=== PATIENT | female | born 1950 | race Caucasian/White ===

== ENCOUNTER 2017-01-17 16:39 | Inpatient (IN) | payer MEDICARE ==
[2017-01-17] VITALS (13 sets, daily range): BP systolic 94–194; BP diastolic 48–102; PULSE 68–81; RESP 16–20; TEMP 97.5–98; O2SAT 95–97
[~2017-01-17] VITALS: Ht 157.5 cm; Wt 93.1 kg
[~2017-01-17 16:39] MED LIST: ADVAI250I PO; ASPI81CH3 PO; GABA100C4 PO; GLUC10TA3 PO; LOSA100T3 PO; METF500 PO; METO25TA6 PO; PREG100 PO; TIOT18I INH; VENTAER INH; WELLTAB39 PO
--- NOTE | 2017-01-17 16:51 | PD ---
HPI Chief Complaint: Chest Pain Time Seen by Provider: 16:48 Travel History International Travel<30 days: No Contact w/Intl Traveler<30days: No Traveled to known affect area: No History of Present Illness HPI This 66-year-old female is complaining of chest pain. She says that last night she started having some pain in the left posterior shoulder blade. The pain is been fairly persistent and today it has moved to the front. There is no history of injury. She does have a history of angina. She had a myocardial infarction about 10 years ago and has 2 stents in her heart. She also has COPD. She does take aspirin every day and has taken her aspirin. She took some nitroglycerin spray which provided some relief and she has been using her oxygen which she generally uses on an as-needed basis fairly persistent PFSH Past Medical History Anxiety: Yes Cardiac Catheterization: Yes COPD: Yes Diabetes: Yes Diminished Hearing: No Kidney Stones: Yes Neurologic: Yes (NEUROPATHY) Immunizations Current: Yes : 4 Para: 3 Miscarriage: 1 Tubal Ligation: Yes Past Surgical History Cholecystectomy: Yes Coronary Stent: Yes (X2) Hysterectomy: Yes Social History Alcohol Use: Yes (OCC) Tobacco Use: No Allergies-Medications (Allergen,Severity, Reaction): Coded Allergies: Iodine (Unverified Allergy, Severe, Anaphylaxis, 01/17/17) Lisinopril (Unverified Allergy, Severe, Cough, 01/17/17) Reported Meds & Prescriptions Reported Meds & Active Scripts Active Reported Nitroglycerin Lingual [place] (Nitroglycerin) 400 Mcg/Act [place] 1 [place] SL DIRECTED PRN ONE SPRAY NEEDED FOR CHEST PAIN, MAY REPEAT EVERY FIVE MINUTES FOR A TOTAL OF 3 DOSES OR CALL 911 IF NO RELIEF Ventolin Hfa 18 GM Inh (Albuterol Sulfate) 90 Mcg/Act Aer 1 Puff INH Q4H PRN Breo Ellipta Inh (Fluticasone/Vilanterol) 100-25 Mcg/Act Inh 1 Puff INH DAILY Use daily at the same time. Spiriva Handihaler (Tiotropium Inh) 18 Mcg Cap 18 Mcg INH DAILY 1 capsule = 18 mcg Melatonin 10 Mg Tab 10 Mg PO HS PRN Gabapentin 100 Mg Cap 100 Mg PO BID Bupropion HCl ER 24 HR (Bupropion HCl) 300 Mg Tab 300 Mg PO DAILY Atorvastatin (Atorvastatin Calcium) 40 Mg Tab 40 Mg PO HS Losartan-Hydrochlorothiazide 50-12.5 Mg Tab 1 Tab PO DAILY Metoprolol Succinate ER 24 HR (Metoprolol Succinate) 25 Mg Tab 25 Mg PO DAILY Review of Systems General / Constitutional: No: Fever, Chills Eyes: No: Diploplia, Blurred Vision HENT: No: Headaches, Vertigo Cardiovascular: Positive: Chest Pain or Discomfort, No: Palpitations Respiratory: Positive: Shortness of Breath (chronic) Gastrointestinal: No: Nausea, Vomiting Genitourinary: No: Frequency, Dysuria Musculoskeletal: No: Myalgias Skin: No Rash, No Itching Psychiatric: No: Anxiety Hematologic/Lymphatic: No: Easy Bruising Physical Exam Narrative GENERAL: Well-developed female SKIN: Warm and dry. HEAD: Atraumatic. Normocephalic. EYES: Pupils equal and round. No scleral icterus. No injection or drainage. ENT: No nasal bleeding or discharge. Mucous membranes pink and moist. NECK: Trachea midline. No JVD. CARDIOVASCULAR: Regular rate and rhythm. No murmur appreciated. RESPIRATORY: No accessory muscle use. Breath sounds diminished bilaterally GASTROINTESTINAL: Abdomen soft, non-tender, nondistended. Hepatic and splenic margins not palpable. MUSCULOSKELETAL: No obvious deformities. No clubbing. No cyanosis. No edema. NEUROLOGICAL: Awake and alert. No obvious cranial nerve deficits. Motor grossly within normal limits. Normal speech. PSYCHIATRIC: Appropriate mood and affect; insight and judgment normal. Data Data Last Documented VS Vital Signs Date Time Temp Pulse Resp B/P Pulse Ox O2 Delivery O2 Flow Rate FiO2 01/17/17 18:11 72 18 138/75 96 Nasal Cannula 3 01/17/17 16:52 97.6 Orders Electrocardiogram (01/17/17 16:48) Basic Metabolic Panel (Bmp) (01/17/17 16:48) B-Type Natriuretic Peptide (01/17/17 16:48) Ckmb (Isoenzyme) Profile (01/17/17 16:48) Complete Blood Count With Diff (01/17/17 16:48) Magnesium (Mg) (01/17/17 16:48) Prothrombin Time / Inr (Pt) (01/17/17 16:48) Act Partial Throm Time (Ptt) (01/17/17 16:48) Troponin I (01/17/17 16:48) Chest, Single Ap (01/17/17 16:48) Ecg Monitoring (01/17/17 16:48) Iv Access Insert/Monitor (01/17/17 16:48) Oximetry (01/17/17 16:48) Oxygen Administration (01/17/17 16:48) Morphine Inj (Morphine Inj) (01/17/17 17:00) Nitroglycerin 2% Oint (Nitroglycerin 2% (01/17/17 17:00) Sodium Chloride 0.9% Flush (Ns Flush) (01/17/17 17:00) Ondansetron Inj (Zofran Inj) (01/17/17 17:00) Admit Order (Ed Use Only) (01/17/17 18:11) Labs Laboratory Tests Test 01/17/17 17:06 White Blood Count 9.6 TH/MM3 Red Blood Count 4.99 MIL/MM3 Hemoglobin 14.8 GM/DL Hematocrit 45.6 % Mean Corpuscular Volume 91.4 FL Mean Corpuscular Hemoglobin 29.6 PG Mean Corpuscular Hemoglobin 32.4 % Concent Red Cell Distribution Width 12.7 % Platelet Count 214 TH/MM3 Mean Platelet Volume 8.4 FL Neutrophils (%) (Auto) 68.8 % Lymphocytes (%) (Auto) 16.2 % Monocytes (%) (Auto) 9.1 % Eosinophils (%) (Auto) 2.4 % Basophils (%) (Auto) 3.5 % Neutrophils # (Auto) 6.6 TH/MM3 Lymphocytes # (Auto) 1.6 TH/MM3 Monocytes # (Auto) 0.9 TH/MM3 Eosinophils # (Auto) 0.2 TH/MM3 Basophils # (Auto) 0.3 TH/MM3 CBC Comment DIFF FINAL Differential Comment Prothrombin Time 10.7 SEC Prothromb Time International 1.0 RATIO Ratio Activated Partial 26.7 SEC Thromboplast Time Sodium Level 136 MEQ/L Potassium Level 4.0 MEQ/L Chloride Level 95 MEQ/L Carbon Dioxide Level 32.7 MEQ/L Anion Gap 8 MEQ/L Blood Urea Nitrogen 15 MG/DL Creatinine 0.91 MG/DL Estimat Glomerular Filtration 62 ML/MIN Rate Random Glucose 129 MG/DL Calcium Level 9.8 MG/DL Magnesium Level 2.2 MG/DL Total Creatine Kinase 80 U/L Troponin I LESS THAN 0.02 NG/ML B-Type Natriuretic Peptide 25 PG/ML MDM Medical Decision Making Medical Screen Exam Complete: Yes Emergency Medical Condition: Yes Medical Record Reviewed: Yes Differential Diagnosis Differential includes COPD, coronary artery disease, atypical chest pain Narrative Course EKG shows normal sinus rhythm. Troponin is normal. Patient has been given Nitropaste and morphine with resolution of her pain. She'll be admitted to the chest pain center Diagnosis Primary Impression: Chest pain Qualified Code: R07.9 - Chest pain, unspecified type Disposition: DISCHARGE HOME Condition: Stable Esa Bernardo MD Jan 17, 2017 16:51
[2017-01-17] MEDS ORDERED: MORPHINE SULFATE 4 MG/ML INJ IV PUSH ONE (17:00)
[2017-01-17] MEDS ORDERED: ONDANSETRON HCL 4 MG/2 ML VIAL IV PUSH ONE (17:00)
[2017-01-17] MEDS ORDERED: NITROGLYCERIN 2% OINT 1 GM PACKET TOP ONE (17:00)
[2017-01-17] MEDS ORDERED: SODIUM CHLORIDE 0.9% FLUSH 5 ML FLUSH IVF PRN ×2 (17:00→18:15)
[2017-01-17] MEDS ORDERED: FLUT1INH INH (17:02)
[2017-01-17] MEDS ORDERED: NITR400A5 SL (17:02)
[2017-01-17] MEDS ORDERED: VENTAER INH (17:02)
[2017-01-17] MEDS ORDERED: GABA100C4 PO (17:02)
[2017-01-17] MEDS ORDERED: ATOR40TA16 PO (17:02)
[2017-01-17] MEDS ORDERED: BUPR300T PO (17:02)
[2017-01-17] MEDS ORDERED: MELA1TAB18 PO (17:02)
[2017-01-17] MEDS ORDERED: LOSA50TA2 PO (17:02)
[2017-01-17] MEDS ORDERED: SPIRCAP INH (17:02)
[2017-01-17] MEDS ORDERED: METO25TA6 PO (17:02)
[2017-01-17 17:10] LABS: AUTOMATED NEUTROPHIL # 6.6 TH/MM3 (1.8-7.7); BASOPHIL # 0.3 TH/MM3 (0-0.2); BASOPHIL % 3.5 % (0.0-2.0); EOSINOPHIL # 0.2 TH/MM3 (0-0.4); EOSINOPHIL % 2.4 % (0.0-4.0); HEMATOCRIT 45.6 % (35.0-46.0); HEMO FLAGS DIFF FINAL; LYMPH % 16.2 % (9.0-44.0); LYMPHOCYTE # 1.6 TH/MM3 (1.0-4.8); MEAN CELL VOLUME 91.4 FL (80.0-100.0); MEAN CORPUSCULAR HEMOGLOBIN 29.6 PG (27.0-34.0); MEAN CORPUSCULAR HGB CONC 32.4 % (32.0-36.0); MONO % 9.1 % (0.0-8.0); NEUT % 68.8 % (16.0-70.0); PLATELET COUNT 214 TH/MM3 (150-450); RED BLOOD COUNT 4.99 MIL/MM3 (4.00-5.30); RED CELL DISTRIBUTION WIDTH 12.7 % (11.6-17.2); WHITE BLOOD COUNT 9.6 TH/MM3 (4.0-11.0)
[2017-01-17 17:19] LABS: CHLORIDE 95 MEQ/L (98-107); SODIUM (NA) 136 MEQ/L (136-145)
[2017-01-17 17:22] LABS: ANION GAP 8 MEQ/L (5-15); BICARBONATE 32.7 MEQ/L (21.0-32.0); BLOOD UREA NITROGEN 15 MG/DL (7-18); MAGNESIUM 2.2 MG/DL (1.5-2.5)
[2017-01-17 17:24] LABS: APTT (PATIENT) 26.7 SEC (24.3-30.1); PROTHROMBIN TIME - PATIENT 10.7 SEC (9.8-11.6)
[2017-01-17 17:25] LABS: GLOMERULAR FILTRATION RATE 62 ML/MIN (>89)
[2017-01-17 17:32] LABS: CREATINE KINASE 80 U/L (26-192)
[2017-01-17 20:44] LABS: CREATINE KINASE 58 U/L (26-192)
--- NOTE | 2017-01-17 21:28 | RADHPO ---
EXAM DATE/TIME: 01/17/2017 17:12 [facility] COMPARISON: No previous studies available for comparison. INDICATIONS : Chest pains for two days. MEDICAL HISTORY : Cardiovascular disease. SURGICAL HISTORY : Cardiac stents placed tens years ago. ENCOUNTER: Initial ACUITY: 2 days PAIN SCORE: 5/10 LOCATION: Left anterior side of chest that radiates down the arm and to her back. FINDINGS: There are minimal bibasilar parenchymal changes worse on the right than the left. The heart is minim ally enlarged. CONCLUSION: Mild increased density right base suggesting early airspace disease. Shon Knowles MD FACR on January 17, 2017 at 17:23 Board Certified Radiologist. This report was verified electronically.
[2017-01-17] MEDS ORDERED: MORPHINE SULFATE 4 MG/ML INJ IV PRN (21:30)
[2017-01-17] MEDS ORDERED: ACETAMINOPHEN 325 MG TAB PO PRN (21:30)
[2017-01-17] MEDS ORDERED: NALOXONE HCL 0.4 MG/ML AMP IV PRN (21:30)
[2017-01-17] MEDS: NITROGLYCERIN 0.4 MG SL 25 TABS/BTL SL PRN (21:34)
[2017-01-17] MEDS: SODIUM CHLORIDE 0.9% FLUSH 5 ML FLUSH IVF SCH (21:35)
[2017-01-17] MEDS: ONDANSETRON HCL 4 MG/2 ML VIAL IV PRN (21:44)
[2017-01-17] MEDS: ACETAMINOPHEN/HYDROcodone 325 MG/7.5 MG TAB PO PRN (21:58)
[2017-01-18] VITALS (15 sets, daily range): BP systolic 97–129; BP diastolic 60–83; PULSE 67–94; RESP 16–20; TEMP 88.6–98.5; O2SAT 91–96
[2017-01-18] MEDS: NITROGLYCERIN 2% OINT 1 GM PACKET TOP SCH ×3 (00:13→23:09)
[2017-01-18 01:33] LABS: CREATINE KINASE 58 U/L (26-192)
[2017-01-18] MEDS: NITROGLYCERIN 0.4 MG SL 25 TABS/BTL SL PRN ×2 (03:15→07:47)
[2017-01-18 09:00] LABS: CREATINE KINASE 52 U/L (26-192)
[2017-01-18] MEDS ORDERED: NON-FORMULARY DRUG (Losartan-Hydrochlorothiazide 1 TAB) PO SCH (09:00)
[2017-01-18] MEDS ORDERED: HYDROCHLOROTHIAZIDE 12.5 MG CAP PO SCH (09:00)
[2017-01-18] MEDS ORDERED: buPROPion HCL 150 MG EXTENDED RELEASE TAB PO SCH (09:00)
[2017-01-18] MEDS: FLUTICASONE 100 MCG/VILANTEROL 25 MCG INHALER INH SCH (10:00)
[2017-01-18] MEDS: LOSARTAN 50 MG TAB PO SCH (10:21)
[2017-01-18] MEDS: SODIUM CHLORIDE 0.9% FLUSH 5 ML FLUSH IVF SCH (10:21)
[2017-01-18] MEDS: GABAPENTIN 100 MG CAP PO SCH ×2 (10:21→21:36)
[2017-01-18] MEDS: METOPROLOL SUCCINATE 25 MG EXTENDED RELEASE TAB PO SCH (10:21)
[2017-01-18] MEDS: ASPIRIN EC 325 MG TABEC PO SCH (10:22)
[2017-01-18] MEDS ORDERED: HYDROCORTISONE SOD SUCCINATE 100 MG VIAL IV ONE (11:00)
--- NOTE | 2017-01-18 11:22 | HHI.HP ---
[facility] Service [facility] Primary Care Physician Gifty Marsh MD Admission Diagnosis CHEST PAIN Diagnoses: (1) Chest pain Diagnosis: Principal (2) Unstable angina Diagnosis: Principal (3) Coronary artery disease Diagnosis: Secondary (4) Hypertension Diagnosis: Secondary (5) Hyperlipidemia Diagnosis: Secondary (6) Diabetes Diagnosis: Secondary Chief Complaint: Chest pain Travel History International Travel<30 Days: No Contact w/Intl Traveler <30 Da: No Traveled to Known Affected Are: No History of Present Illness 66-year-old female with known history of hypertension, hyperlipidemia , coronary disease, cardiac stent placement, diabetes, chronic respiratory failure with oxygen dependency, chronic affective pulmonary disease, history of tobacco use who presented to hospital because 2 day history of chest pain. Patient states that she started developing pain 2 days ago which developed in her left scapular region and radiated into her left anterior chest initially, then started developing left anterior chest pain radiating into the left arm. She denied any nausea, vomiting with the chest discomfort. She did state that she had episodes of feeling hot flash. She did have shortness of breath and dyspnea. She states that the pain can happen at all times. Management happening at rest when she is sitting down relaxing. The pain lasts for approximately 5 minutes in a crescendo type pain with worsening pain 8/10 on a pain scale at its peak. She did not take any medication at home. She does have history coronary artery disease with 2 stent placement. She has not followed up with hand welt butter to undergo any follow-up stress testing or cardiac evaluations. She is not on any aspirin at this time she is on statin for hyperlipidemia. Patient states that the pain did not improve so she came to emergency department for evaluation patient was started on nitroglycerin with minimal relief. She does have nitro paste on at this time and still having active chest pain. Patient did have chest discomfort while evaluating her this morning. Patient did appear to be distressed with her chest discomfort. She was having shortness of breath and dyspnea. Patient was given sublingual with improvement of her chest discomfort. Review of Systems Constitutional: COMPLAINS OF: Diaphoretic episodes, DENIES: Fatigue, Fever, Weight gain, Weight loss, Chills, Dizziness, Change in appetite, Night Sweats Eyes: DENIES: Blurred vision, Diplopia, Eye inflammation, Eye pain, Vision loss , Double Vision Ears, nose, mouth, throat: DENIES: Vertigo, Nasal discharge, Throat pain, Ear Pain, Running Nose, Sinus Pain Respiratory: COMPLAINS OF: Shortness of breath, DENIES: Apneas, Cough, Snoring , Wheezing, Hemoptysis, Sputum production Cardiovascular: COMPLAINS OF: Chest pain, Dyspnea on Exertion, DENIES: Palpitations, Syncope, Lower Extremity Edema, Orthopnea Gastrointestinal: DENIES: Abdominal pain, Black stools, Bloody stools, Constipation, Diarrhea, Nausea, Vomiting, Difficulty Swallowing, Anorexia Neurologic: DENIES: Abnormal gait, Headache, Localized weakness, Paresthesias, Seizures, Speech Problems, Tremor, Poor Balance Psychiatric: DENIES: Anxiety, Confusion, Mood changes, Depression, Hallucinations, Agitation, Suicidal Ideation, Homicidal Ideation, Delusions Past Family Social History Past Medical History Hypertension Hyperlipidemia Diabetes History myocardial infarction Coronary artery disease Chronic obstructive pulmonary disease Chronic respiratory failure with oxygen dependency Anxiety Past Surgical History Cardiac catheterization with stenting Cholecystectomy Tubal ligation Hysterectomy Reported Medications Reported Meds & Active Scripts Active Reported Nitroglycerin Lingual [place] (Nitroglycerin) 400 Mcg/Act [place] 1 [place] SL DIRECTED PRN ONE SPRAY NEEDED FOR CHEST PAIN, MAY REPEAT EVERY FIVE MINUTES FOR A TOTAL OF 3 DOSES OR CALL 911 IF NO RELIEF Ventolin Hfa 18 GM Inh (Albuterol Sulfate) 90 Mcg/Act Aer 1 Puff INH Q4H PRN Breo Ellipta Inh (Fluticasone/Vilanterol) 100-25 Mcg/Act Inh 1 Puff INH DAILY Use daily at the same time. Spiriva Handihaler (Tiotropium Inh) 18 Mcg Cap 18 Mcg INH DAILY 1 capsule = 18 mcg Melatonin 10 Mg Tab 10 Mg PO HS PRN Gabapentin 100 Mg Cap 100 Mg PO BID Bupropion HCl ER 24 HR (Bupropion HCl) 300 Mg Tab 300 Mg PO DAILY Atorvastatin (Atorvastatin Calcium) 40 Mg Tab 40 Mg PO HS Losartan-Hydrochlorothiazide 50-12.5 Mg Tab 1 Tab PO DAILY Metoprolol Succinate ER 24 HR (Metoprolol Succinate) 25 Mg Tab 25 Mg PO DAILY Allergies: Coded Allergies: Iodine (Unverified Allergy, Severe, Anaphylaxis, 01/17/17) Lisinopril (Unverified Allergy, Severe, Cough, 01/17/17) Family History Reviewed and unremarkable Social History Patient quit smoking 5 years ago, prior to that she smoked up to 3 pack a cigarettes a day since she was 20 years old. Patient denies any alcohol or illicit drugs Physical Exam Vital Signs Vital Signs Date Time Temp Pulse Resp B/P Pulse Ox O2 Delivery O2 Flow Rate FiO2 01/18/17 08:24 97.5 71 18 112/83 91 01/18/17 08:06 20 01/18/17 04:00 96.5 67 16 97/60 96 01/18/17 00:00 96.9 67 20 118/73 91 01/17/17 22:57 97.5 71 20 107/73 95 01/17/17 22:30 68 01/17/17 22:15 98.0 71 18 106/70 95 3 01/17/17 21:54 75 16 96/48 97 Nasal Cannula 3 01/17/17 21:37 80 18 94/68 97 Nasal Cannula 3 01/17/17 21:36 79 18 115/67 97 Nasal Cannula 3 01/17/17 20:58 71 16 107/58 97 Nasal Cannula 3 01/17/17 19:41 70 18 108/49 97 Nasal Cannula 3 01/17/17 19:41 70 18 97 Nasal Cannula 3 01/17/17 19:38 96 Nasal Cannula 3.00 01/17/17 18:11 72 18 138/75 96 Nasal Cannula 3 01/17/17 17:32 73 18 163/84 96 Nasal Cannula 3 01/17/17 16:54 95 Nasal Cannula 3 01/17/17 16:54 95 Nasal Cannula 3 01/17/17 16:52 97.6 81 18 194/102 95 Physical Exam GENERAL: Well-developed, well-nourished, in no acute distress. alert and orientated HEENT: Head is normocephalic without any lesions or masses noted. Facial features are symmetric. Eyes: Pupils equal round reactive to light. Extraocular muscles are intact. Conjunctivae were clear. Oropharyngeal: Pharynx without any erythema edema. Tongue is midline without deviation. Buccal mucosa is moist without any masses or lesions NECK: Supple without any masses. Trachea midline no deviation. No JVD, no bruits are appreciated CARDIAC: Regular rhythm, regular rate. S1/S2 are heard. No murmurs gallops or rubs. LUNGS: Clear to auscultation bilaterally. No wheeze, rhonchi or rales. No use of accessory muscles on inspiration or expiration. ABDOMEN: Soft, nontender. Nondistended. Bowel sounds heard in all 4 quadrants. No organomegaly or masses. Negative rebound, negative guarding EXTREMITIES: No edema, pulses are equal bilaterally. No cyanosis or clubbing NEUROLOGY: Mood and affect appear appropriate. Cranial nerves II through XII grossly intact. Muscle strength 5/5 in upper and lower extremities bilaterally. Deep tendon reflexes are 2+ in upper and lower extremities bilaterally. Laboratory Laboratory Tests Test 01/17/17 01/17/17 01/18/17 01/18/17 17:06 20:06 00:05 08:30 White Blood Count 9.6 Red Blood Count 4.99 Hemoglobin 14.8 Hematocrit 45.6 Mean Corpuscular Volume 91.4 Mean Corpuscular Hemoglobin 29.6 Mean Corpuscular Hemoglobin 32.4 Concent Red Cell Distribution Width 12.7 Platelet Count 214 Mean Platelet Volume 8.4 Neutrophils (%) (Auto) 68.8 Lymphocytes (%) (Auto) 16.2 Monocytes (%) (Auto) 9.1 Eosinophils (%) (Auto) 2.4 Basophils (%) (Auto) 3.5 Neutrophils # (Auto) 6.6 Lymphocytes # (Auto) 1.6 Monocytes # (Auto) 0.9 Eosinophils # (Auto) 0.2 Basophils # (Auto) 0.3 CBC Comment DIFF FINAL Differential Comment Prothrombin Time 10.7 Prothromb Time International 1.0 Ratio Activated Partial 26.7 Thromboplast Time Sodium Level 136 Potassium Level 4.0 Chloride Level 95 Carbon Dioxide Level 32.7 Anion Gap 8 Blood Urea Nitrogen 15 Creatinine 0.91 Estimat Glomerular Filtration 62 Rate Random Glucose 129 Calcium Level 9.8 Magnesium Level 2.2 Total Creatine Kinase 80 58 58 52 Troponin I LESS THAN 0.02 LESS THAN 0.02 LESS THAN 0.02 LESS THAN 0.02 B-Type Natriuretic Peptide 25 Result Diagram: 01/17/17 1706 01/17/17 170 Imaging Last Impressions Chest X-Ray 01/17/17 1648 Signed Impressions: Service Date/Time: Tuesday, January 17, 2017 17:12 - CONCLUSION: Mild increased density right base suggesting early airspace disease. Shon Knowles MD FACR Assessment and Plan Assessment and Plan Unstable angina, presenting with typical chest pain. Patient with increased risk factors to include age, hypertension, hyperlipidemia, coronary artery disease, history of tobacco use Patient ruled out for any acute coronary event with serial cardiac enzymes is negative Serial EKGs were performed and reviewed by myself within a indicate any acute changes Patient highly concerning for unstable angina with active chest pain, discussed with hand welt butter on-call Dr. De La Cruz, who recommended the patient be transferred to [facility] for cardiac catheterization this morning. Continue aspirin, beta courtney, statin, nitroglycerin Hypertension, hyperlipidemia, coronary disease Continue home medications Chronic respiratory failure, oxygen dependent Continue O2 supplementation maintain O2 sats greater than 92% Continue nebulizer treatments Diabetes, diet controlled Continue diabetic diet after catheterization DVT prevention Sequential compression devices Physician Certification 2 Midnight Certification Type: Admission for Inpatient Services Order for Inpatient Services The services are ordered in accordance with Medicare regulations or non- Medicare payer requirements, as applicable. In the case of services not specified as inpatient-only, they are appropriately provided as inpatient services in accordance with the 2-midnight benchmark. Estimated LOS (days): 2 days is the estimated time the patient will need to remain in the hospital, assuming treatment plan goals are met and no additional complications. Post-Hospital Plan: Not yet determined Medical Decision Making MDM Remarks The exam, history, and the medical decision-making described in the above note were completed with my assistance as the dictating practitioner. I attest that I had a [id number] encounter with the patient on the same day, and personally performed all of the history, exam, or medical decision making. I reviewed and agree with the plan. Patient with chest pain at rest and considerable symptoms of unstable angina. Cardiology aware. Patient will be transferred for heart catheterization. Discussed with patient and spouse at bedside Problem Qualifiers (1) Chest pain: Qualified Code: R07.9 - Chest pain, unspecified type (2) Coronary artery disease: Qualified Code: I25.110 - Coronary artery disease with unstable angina pectoris , unspecified vessel or lesion type, unspecified whether jena or transplanted heart (3) Hypertension: Qualified Code: I15.9 - Secondary hypertension (4) Hyperlipidemia: Qualified Code: E78.5 - Hyperlipidemia, unspecified hyperlipidemia type (5) Diabetes: Qualified Code: E11.8 - Type 2 diabetes mellitus with complication, without long-term current use of insulin Case Bunn Jan 18, 2017 11:22 Estelle Carcamo MD Jan 18, 2017 11:56
--- NOTE | 2017-01-18 11:23 | MB ---
cc: OSMIN MCCONNELL DATE OF CONSULTATION 01/18/2017 INDICATION Unstable angina. HISTORY OF PRESENT ILLNESS This is a 66-year-old female who presented to the [facility] with progressive chest pain symptoms. She has prior history of myocardial infarction about 10 years ago, in addition prior percutaneous intervention on two occasions. She has been describing worsening chest pain, substernal, radiating towards the left posterior shoulder blade. Initially it was just exertional but now it is occurring both with exertion and at rest. She took nitroglycerin spray with some relief, was put on oxygen and was going to be admitted to the chest pain center. She was evaluated by Arnoldo Bunn, the physician central supply assistant over at [facility]. She was having continued chest pain with only minimal exertion. I felt like she was not a good candidate for a stress test given her high pretest likelihood and ongoing symptoms. She was having active chest pain. He called over to discuss the case and we planned at that point to transfer her for cardiac catheterization. PAST MEDICAL HISTORY 1. COPD. 2. CAD. 3. Prior FL. 4. Percutaneous intervention. 5. Diabetes. 6. Nephrolithiasis. 7. Hypertension. 8. Hyperlipidemia. SOCIAL HISTORY Reports occasional alcohol use. Denies any tobacco use. No drug use. ALLERGIES IODINE. LISINOPRIL. REPORTED MEDICATIONS 1. Nitroglycerin. 2. Spiriva. 3. Melatonin. 4. Gabapentin. 5. Bupropion. 6. Atorvastatin. 7. Losartan. 8. Metoprolol. REVIEW OF SYSTEMS A 12-point review of systems was performed, negative unless otherwise noted in the History of Present Illness. FAMILY HISTORY Denies any family history of early coronary artery disease or sudden cardiac . LABORATORY DATA WBC 9.6, hemoglobin is 14.5, platelet count is 214. INR is 1. Sodium 136, potassium 4.0, BUN is 15, creatinine 0.91. Troponins negative. PHYSICAL EXAMINATION VITAL SIGNS: Temperature 97, pulse 71, blood pressure 112/83 mmHg. IN GENERAL: Alert and oriented x 3. In mild distress. HEAD AND NECK: No elevated jugular veins. No thyromegaly or lymphadenopathy. Pupils are reactive to light and accommodation. LUNGS: Clear to auscultation bilaterally. CARDIOVASCULAR EXAM: Regular rate and rhythm, without murmurs, rubs or gallops. ABDOMEN: Nontender, nondistended. Good bowel sounds. No hepatosplenomegaly. EXTREMITIES: No clubbing, cyanosis or edema. Good peripheral pulses. NEUROLOGIC: Cranial nerves intact. Motor and sensory grossly intact. ELECTROCARDIOGRAM Her initial electrocardiogram shows poor R-wave progression. There are inverted T-waves in the lateral leads on 01/17 at 10 p.m. Next electrocardiogram on 01/18 at 8:20 a.m. now shows inverted T-waves are upright in the lateral leads. ASSESSMENT 1. Unstable angina. 2. History of coronary artery disease, myocardial infarction, percutaneous intervention. 3. Diabetes. 4. Hypertension. 5. Hyperlipidemia. PLAN Symptoms are as characteristic of unstable angina and have been progressive despite medical therapy with nitroglycerin and beta courtney. She has negative troponin but symptoms wax and wane. She has dynamic EKG changes in the lateral leads. I do not think she is a good candidate for stress test. I agree that we need definitive workup. We will plan for cardiac catheterization via radial approach. She does have an IODINE ALLERGY so we will need to prep her with steroids. Given her ongoing symptoms, we will send her over more urgently for catheterization. Osmin Mcconnell MD SM/SSB /10:44 AM /11:12 AM
[2017-01-18] MEDS ORDERED: RESP: ALBUTEROL 2.5 MG/IPRATROPIUM 0.5 MG NEB (PRN) NEB (12:00)
[2017-01-18] MEDS ORDERED: HYDROCORTISONE SOD SUCCINATE 100 MG VIAL ONE (12:10)
[2017-01-18] MEDS ORDERED: HEPARIN SODIUM - IV 10,000 UNITS/10 ML VIAL ONE (12:10)
[2017-01-18] MEDS ORDERED: MIDAZOLAM HCL 2 MG/2 ML VIAL ONE (12:10)
[2017-01-18] MEDS ORDERED: HEPARIN-NS/PF INJ 500 ML ONE (12:11)
[2017-01-18] MEDS ORDERED: diphenhydrAMINE HCL 50 MG/ML VIAL ONE (12:14)
[2017-01-18] MEDS ORDERED: SODIUM CHLOR 0.9% 1000 ML INJ 1,000 ML IV SCH (12:38)
[2017-01-18] MEDS ORDERED: MISC INFORMATION XX ONE (12:45)
[2017-01-18] MEDS ORDERED: BACITRACIN OINT 0.9 GM PKT TOP ONE (12:45)
--- NOTE | 2017-01-18 13:15 | MA ---
cc: MICHELLE MCCONNELL MD DATE 01/18/2017 PROCEDURE PERFORMED 1. Fluoroscopy with interpretation 2. Left heart catheterization 3. Coronary angiography METHOD The risks, benefits and alternatives discussed with the patient. The patient understood and consented to the procedure. PROCEDURE The patient brought into the catheterization lab and placed on the catheterization table. Right wrist was prepped and draped in a sterile fashion. The right wrist was anesthetized with 2% lidocaine. Right radial artery was cannulated and a 6-Bahamian 7 cm sheath was placed without difficulty. INITIAL HEMODYNAMICS A 6-Bahamian JR-5 catheter was advanced across the aortic valve without difficulty. Intraventricular hemodynamics measured 110/5 mmHg. CORONARY ANGIOGRAPHY The left coronary circulation was selectively engaged with a 6-Bahamian JL-3.5 catheter. Right coronary circulation selectively engaged with a 6-Bahamian JR-5 catheter. CORONARY ANATOMY 1. The left main coronary artery has 30% stenosis distally. 2. Left anterior descending coronary has a stent present proximally. There is severe in-stent restenosis of 90% tubular stenosis. The remainder of the vessel has minor luminal irregularities. There is somewhat smaller diagonal branches all which have minor luminal irregularities. 3. Left circumflex gives rise to a large first obtuse marginal branch. At the bifurcation, the first obtuse marginal branch has a 70-75% stenosis. The remainder of the vessel in the circumflex has minor luminal irregularities. There is a distal stent with only minor luminal irregularities. 4. The right coronary is a dominant vessel giving rise to a posterior descending branch. The right coronary has diffuse stenosis throughout at 95%. CONCLUSIONS 1. Severe three-vessel coronary artery disease. 2. Normal left-sided filling pressures. PLAN We will obtain a 2-D echocardiogram. I did not want to give her any further intravenous contrast given her allergy flow risk of anaphylaxis even though she had been appropriately prepped with steroids and Benadryl. She does have multivessel disease and diabetes with the in-stent restenosis of her prior stent. I think she would be a good surgical candidate. We will consult cardiothoracic surgery. She will need an evaluation for her COPD with a pulmonary function test, but otherwise I think she will do well. MD JOHNATHAN Wynne/SKY /12:55 PM /1:10 PM
[2017-01-18 13:42] LABS: HDL CHOLESTEROL 91.6 MG/DL (40.0-60.0)
[2017-01-18] MEDS ORDERED: IOHEXOL 350 MG/ML 50 ML BTL (for Cath Lab) OTHER ONE (13:54)
--- NOTE | 2017-01-18 16:59 | EKG ---
Date Performed: 01/17/2017 Time Performed: 22:04:48 PTAGE: 66 years EKG: Sinus rhythm Right axis deviation Right ventricular hypertrophy Lateral T wave changes may be due to myocardial i schemia Abnormal ECG PREVIOUS TRACING : 01/17/2017 21.00 Since previous tracing, no significant change noted DOCTOR: Valerie Mcclain Interpretating Date/Time 01/18/2017 16:57:43
--- NOTE | 2017-01-18 16:59 | EKG ---
Date Performed: 01/17/2017 Time Performed: 21:00:30 PTAGE: 66 years EKG: Sinus rhythm Normal ECG PREVIOUS TRACING : 01/17/2017 16.45 Since previous tracing, no significant change noted DOCTOR: Valerie Mcclain Interpretating Date/Time 01/18/2017 16:57:28
--- NOTE | 2017-01-18 17:00 | EKG ---
Date Performed: 01/18/2017 Time Performed: 08:21:42 PTAGE: 66 years EKG: Sinus rhythm . Septal T wave changes are nonspecific Borderline ECG PREVIOUS TRACING : 01/17/2017 16.45 Since previous tracing, no significant change noted DOCTOR: Valerie Mcclain Interpretating Date/Time 01/18/2017 16:57:57
[2017-01-18] MEDS ORDERED: SODIUM CHLORIDE 0.9% FLUSH 5 ML FLUSH IV FLUSH PRN (17:15)
[2017-01-18] MEDS ORDERED: PAPAVERINE INJ 60 MG, NITROGLYCERIN INJ 100 MCG, DILTIAZEM INJ 100 MG in SODIUM CHLORID... IRRIGATION SCH (17:15)
[2017-01-18] MEDS ORDERED: INSULIN REGULAR (IV INFUSION) 100 UNITS in SODIUM CHLORIDE 0.9% INJ 100 ML IV SCH (17:15)
[2017-01-18] MEDS ORDERED: CHLORHEXIDINE GLUCONATE 4% SOLN 120 ML BTL TOPICAL SCH (17:15)
[2017-01-18] MEDS ORDERED: CEFAZOLIN INJ 500 MG in SODIUM CHLORIDE 0.9% IRR BTL 500 ML IRRIGATION SCH (17:15)
[2017-01-18] MEDS ORDERED: METOPROLOL TARTRATE 25 MG TAB PO SCH (17:15)
[2017-01-18] MEDS ORDERED: ceFAZolin 2 GM PREMIX 50 ML IV SCH (17:15)
--- NOTE | 2017-01-18 17:42 | MB ---
cc: ANNA TAYLOR DATE OF CONSULTATION 01/18/17 1950. Patient who presented to [facility] emergency department with complaint of chest pain a couple days ago. She was admitted on the . Pain was in the back of her left shoulder that radiated around to the front which was scale of 7-8 relieved with nitro and then completely with morphine. The patient is currently pain free. She underwent cardiac cath today by Dr. De La Cruz which showed left main disease of 30%, proximal LAD 90%, diagonal 30%, circumflex 75%, the OM 75% and the RCA was 95% stenosed. The echo is pending to evaluate her EF. She has an ALLERGY TO IODINE, therefore, he did not want to proceed with an LV gram. PAST MEDICAL HISTORY 1. Coronary artery disease with prior PR. She had stent x2 to the LAD and the posterolateral branch at [facility] by Dr. Curry Hodge, a drug-eluting stent at that time. 2. COPD with chronic respiratory hypoxemia, oxygen dependency. She uses 3 liters at home. Her photo printer is Dr. Walter Lam. Her primary care is Dr. Marsh 3. Anxiety. 4. Diabetes mellitus. 5. Hyperlipidemia, 6. Hypertension. PAST SURGICAL HISTORY 1. Coronary stenting x2 in 2005, 2. Cholecystectomy, 3. Tubal ligation, 4. Hysterectomy MEDICATIONS home meds 1. Nitro p.r.n. 2. Ventolin inhaler 3. Breo Ellipta inhaler 4. Melatonin. 5. Gabapentin 6. Atorvastatin. 7. Losartan 8. Hydrochlorothiazide 9. Metoprolol. 10. ____ injection ALLERGIES IODINE LISINOPRIL FAMILY HISTORY The patient adopted. SOCIAL HISTORY The patient , three children. She smoked. She quit smoking five years ago. Prior to that, she smoked three packs a day since she was 20 years old. No illicit drugs or alcohol. REVIEW OF SYSTEMS GENERAL: No night sweats, fever, heat and cold intolerance. SKIN: No psoriasis, itching or hives. HEENT: No blurred vision, hearing loss. RESPIRATORY: Chronic shortness of breath. Occasional cough. CARDIOVASCULAR: As above in HPI. GASTROINTESTINAL: No diarrhea, vomiting. GENITOURINARY:: No burning, frequency, urgency ONLINE PROJECT MANAGER: No history of TIA, CVA, seizure disorder. ENDOCRINE: Positive for diabetes PHYSICAL EXAMINATION VITAL SIGNS: On exam, blood pressure 112/80, heart rate 70, afebrile. O2 sat 93 on two liters, but she takes 3 liters at home. HEENT: Head is normocephalic, atraumatic. Pupils equal and reactive. Oral mucosa pink, moist. NECK: Supple. No JVD. CARDIOVASCULAR: Heart sounds S1-S2. Regular rate and rhythm. No rubs, murmurs, gallops. LUNGS: Diminished in the bases, otherwise, clear to auscultation. No wheezes, rales or rhonchi. ABDOMEN: Soft, obese, nontender. No masses or organomegaly. EXTREMITIES: Reveal palpable distal pulses, +1 with good capillary refill. LABORATORY DATA INR 1.0, hemoglobin 14, hematocrit of 45, white cell count 9.6, platelet count of 214. Sodium 136, potassium 4.0, BUN of 8, creatinine 15, glucose was 129, troponin less than 0.02. Further testing includes carotid ultrasound. CT chest because of her longstanding history of O2 dependence and chronic obstructive pulmonary disease. Baseline a ABG. Carotid ultrasound leg vein mapping pending. IMPRESSION This is a 66-year-old female history of coronary artery disease prior stenting x2 in LAD and posterolateral branch in 2005 at [facility] in [place] now presenting with unstable angina, negative troponins, however, she is status post heart catheterization with multivessel disease. 2-D echo pending to evaluate her EF and for any valvular disease. PLAN Plan at this time will be for coronary artery bypass grafting x3. Procedures, alternatives and the risks to be discussed by Dr. Anna Taylor. STS data will be documented in the electronic record and discussed with the patient. Further planning per Dr. Taylor. Dictated by CORINNE Domínguez MD LUIZA Johnson/ /5:19 PM /10:05 AM
[2017-01-18] MEDS: SODIUM CHLORIDE 0.9% FLUSH 5 ML FLUSH IV FLUSH SCH (21:00)
--- NOTE | 2017-01-18 21:31 | RADRPT ---
EXAM DATE/TIME: 01/18/2017 18:47 [facility] COMPARISON: No previous studies available for comparison. INDICATIONS : Preop cardiac surgery. MEDICAL HISTORY : Myocardial infarction. Congestive heart failure. Renal calculi. Neuropathy. Chest pain. Dyspnea. COPD . Diabetes. SURGICAL HISTORY : Coronary artery stent. Hysterectomy. Tubal ligation. Cardiac cath. Cholecystectomy. ENCOUNTER: Initial ACUITY: 1 day PAIN SCORE: 0/10 LOCATION: Bilateral neck PEAK SYSTOLIC VELOCITIES (cm/sec): ICA/CCA RATIO: Right: 1.2 Left: 1.2 ICA: Right: 78 Left: 67 CCA: Right: 66 Left: 58 ECA: Right: 87 Left: 97 VERTEBRAL: Right: 31 antegrade Left: 23 antegrade Elevated flow velocities and ICA/CCA ratios have been found to correlate with increased degrees of vessel stenosis, calculated as percentage of diameter relative to a normal segment of distal ICA/CCA FINDINGS: Calcified and noncalcified plaque is identified in both carotid bifurcations. RIGHT CAROTID: No significant stenosis is visualized. The waveforms are within normal limits. LEFT CAROTID: No significant stenosis is visualized. The waveforms are within normal limits. VERTEBRAL ARTERIES: Antegrade flow is seen in both vertebral arteries. MISCELLANEOUS: None. CONCLUSION: Bilateral calcified and non-calcified carotid plaques without sonographic or Doppler evidence of sign ificant stenosis. Antegrade flow both vertebral arteries. Herbert Pope MD on January 18, 2017 at 21:28 Board Certified Radiologist. This report was verified electronically.
--- NOTE | 2017-01-18 21:32 | RADRPT ---
EXAM DATE/TIME: 01/18/2017 19:19 [facility] COMPARISON: No previous studies available for comparison. INDICATIONS : Preop cardiac surgery. MEDICAL HISTORY : Myocardial infarction. Congestive heart failure. Renal calculi. Neuropathy. Chest pain. Dyspnea. COPD . Diabetes. SURGICAL HISTORY : Coronary artery stent.Hysterectomy. Tubal ligation.Cardiac cath. Cholecystectomy. ENCOUNTER: Initial ACUITY: 1 day PAIN SCORE: 0/10 LOCATION: Bilateral leg. TECHNIQUE: Venous ultrasound of the left and right leg was performed from the inguinal ligament to the proximal calf. Real-time, color Doppler and spectral tracing, compression and augmentation techniques were us ed. FINDINGS: RIGHT LEG: There is normal compressibility of the deep venous system from the inguinal region to the proximal ca lf. No echogenic clot is seen in the lumen of the common femoral, femoral, popliteal, and posterior tibial veins. There is a normal response of the venous system to proximal and distal augmentation an d respiration. LEFT LEG: There is normal compressibility of the deep venous system from the inguinal region to the proximal ca lf. No echogenic clot is seen in the lumen of the common femoral, femoral, popliteal, and posterior tibial veins. There is a normal response of the venous system to proximal and distal augmentation an d respiration. CONCLUSION: No evidence of DVT. Herbert Pope MD on January 18, 2017 at 21:30 Board Certified Radiologist. This report was verified electronically.
--- NOTE | 2017-01-18 21:33 | RADRPT ---
EXAM DATE/TIME: 01/18/2017 19:28 [facility] COMPARISON: No previous studies available for comparison. INDICATIONS : Preop cardiac surgery. MEDICAL HISTORY : Myocardial infarction. Congestive heart failure. Renal calculi. Neuropathy. Chest pain. Dyspnea. COPD . Diabetes. SURGICAL HISTORY : Coronary artery stent. Hysterectomy. Tubal ligation. Cardiac cath. Cholecystectomy. ENCOUNTER: Initial ACUITY: 1 day PAIN SCORE: 0/10 LOCATION: Bilateral leg. GREATER SAPHENOUS VEIN THIGH: PROXIMAL: Right 5 mm Left 4 mm MID: Right 3 mm Left 4 mm DISTAL: Right 4 mm Left 4 mm CALF: PROXIMAL: Right 2 mm Left 3 mm MID: Right 3 mm Left 2 mm DISTAL: Right 2 mm Left 2 mm FINDINGS: The venous system of the lower extremities are patent by color Doppler imaging. Measurements of the leg veins (in mm) are listed above. CONCLUSION: No evidence of DVT. Superficial venous system is patent with measurements given above. Herbert Pope MD on January 18, 2017 at 21:30 Board Certified Radiologist. This report was verified electronically.
[2017-01-18] MEDS: ACETAMINOPHEN/HYDROcodone 325 MG/5 MG TAB PO PRN (21:36)
[2017-01-18] MEDS: ATORVASTATIN 40 MG TAB PO SCH (21:37)
[2017-01-19] VITALS (19 sets, daily range): BP systolic 100–156; BP diastolic 51–86; PULSE 60–84; RESP 18–20; TEMP 97.6–98.6; O2SAT 95–99
[2017-01-19] MEDS: NITROGLYCERIN 2% OINT 1 GM PACKET TOP SCH ×3 (05:53→18:00)
[2017-01-19 05:58] LABS: BLOOD GAS BASE EXCESS 7.2 mmol/L (-2-2); BLOOD GAS CARBOXYHEMOGLOBIN 1.2 % (0-4); BLOOD GAS HCO3 33 mmol/L (22-26); BLOOD GAS METHEMOGLOBIN 1.3 % (0-2); BLOOD GAS O2 HGB SATURATION 95 % (90-100); BLOOD GAS OXYGEN CONTENT 17.8 Vol % (12.0-20.0); BLOOD GAS PCO2 62 mmHg (38-42); BLOOD GAS PO2 94 mmHg (61-120); BLOOD GAS TOTAL HGB 13.4 G/DL (12.0-16.0); TEMP CORR TO 98.6
[2017-01-19 05:59] LABS: CRITICAL VALUE YES; DRAW SITE RT BRACHIAL; LITER FLOW 2 L/M; NUMBER OF ARTERIAL PUNCTURES 1; OXYGEN DEVICE NASAL CANNULA; STAT NO; ULNAR PULSE PRESENT
[2017-01-19 07:12] LABS: BASOPHIL % 0.6 % (0.0-2.0); EOSINOPHIL # 0.2 TH/MM3 (0-0.4); EOSINOPHIL % 2.1 % (0.0-4.0); HEMATOCRIT 39.1 % (35.0-46.0); HEMO FLAGS DIFF FINAL; LYMPHOCYTE # 1.5 TH/MM3 (1.0-4.8); MEAN CELL VOLUME 92.3 FL (80.0-100.0); MEAN CORPUSCULAR HEMOGLOBIN 30.6 PG (27.0-34.0); MEAN CORPUSCULAR HGB CONC 33.1 % (32.0-36.0); MONO % 9.3 % (0.0-8.0); PLATELET COUNT 163 TH/MM3 (150-450); RED BLOOD COUNT 4.24 MIL/MM3 (4.00-5.30); RED CELL DISTRIBUTION WIDTH 13.2 % (11.6-17.2); WHITE BLOOD COUNT 7.4 TH/MM3 (4.0-11.0)
[2017-01-19 07:30] LABS: ANION GAP 7 MEQ/L (5-15); BICARBONATE 34.7 MEQ/L (21.0-32.0); BLOOD UREA NITROGEN 14 MG/DL (7-18); CHLORIDE 96 MEQ/L (98-107); GLOMERULAR FILTRATION RATE 63 ML/MIN (>89); POTASSIUM 3.4 MEQ/L (3.5-5.1); SODIUM (NA) 138 MEQ/L (136-145)
--- NOTE | 2017-01-19 08:35 | PD.CARD.PN ---
Subjective Subjective Remarks denies chest pain (Jefferson Gordon) Objective Vital Signs / I&O Vital Signs Date Time Temp Pulse Resp B/P Pulse Ox O2 Delivery O2 Flow Rate FiO2 01/19/17 06:00 84 01/19/17 05:00 60 01/19/17 04:07 96 Nasal Cannula 2.00 01/19/17 04:04 97.6 66 129/63 96 01/19/17 04:00 62 01/19/17 03:00 65 01/19/17 02:00 64 01/19/17 01:00 72 01/19/17 00:00 72 01/19/17 00:00 98.1 79 142/83 95 01/18/17 23:00 73 01/18/17 22:00 84 01/18/17 21:00 84 01/18/17 20:00 86 01/18/17 20:00 98.5 84 129/82 95 01/18/17 19:00 94 01/18/17 18:00 75 01/18/17 17:41 88.6 84 18 128/67 95 01/18/17 17:00 73 01/18/17 16:00 71 01/18/17 15:00 74 01/18/17 10:05 93 Nasal Cannula 2.00 I/O 01/18/17 01/18/17 01/18/17 01/19/17 01/19/17 01/19/17 07:00 15:00 23:00 07:00 15:00 23:00 Intake Total 0 ml 980 ml 1240 ml Output Total 500 ml Balance 0 ml 480 ml 1240 ml Intake Oral 0 ml 480 ml 240 ml IV Total 500 ml 1000 ml Output Urine Total 500 ml # Voids 1 2 3 # Bowel Movements 0 0 Physical Exam GENERAL: Well-nourished, well-developed patient in no apparent distress. NECK: No JVD. No carotid bruit. CARDIOVASCULAR: Regular rate and rhythm. S1/S2 no murmur, rub, or gallop. RESPIRATORY: No accessory muscle use. Clear to auscultation. Breath sounds equal bilaterally. GASTROINTESTINAL: Abdomen soft, non-tender, nondistended. MUSCULOSKELETAL: Extremities without clubbing, cyanosis, or edema.right radial pulse 2+ Laboratory Laboratory Tests Test 01/19/17 01/19/17 05:42 05:57 Blood Gas Puncture Site RT BRACHIAL Blood Gas Patient Temperature 98.6 Blood Gas HCO3 33 mmol/L Blood Gas Base Excess 7.2 mmol/L Blood Gas Oxygen Saturation 95 % Arterial Blood pH 7.35 Arterial Blood Partial 62 mmHg Pressure CO2 Arterial Blood Partial 94 mmHg Pressure O2 Arterial Blood Oxygen Content 17.8 Vol % Arterial Blood 1.2 % Carboxyhemoglobin Arterial Blood Methemoglobin 1.3 % Blood Gas Hemoglobin 13.4 G/DL Oxygen Delivery Device NASAL CANNULA Blood Gas Liter Flow 2 L/M White Blood Count 7.4 TH/MM3 Red Blood Count 4.24 MIL/MM3 Hemoglobin 13.0 GM/DL Hematocrit 39.1 % Mean Corpuscular Volume 92.3 FL Mean Corpuscular Hemoglobin 30.6 PG Mean Corpuscular Hemoglobin 33.1 % Concent Red Cell Distribution Width 13.2 % Platelet Count 163 TH/MM3 Mean Platelet Volume 8.7 FL Neutrophils (%) (Auto) 68.0 % Lymphocytes (%) (Auto) 20.0 % Monocytes (%) (Auto) 9.3 % Eosinophils (%) (Auto) 2.1 % Basophils (%) (Auto) 0.6 % Neutrophils # (Auto) 5.0 TH/MM3 Lymphocytes # (Auto) 1.5 TH/MM3 Monocytes # (Auto) 0.7 TH/MM3 Eosinophils # (Auto) 0.2 TH/MM3 Basophils # (Auto) 0.0 TH/MM3 CBC Comment DIFF FINAL Differential Comment Sodium Level 138 MEQ/L Potassium Level 3.4 MEQ/L Chloride Level 96 MEQ/L Carbon Dioxide Level 34.7 MEQ/L Anion Gap 7 MEQ/L Blood Urea Nitrogen 14 MG/DL Creatinine 0.90 MG/DL Estimat Glomerular Filtration 63 ML/MIN Rate Random Glucose 151 MG/DL Calcium Level 8.9 MG/DL Blood Type B NEGATIVE Antibody Screen NEGATIVE Crossmatch Leukocyte-Reduced Red Blood Cells Blood Bank Comment (Jefferson Gordon) Assessment and Plan Problem List: (1) Coronary artery disease Assessment and Plan plan is for CABG secondary to multivessel CAD, will sign off. Call with further questions (Jefferson Gordon) Problem Qualifiers (1) Coronary artery disease: Qualified Code: I25.110 - Coronary artery disease with unstable angina pectoris , unspecified vessel or lesion type, unspecified whether comanche or transplanted heart Jefferson Gordon Jan 19, 2017 08:34 Osmin De La Cruz MD Jan 19, 2017 09:05
[2017-01-19] MEDS: GABAPENTIN 100 MG CAP PO SCH ×2 (08:54→21:56)
[2017-01-19] MEDS: ASPIRIN EC 325 MG TABEC PO SCH (08:55)
[2017-01-19] MEDS: METOPROLOL SUCCINATE 25 MG EXTENDED RELEASE TAB PO SCH (08:55)
[2017-01-19] MEDS: LOSARTAN 50 MG TAB PO SCH (08:55)
--- NOTE | 2017-01-19 08:55 | HHI.PR ---
Subjective Remarks resting comfortably with no distress. no chest pain or sob this morning. Objective Vitals Vital Signs Date Time Temp Pulse Resp B/P Pulse Ox O2 Delivery O2 Flow Rate FiO2 01/19/17 06:00 84 01/19/17 05:00 60 01/19/17 04:07 96 Nasal Cannula 2.00 01/19/17 04:04 97.6 66 129/63 96 01/19/17 04:00 62 01/19/17 03:00 65 01/19/17 02:00 64 01/19/17 01:00 72 01/19/17 00:00 72 01/19/17 00:00 98.1 79 142/83 95 01/18/17 23:00 73 01/18/17 22:00 84 01/18/17 21:00 84 01/18/17 20:00 86 01/18/17 20:00 98.5 84 129/82 95 01/18/17 19:00 94 01/18/17 18:00 75 01/18/17 17:41 88.6 84 18 128/67 95 01/18/17 17:00 73 01/18/17 16:00 71 01/18/17 15:00 74 01/18/17 10:05 93 Nasal Cannula 2.00 I/O 01/18/17 01/18/17 01/18/17 01/19/17 01/19/17 01/19/17 07:00 15:00 23:00 07:00 15:00 23:00 Intake Total 0 ml 980 ml 1240 ml Output Total 500 ml Balance 0 ml 480 ml 1240 ml Intake Oral 0 ml 480 ml 240 ml IV Total 500 ml 1000 ml Output Urine Total 500 ml # Voids 1 2 3 # Bowel Movements 0 0 Result Diagram: 01/19/17 0557 01/19/17 0557 Imaging Last Impressions Lower Extremity Ultrasound 01/18/17 0000 Signed Impressions: Service Date/Time: Wednesday, January 18, 2017 19:28 - CONCLUSION: No evidence of DVT. Superficial venous system is patent with measurements given above. Herbert Pope MD Carotid Artery Ultrasound 01/18/17 0000 Signed Impressions: Service Date/Time: Wednesday, January 18, 2017 18:47 - CONCLUSION: Bilateral calcified and non-calcified carotid plaques without sonographic or Doppler evidence of significant stenosis. Antegrade flow both vertebral arteries. Herbert Pope MD Chest X-Ray 01/17/17 1648 Signed Impressions: Service Date/Time: Tuesday, January 17, 2017 17:12 - CONCLUSION: Mild increased density right base suggesting early airspace disease. Shon Knowles MD FACR Objective Remarks GENERAL: This is a well-nourished, well-developed patient, in no apparent distress. CARDIOVASCULAR: Regular rate and regular rhythm without murmurs, gallops, or rubs. RESPIRATORY: Clear to auscultation. Breath sounds equal bilaterally. No wheezes , rales, or rhonchi. GASTROINTESTINAL: Abdomen soft, non-tender, nondistended. Normal, active bowel sounds MUSCULOSKELETAL: Extremities without clubbing, cyanosis, or edema. NEURO: Alert & Oriented x4 to person, place, time, situation. Moves all ext x4 Procedures cardiac cath. Medications and IVs Current Medications Morphine Sulfate (Morphine Inj) 4 mg ONCE ONCE IV PUSH Last administered on 17:30; Start 01/17/17 at 17:00; Stop 01/17/17 at 17:01; Status DC Nitroglycerin (Nitroglycerin 2% Oint) 1 inch ONCE ONCE TOP Last administered on 01/17/17 17:28; Start 01/17/17 at 17:00; Stop 01/17/17 at 17:01; Status DC IV Flush (NS Flush) 2 ml UNSCH PRN IVF FLUSH AFTER USING IV ACCESS; Start 01/17 at 17:00; Stop 01/17/17 at 18:18; Status DC Ondansetron HCl (Zofran Inj) 4 mg ONCE ONCE IV PUSH Last administered on 17:28; Start 01/17/17 at 17:00; Stop 01/17/17 at 17:01; Status DC IV Flush (NS Flush) 2 ml UNSCH PRN IVF FLUSH AFTER USING IV ACCESS Last administered on 01/18/17 00:13; Start 01/17/17 at 18:15; Stop 01/18/17 at 17:35 ; Status DC IV Flush (NS Flush) 2 ml BID IVF Last administered on 01/18/17 10:21; Start at 21:00; Stop 01/18/17 at 17:35; Status DC Ondansetron HCl (Zofran Inj) 4 mg Q6H PRN IV NAUSEA Last administered on 21:44; Start 01/17/17 at 18:15 Nitroglycerin (Nitroglycerin 2% Oint) 1 inch Q6HR TOP Last administered on 01/18 05:37; Start 01/18/17 at 00:00; Stop 01/18/17 at 08:11; Status DC Nitroglycerin (Nitrostat Sl) 0.4 mg Q5M PRN SL X 3 doses for chest pain Last administered on 01/18/17 07:47; Start 01/17/17 at 21:30 Acetaminophen (Tylenol) 650 mg Q6H PRN PO PAIN SCALE 1 TO 2; Start 01/17/17 at 21:30 Acetaminophen/ Hydrocodone Bitart ([place] 5-325 Mg) 1 tab Q4H PRN PO PAIN SCALE 3 TO 5 Last administered on 01/18/17 21:36; Start 01/17/17 at 21:30 Acetaminophen/ Hydrocodone Bitart ([place] 7.5-325 Mg) 1 tab Q4H PRN PO PAIN SCALE 6 TO 10 Last administered on 01/17/17 21:58; Start 01/17/17 at 21:30 Morphine Sulfate (Morphine Inj) 2 mg Q3H PRN IV BREAKTHROUGH PAIN; Start at 21:30; Stop 01/18/17 at 08:13; Status DC Naloxone HCl (Narcan Inj) 0.4 mg UNSCH PRN IV SEE LABEL COMMENTS; Start at 21:30 Atorvastatin Calcium (Lipitor) 40 mg HS PO Last administered on 01/18/17 21:37 ; Start 01/18/17 at 21:00 Bupropion HCl (Wellbutrin Xl 24 Hr) 300 mg DAILY PO ; Start 01/18/17 at 09:00 Fluticasone/ Vilanterol (Breo Ellipta 100-25 Inh) 1 puff DAILY INH ; Start 01/18 at 10:00 Gabapentin (Neurontin) 100 mg BID PO Last administered on 01/18/17 21:36; Start 01/18/17 at 09:00 Metoprolol Succinate (Toprol Xl) 25 mg DAILY PO Last administered on 01/18/17 10:21; Start 01/18/17 at 09:00 Non-Formulary Medication 1 tab DAILY PO BPM; Start 01/18/17 at 09:00; Status UNV Nitroglycerin (Nitroglycerin 2% Oint) 0.5 inch Q6HR TOP Last administered on 05:53; Start 01/18/17 at 12:00 Aspirin (Ecotrin Ec) 325 mg DAILY PO Last administered on 01/18/17 10:22; Start 01/18/17 at 09:00 Losartan Potassium (Cozaar) 50 mg DAILY PO Last administered on 01/18/17 10:21 ; Start 01/18/17 at 09:00 Hydrochlorothiazide (Microzide) 12.5 mg DAILY PO Last administered on 10:21; Start 01/18/17 at 09:00; Stop 01/18/17 at 10:40; Status DC Hydrocortisone Sodium Succinate (SoluCORTEF INJ) 200 mg ONCE ONCE IV Last administered on 01/18/17 11:00; Start 01/18/17 at 11:00; Stop 01/18/17 at 11:01 ; Status DC Albuterol/ Ipratropium (Duoneb Neb) 1 ampule Q6HR NEB PRN NEB SHORTNESS OF BREATH; Start 01/18/17 at 12:00 Midazolam HCl (Versed Inj) 2 mg STK-MED ONCE .ROUTE Last administered on 12:10; Start 01/18/17 at 12:10; Stop 01/18/17 at 12:11; Status DC Fentanyl Citrate (fentaNYL INJ) 100 mcg STK-MED ONCE .ROUTE Last administered on 01/18/17 12:10; Start 01/18/17 at 12:10; Stop 01/18/17 at 12:11; Status DC Hydrocortisone Sodium Succinate (SoluCORTEF INJ) 200 mg STK-MED ONCE .ROUTE ; Start 01/18/17 at 12:10; Stop 01/18/17 at 12:11; Status DC Heparin Sodium (Porcine) 15514 units 10,000 units STK-MED ONCE .ROUTE Last administered on 01/18/17 12:10; Start 01/18/17 at 12:10; Stop 01/18/17 at 12:11 ; Status DC Heparin Sodium/ Sodium Chloride (Heparin-NS/Pf Inj) 500 ml @ As Directed STK- MED ONCE .ROUTE Last administered on 01/18/17 12:11; Start 01/18/17 at 12:11; Stop 01/18/17 at 12:12; Status DC Diphenhydramine HCl (Benadryl Inj) 50 mg STK-MED ONCE .ROUTE Last administered on 01/18/17 12:14; Start 01/18/17 at 12:14; Stop 01/18/17 at 12:15; Status DC Miscellaneous Information 1 1 ONCE ONCE XX ; Start 01/18/17 at 12:45; Stop at 13:01; Status DC Sodium Chloride (NS 1000 ml Inj) 1,000 ml @ 100 mls/hr Q10H IV Last administered on 01/18/17 22:38; Start 01/18/17 at 12:38; Stop 01/19/17 at 00:37 ; Status DC Bacitracin (Bacitracin Oint Packet) 0.9 gm ONCE ONCE TOP ; Start 01/18/17 at 12 :45; Stop 01/18/17 at 13:01; Status DC Iohexol (OMNIPAQUE 350 INJ (Spray Pilot)) 50 ml STK-MED ONCE OTHER ; Start at 13:54; Stop 01/18/17 at 13:55; Status DC IV Flush (NS Flush) 2 ml BID IV FLUSH Last administered on 01/18/17 21:00; Start 01/18/17 at 21:00 IV Flush 2 ml 2 ml UNSCH PRN IV FLUSH FLUSH AFTER USING IV ACCESS; Start at 17:15 Papaverine HCl 60 mg/Nitroglycerin 100 mcg/Diltiazem HCl 100 mg/Sodium Chloride 100.0 ml @ 0 mls/hr [employer] IRRIGATION ; Start 01/18/17 at 17:15; Stop at 17:14 Cefazolin Sodium 500 mg/Sodium Chloride 505 ml @ 0 mls/hr [employer] IRRIGATION ; Start 01/18/17 at 17:15; Stop 01/25/17 at 17:14 Cefazolin Sodium/ Dextrose (Ancef 2 Gm Premix) 50 ml @ 150 mls/hr [employer] IV ; Start 01/18/17 at 17:15; Stop 01/25/17 at 17:14 Metoprolol Tartrate (Lopressor) 12.5 mg [employer] PO ; Start 01/18/17 at 17:15; Stop 01/25/17 at 17:14 Chlorhexidine Gluconate 1 applic 1 applic [employer] TOPICAL ; Start 01/18/17 at 17:15; Stop 01/25/17 at 17:14 Insulin Human Regular/Sodium Chloride (NovoLIN R (IV INFUSION)/NS Inj) 101 ml @ 0 mls/hr [employer] IV ; Start 01/18/17 at 17:15; Stop 01/25/17 at 17:14 A/P Assessment and Plan A/P - CAD s/p cardiac cath with three vessel disease continue aspirin, BB, losartan and statin- CT surgery consulted for CABG -hypertension; continue losartan and metoprolol- will monitor and adjust the regimen as needed -diabetes mellitus; diet-controlled- accu-check with SSI -COPD with chronic respiratory failure- oxygen dependent; continue Breo Ellipta and neb treatment -DVT prophylaxis- pending surgery Bogdan Pedro MD Jan 19, 2017 08:54
[2017-01-19] MEDS: SODIUM CHLORIDE 0.9% FLUSH 5 ML FLUSH IV FLUSH SCH ×2 (08:56→21:00)
[2017-01-19] MEDS ORDERED: GLUCAGON 1 MG/ML VIAL OTHER PRN (09:00)
[2017-01-19] MEDS ORDERED: DEXTROSE 50% IN WATER 50 ML VIAL(D50) IV PUSH PRN (09:00)
[2017-01-19] MEDS ORDERED: POTASSIUM CHLORIDE 10 MEQ CONTROLLED RELEASE TAB PO ONE (09:00)
[2017-01-19] MEDS: buPROPion HCL 150 MG SUSTAINED RELEASE TAB PO SCH ×2 (09:37→21:00)
[2017-01-19] MEDS: FLUTICASONE 100 MCG/VILANTEROL 25 MCG INHALER INH SCH (09:38)
--- NOTE | 2017-01-19 11:58 | RADRPT ---
EXAM DATE/TIME: 01/19/2017 11:25 [place] COMPARISON: CHEST SINGLE AP, January 17, 2017, 17:12. INDICATIONS : Pre-op CABG. RADIATION DOSE: 6.48 CTDIvol (mGy) MEDICAL HISTORY : Cardiovascular disease. SURGICAL HISTORY : Cholecystectomy. Hysterectomy. ENCOUNTER: Initial ACUITY: 1 day PAIN SCALE: 0/10 LOCATION: chest TECHNIQUE: Volumetric scanning of the chest was performed. Using automated exposure control and adjustment of t he mA and/or kV according to patient size, radiation dose was kept as low as reasonably achievable to obtain optimal diagnostic quality images. FINDINGS: LUNGS: There is no consolidation or pneumothorax. No concerning pulmonary nodule is visualized. Emphysema. No consolidation. Small 5 mm nodule right lower lobe laterally. PLEURAE: There is no pleural thickening or pleural effusion. MEDIASTINUM: The heart and great vessels demonstrate no acute abnormality. There is no mediastinal or hilar lymph adenopathy. Coronary artery calcification/stents. AXILLAE: Within normal limits. No lymphadenopathy. MUSCULOSKELETAL: Within normal limits for patient age. MISCELLANEOUS: The visualized upper abdominal organs demonstrate no acute abnormality. CONCLUSION: 1. Small nodule right lower lobe laterally measuring 5-[address] chest in 6 months recommende d for stability. 2. No consolidation or mass. 3. Coronary artery disease with calcifications and stents. Jayce Biswas MD on January 19, 2017 at 11:53 Board Certified Radiologist. This report was verified electronically.
[2017-01-19] MEDS: INSULIN ASPART SUPPLEMENTAL SCALE SQ SCH ×3 (12:45→21:00)
--- NOTE | 2017-01-19 13:31 | EC ---
Study Study Date:01/19/2017 STUDY CONCLUSIONS SUMMARY - Left ventricle: The cavity size was normal. Wall thickness was increased increased in a pattern of mild to moderate LVH. Systolic function was vigorous. The estimated ejection fraction was in the range of 65% to 70%. Wall motion was normal; there were no regional wall motion abnormalities. - Aortic valve: Transvalvular velocity was minimally increased. There was mild stenosis. - Pericardium, extracardiac: A trivial pericardial effusion was identified. If LV function is below 40, please consider prescribing an ACEI or ARB or document rationale for non-use. PROCEDURE DATA STUDY STATUS: Elective. Procedure: Transthoracic echocardiography. Image quality was good. Scanning was performed from the parasternal, apical, and subcostal acoustic windows. Study completion: The patient tolerated the procedure well. Transthoracic echocardiography. M-mode, complete 2D, complete spectral Doppler, and color Doppler. Patient status: Inpatient. CARDIAC ANATOMY LEFT VENTRICLE: The cavity size was normal. Wall thickness was increased increased in a pattern of mild to moderate LVH. Systolic function was vigorous. The estimated ejection fraction was in the range of 65% to 70%. Wall motion was normal; there were no regional wall motion abnormalities. AORTIC VALVE: Trileaflet; mildly thickened, mildly calcified leaflets. Doppler: Transvalvular velocity was minimally increased. There was mild stenosis. No regurgitation. Mean gradient: 5mm Hg (S). AORTA: Aortic root: The aortic root was normal in size. MITRAL VALVE: Structurally normal valve. Doppler: Transvalvular velocity was within the normal range. There was no evidence for stenosis. Trace regurgitation. Peak gradient: 3mm Hg (D). LEFT ATRIUM: The atrium was normal in size. RIGHT VENTRICLE: The cavity size was normal. Wall thickness was normal. PULMONIC VALVE: Doppler: Transvalvular velocity was within the normal range. There was no evidence for stenosis. No regurgitation. TRICUSPID VALVE: Structurally normal valve. Doppler: Transvalvular velocity was within the normal range. Trace regurgitation. PULMONARY ARTERY: The main pulmonary artery was normal-sized. Systolic pressure was within the normal range. RIGHT ATRIUM: The atrium was normal in size. PERICARDIUM: A trivial pericardial effusion was identified. SYSTEMIC VEINS: Inferior vena cava: The vessel was normal in size. BASIC MEASUREMENTS ADULT Normal Left ventricle LV internal dimension, ED, chordal level, 46.3 mm 43-52 PLAX LV internal dimension, ES, chordal level, 35.5 mm 23-38 PLAX Fractional shortening, chordal level, PLAX *23 % >29 LV posterior wall thickness, ED 7.81 mm IVS/LVPW ratio, ED *1.77 <1.3 Ventricular septum Septal thickness, ED 13.8 mm Aortic valve Leaflet separation 19 mm 15-26 Left atrium Anterior-posterior dimension 32 mm Right ventricle RV internal dimension, ED, PLAX 24.9 mm 19-38 BASIC MEASUREMENTS ADULT Normal Aortic valve Leaflet separation 19 mm 15-26 Aorta Root diameter, ED 31 mm 20-37 DOPPLER MEASUREMENTS ADULT Normal Main pulmonary artery Pressure, S 20 mm Hg =30 Aortic valve Peak velocity, S 155 cm/s Mean velocity, S 111 cm/s VTI, S 40.5 cm Mean gradient, S 5 mm Hg Mitral valve Peak E-wave velocity 93.3 cm/s Peak A-wave velocity 89.8 cm/s Peak gradient, D 3 mm Hg Peak E/A ratio 1 Tricuspid valve Regurgitant peak velocity 151 cm/s Peak RV-RA gradient, S 9 mm Hg Maximal regurgitant velocity 151 cm/s Systemic veins Estimated CVP 10 mm Hg Right ventricle RV pressure, S 20 mm Hg <30 LEGEND: Mean values are shown as u=mean value. Asterisk (*) fragoso values outside specified normal range. Prepared and signed by Osmin De La Cruz [id number]
--- NOTE | 2017-01-19 15:18 | PD.CAR.PN ---
CVT Progress Note Subjective/Hospital Course: 66-year-old female is complaining of chest pain. She says that last night she started having some pain in the left posterior shoulder blade. The pain is been fairly persistent and today it has moved to the front. There is no history of injury. She does have a history of angina. pmh: CAD/ [place] prior stent x 2 LAD , PL in 2006 [facility] in [place], severe COPD ( home 02 3L ) anxiety, HTN, HLP , prior tobacco abuse ( smoked for approx 40 years 3pk / day ) cath report : Lmain 30%, prox LAD 90%, Cx 75%, OM 75%, RCA 95% Echo : EF 65% consulted for CABG, PFT showed FEV1 0.50, 23% predicted ABG showed compensated chronic resp acidosis C02 62 CT chest noted Objective: GENERAL: SKIN: Warm and dry. HEAD: Normocephalic. EYES: No scleral icterus. No injection or drainage. NECK: Supple, trachea midline. No JVD or lymphadenopathy. CARDIOVASCULAR: Regular rate and rhythm without murmurs, gallops, or rubs. RESPIRATORY: Breath sounds very diminished in bases equal bilaterally. No accessory muscle use. GASTROINTESTINAL: Abdomen soft, non-tender, nondistended. MUSCULOSKELETAL: No cyanosis, or edema. BACK: Nontender without obvious deformity. No CVA tenderness. Vital Signs Date Time Temp Pulse Resp B/P Pulse Ox O2 Delivery O2 Flow Rate FiO2 01/19/17 09:10 97 Nasal Cannula 3.00 01/19/17 06:00 84 01/19/17 05:00 60 01/19/17 04:07 96 Nasal Cannula 2.00 01/19/17 04:04 97.6 66 129/63 96 01/19/17 04:00 62 01/19/17 03:00 65 01/19/17 02:00 64 01/19/17 01:00 72 01/19/17 00:00 72 01/19/17 00:00 98.1 79 142/83 95 01/18/17 23:00 73 01/18/17 22:00 84 01/18/17 21:00 84 01/18/17 20:00 86 01/18/17 20:00 98.5 84 129/82 95 01/18/17 19:00 94 01/18/17 18:00 75 01/18/17 17:41 88.6 84 18 128/67 95 01/18/17 17:00 73 01/18/17 16:00 71 Labs: Laboratory Tests Test 01/19/17 01/19/17 01/19/17 01/19/17 05:42 05:57 07:53 09:13 Blood Gas Puncture Site RT BRACHIAL Blood Gas Patient Temperature 98.6 Blood Gas HCO3 33 mmol/L (22-26) Blood Gas Base Excess 7.2 mmol/L (-2-2) Blood Gas Oxygen Saturation 95 % (90-100) Arterial Blood pH 7.35 (7.380-7.420) Arterial Blood Partial 62 mmHg (38-42) Pressure CO2 Arterial Blood Partial 94 mmHg Pressure O2 (61-120) Arterial Blood Oxygen Content 17.8 Vol % (12.0-20.0) Arterial Blood 1.2 % (0-4) Carboxyhemoglobin Arterial Blood Methemoglobin 1.3 % (0-2) Blood Gas Hemoglobin 13.4 G/DL (12.0-16.0) Oxygen Delivery Device NASAL CANNULA Blood Gas Liter Flow 2 L/M White Blood Count 7.4 TH/MM3 (4.0-11.0) Red Blood Count 4.24 MIL/MM3 (4.00-5.30) Hemoglobin 13.0 GM/DL (11.6-15.3) Hematocrit 39.1 % (35.0-46.0) Mean Corpuscular Volume 92.3 FL (80.0-100.0) Mean Corpuscular Hemoglobin 30.6 PG (27.0-34.0) Mean Corpuscular Hemoglobin 33.1 % Concent (32.0-36.0) Red Cell Distribution Width 13.2 % (11.6-17.2) Platelet Count 163 TH/MM3 (150-450) Mean Platelet Volume 8.7 FL (7.0-11.0) Neutrophils (%) (Auto) 68.0 % (16.0-70.0) Lymphocytes (%) (Auto) 20.0 % (9.0-44.0) Monocytes (%) (Auto) 9.3 % (0.0-8.0) Eosinophils (%) (Auto) 2.1 % (0.0-4.0) Basophils (%) (Auto) 0.6 % (0.0-2.0) Neutrophils # (Auto) 5.0 TH/MM3 (1.8-7.7) Lymphocytes # (Auto) 1.5 TH/MM3 (1.0-4.8) Monocytes # (Auto) 0.7 TH/MM3 (0-0.9) Eosinophils # (Auto) 0.2 TH/MM3 (0-0.4) Basophils # (Auto) 0.0 TH/MM3 (0-0.2) CBC Comment DIFF FINAL Differential Comment Sodium Level 138 MEQ/L (136-145) Potassium Level 3.4 MEQ/L (3.5-5.1) Chloride Level 96 MEQ/L (98-107) Carbon Dioxide Level 34.7 MEQ/L (21.0-32.0) Anion Gap 7 MEQ/L (5-15) Blood Urea Nitrogen 14 MG/DL (7-18) Creatinine 0.90 MG/DL (0.50-1.00) Estimat Glomerular Filtration 63 ML/MIN (>89) Rate Random Glucose 151 MG/DL (74-106) Calcium Level 8.9 MG/DL (8.5-10.1) Blood Type B NEGATIVE B NEGATIVE Antibody Screen NEGATIVE Crossmatch Leukocyte-Reduced Red Blood Cells Blood Bank Comment Nasal Screen MRSA (PCR) NEGATIVE (NEGATIVE) Result Diagram: 01/19/17 0557 01/19/17 0557 (1) Coronary artery disease Plan: pt very high risk for any cardio vascular bypass surgery at this time due to FEV1 0.50/ predicted 23% poor lung function , chronic hypoxic resp failure requiring continuous [address] Taylor will speak with pt regarding possible high risk PCI procedure (2) Unstable angina (3) Hypoxemic respiratory failure, chronic (4) COPD, severe Problem Qualifiers (1) Coronary artery disease: Qualified Code: I25.110 - Coronary artery disease with unstable angina pectoris , unspecified vessel or lesion type, unspecified whether [place] or transplanted heart Marcella Ingram Jan 19, 2017 15:18
[2017-01-19 15:54] LABS: HEMOGLOBIN A1a 1.1 %; HEMOGLOBIN A1b 2.6 %; HEMOGLOBIN Ao 80.7 %; HEMOGLOBIN LA1C 2.3 %; HEMOGLOBIN P3 4.1 %
[2017-01-19] MEDS: ATORVASTATIN 40 MG TAB PO SCH (21:54)
[2017-01-19] MEDS: NITROGLYCERIN 0.4 MG SL 25 TABS/BTL SL PRN (21:55)
[2017-01-19] MEDS: ACETAMINOPHEN/HYDROcodone 325 MG/5 MG TAB PO PRN (21:56)
[2017-01-20] VITALS (24 sets, daily range): BP systolic 92–136; BP diastolic 52–73; PULSE 54–92; RESP 16–19; TEMP 97.4–97.9; O2SAT 94–100
[2017-01-20] MEDS: NITROGLYCERIN 2% OINT 1 GM PACKET TOP SCH ×2 (06:00)
[2017-01-20] MEDS: INSULIN ASPART SUPPLEMENTAL SCALE SQ SCH ×4 (06:07→21:17)
[2017-01-20] MEDS ORDERED: MORPHINE SULFATE 4 MG/ML INJ IV PUSH PRN (07:45)
--- NOTE | 2017-01-20 07:45 | HHI.PR ---
Subjective Remarks in no acute distress. still with some chest pain. no nausea or dizziness. d/w the RN and no acute issues over night. Objective Vitals Vital Signs Date Time Temp Pulse Resp B/P Pulse Ox O2 Delivery O2 Flow Rate FiO2 01/20/17 06:00 60 01/20/17 05:00 57 01/20/17 04:00 60 01/20/17 03:00 97.9 92 19 136/52 100 01/20/17 03:00 71 01/20/17 02:00 54 01/20/17 01:00 66 01/20/17 00:00 66 01/19/17 23:00 98.0 68 20 113/69 96 01/19/17 23:00 68 01/19/17 22:00 76 01/19/17 21:00 72 01/19/17 20:00 70 01/19/17 19:00 73 01/19/17 19:00 98.1 70 19 156/75 96 01/19/17 17:23 97 Nasal Cannula 3.00 01/19/17 16:00 98.4 78 18 100/51 95 01/19/17 11:25 98.6 66 18 112/86 99 01/19/17 09:10 97 Nasal Cannula 3.00 01/19/17 08:30 98.4 68 18 149/84 96 01/19/17 08:30 66 I/O 01/19/17 01/19/17 01/19/17 01/20/17 01/20/17 01/20/17 07:00 15:00 23:00 07:00 15:00 23:00 Intake Total 1240 ml 960 ml 540 ml Output Total 720 ml Balance 1240 ml 960 ml -180 ml Intake Oral 240 ml 960 ml 540 ml IV Total 1000 ml Output Urine Total 720 ml # Voids 3 4 # Bowel Movements 0 Result Diagram: 01/19/17 0557 01/19/17 0557 Imaging Last Impressions Lower Extremity Ultrasound 01/18/17 0000 Signed Impressions: Service Date/Time: Wednesday, January 18, 2017 19:28 - CONCLUSION: No evidence of DVT. Superficial venous system is patent with measurements given above. Herbert Pope MD Chest CT 01/18/17 0000 Signed Impressions: Service Date/Time: Thursday, January 19, 2017 11:25 - CONCLUSION: 1. Small nodule right lower lobe laterally measuring 5-[address] chest in 6 months recommended for stability. 2. No consolidation or mass. 3. Coronary artery disease with calcifications and stents. Jayce Biswas MD Carotid Artery Ultrasound 01/18/17 0000 Signed Impressions: Service Date/Time: Wednesday, January 18, 2017 18:47 - CONCLUSION: Bilateral calcified and non-calcified carotid plaques without sonographic or Doppler evidence of significant stenosis. Antegrade flow both vertebral arteries. Herbert Pope MD Chest X-Ray 01/17/17 1648 Signed Impressions: Service Date/Time: Tuesday, January 17, 2017 17:12 - CONCLUSION: Mild increased density right base suggesting early airspace disease. Shon Knowles MD FACR Objective Remarks GENERAL: This is a well-nourished, well-developed patient, in no apparent distress. CARDIOVASCULAR: Regular rate and regular rhythm without murmurs, gallops, or rubs. RESPIRATORY: Clear to auscultation. Breath sounds equal bilaterally. No wheezes , rales, or rhonchi. GASTROINTESTINAL: Abdomen soft, non-tender, nondistended. Normal, active bowel sounds MUSCULOSKELETAL: Extremities without clubbing, cyanosis, or edema. NEURO: Alert & Oriented x4 to person, place, time, situation. Moves all ext x4 Procedures cardiac cath. Medications and IVs Current Medications Morphine Sulfate (Morphine Inj) 4 mg ONCE ONCE IV PUSH Last administered on 17:30; Start 01/17/17 at 17:00; Stop 01/17/17 at 17:01; Status DC Nitroglycerin (Nitroglycerin 2% Oint) 1 inch ONCE ONCE TOP Last administered on 01/17/17 17:28; Start 01/17/17 at 17:00; Stop 01/17/17 at 17:01; Status DC IV Flush (NS Flush) 2 ml UNSCH PRN IVF FLUSH AFTER USING IV ACCESS; Start 01/17 at 17:00; Stop 01/17/17 at 18:18; Status DC Ondansetron HCl (Zofran Inj) 4 mg ONCE ONCE IV PUSH Last administered on 17:28; Start 01/17/17 at 17:00; Stop 01/17/17 at 17:01; Status DC IV Flush (NS Flush) 2 ml UNSCH PRN IVF FLUSH AFTER USING IV ACCESS Last administered on 01/18/17 00:13; Start 01/17/17 at 18:15; Stop 01/18/17 at 17:35 ; Status DC IV Flush (NS Flush) 2 ml BID IVF Last administered on 01/18/17 10:21; Start at 21:00; Stop 01/18/17 at 17:35; Status DC Ondansetron HCl (Zofran Inj) 4 mg Q6H PRN IV NAUSEA Last administered on 21:44; Start 01/17/17 at 18:15 Nitroglycerin (Nitroglycerin 2% Oint) 1 inch Q6HR TOP Last administered on 01/18 05:37; Start 01/18/17 at 00:00; Stop 01/18/17 at 08:11; Status DC Nitroglycerin (Nitrostat Sl) 0.4 mg Q5M PRN SL X 3 doses for chest pain Last administered on 01/19/17 21:55; Start 01/17/17 at 21:30 Acetaminophen (Tylenol) 650 mg Q6H PRN PO PAIN SCALE 1 TO 2; Start 01/17/17 at 21:30 Acetaminophen/ Hydrocodone Bitart ([place] 5-325 Mg) 1 tab Q4H PRN PO PAIN SCALE 3 TO 5 Last administered on 01/19/17 21:56; Start 01/17/17 at 21:30 Acetaminophen/ Hydrocodone Bitart ([place] 7.5-325 Mg) 1 tab Q4H PRN PO PAIN SCALE 6 TO 10 Last administered on 01/17/17 21:58; Start 01/17/17 at 21:30 Morphine Sulfate (Morphine Inj) 2 mg Q3H PRN IV BREAKTHROUGH PAIN; Start at 21:30; Stop 01/18/17 at 08:13; Status DC Naloxone HCl (Narcan Inj) 0.4 mg UNSCH PRN IV SEE LABEL COMMENTS; Start at 21:30 Atorvastatin Calcium (Lipitor) 40 mg HS PO Last administered on 01/19/17 21:54 ; Start 01/18/17 at 21:00 Bupropion HCl (Wellbutrin Xl 24 Hr) 300 mg DAILY PO ; Start 01/18/17 at 09:00; Stop 01/19/17 at 09:26; Status DC Fluticasone/ Vilanterol (Breo Ellipta 100-25 Inh) 1 puff DAILY INH Last administered on 01/19/17 09:38; Start 01/18/17 at 10:00 Gabapentin (Neurontin) 100 mg BID PO Last administered on 01/19/17 21:56; Start 01/18/17 at 09:00 Metoprolol Succinate (Toprol Xl) 25 mg DAILY PO Last administered on 01/19/17 08:55; Start 01/18/17 at 09:00 Non-Formulary Medication 1 tab DAILY PO BPM; Start 01/18/17 at 09:00; Status UNV Nitroglycerin (Nitroglycerin 2% Oint) 0.5 inch Q6HR TOP Last administered on 06:00; Start 01/18/17 at 12:00 Aspirin (Ecotrin Ec) 325 mg DAILY PO Last administered on 01/19/17 08:55; Start 01/18/17 at 09:00 Losartan Potassium (Cozaar) 50 mg DAILY PO Last administered on 01/19/17 08:55 ; Start 01/18/17 at 09:00 Hydrochlorothiazide (Microzide) 12.5 mg DAILY PO Last administered on 10:21; Start 01/18/17 at 09:00; Stop 01/18/17 at 10:40; Status DC Hydrocortisone Sodium Succinate (SoluCORTEF INJ) 200 mg ONCE ONCE IV Last administered on 01/18/17 11:00; Start 01/18/17 at 11:00; Stop 01/18/17 at 11:01 ; Status DC Albuterol/ Ipratropium (Duoneb Neb) 1 ampule Q6HR NEB PRN NEB SHORTNESS OF BREATH; Start 01/18/17 at 12:00 Midazolam HCl (Versed Inj) 2 mg STK-MED ONCE .ROUTE Last administered on 12:10; Start 01/18/17 at 12:10; Stop 01/18/17 at 12:11; Status DC Fentanyl Citrate (fentaNYL INJ) 100 mcg STK-MED ONCE .ROUTE Last administered on 01/18/17 12:10; Start 01/18/17 at 12:10; Stop 01/18/17 at 12:11; Status DC Hydrocortisone Sodium Succinate (SoluCORTEF INJ) 200 mg STK-MED ONCE .ROUTE ; Start 01/18/17 at 12:10; Stop 01/18/17 at 12:11; Status DC Heparin Sodium (Porcine) 43026 units 10,000 units STK-MED ONCE .ROUTE Last administered on 01/18/17 12:10; Start 01/18/17 at 12:10; Stop 01/18/17 at 12:11 ; Status DC Heparin Sodium/ Sodium Chloride (Heparin-NS/Pf Inj) 500 ml @ As Directed STK- MED ONCE .ROUTE Last administered on 01/18/17 12:11; Start 01/18/17 at 12:11; Stop 01/18/17 at 12:12; Status DC Diphenhydramine HCl (Benadryl Inj) 50 mg STK-MED ONCE .ROUTE Last administered on 01/18/17 12:14; Start 01/18/17 at 12:14; Stop 01/18/17 at 12:15; Status DC Miscellaneous Information 1 1 ONCE ONCE XX ; Start 01/18/17 at 12:45; Stop at 13:01; Status DC Sodium Chloride (NS 1000 ml Inj) 1,000 ml @ 100 mls/hr Q10H IV Last administered on 01/18/17 22:38; Start 01/18/17 at 12:38; Stop 01/19/17 at 00:37 ; Status DC Bacitracin (Bacitracin Oint Packet) 0.9 gm ONCE ONCE TOP ; Start 01/18/17 at 12 :45; Stop 01/18/17 at 13:01; Status DC Iohexol (OMNIPAQUE 350 INJ (Dry Wall Installer)) 50 ml STK-MED ONCE OTHER ; Start at 13:54; Stop 01/18/17 at 13:55; Status DC IV Flush (NS Flush) 2 ml BID IV FLUSH Last administered on 01/19/17 08:56; Start 01/18/17 at 21:00 IV Flush 2 ml 2 ml UNSCH PRN IV FLUSH FLUSH AFTER USING IV ACCESS; Start at 17:15 Papaverine HCl 60 mg/Nitroglycerin 100 mcg/Diltiazem HCl 100 mg/Sodium Chloride 100.0 ml @ 0 mls/hr SALES ESTIMATOR IRRIGATION ; Start 01/18/17 at 17:15; Stop at 17:14 Cefazolin Sodium 500 mg/Sodium Chloride 505 ml @ 0 mls/hr SALES ESTIMATOR IRRIGATION ; Start 01/18/17 at 17:15; Stop 01/25/17 at 17:14 Cefazolin Sodium/ Dextrose (Ancef 2 Gm Premix) 50 ml @ 150 mls/hr SALES ESTIMATOR IV ; Start 01/18/17 at 17:15; Stop 01/25/17 at 17:14 Metoprolol Tartrate (Lopressor) 12.5 mg SALES ESTIMATOR PO ; Start 01/18/17 at 17:15; Stop 01/25/17 at 17:14 Chlorhexidine Gluconate 1 applic 1 applic SALES ESTIMATOR TOPICAL ; Start 01/18/17 at 17:15; Stop 01/25/17 at 17:14 Insulin Human Regular/Sodium Chloride (NovoLIN R (IV INFUSION)/NS Inj) 101 ml @ 0 mls/hr SALES ESTIMATOR IV ; Start 01/18/17 at 17:15; Stop 01/25/17 at 17:14 Dextrose (D50w (Vial) Inj) 25 ml UNSCH PRN IV PUSH HYPOGLYCEMIA-SEE COMMENTS; Start 01/19/17 at 09:00 Glucagon (Glucagon Inj) 1 mg UNSCH PRN OTHER HYPOGLYCEMIA-SEE COMMENTS; Start 01/19/17 at 09:00 Insulin Aspart (NovoLOG SUPPLEMENTAL SCALE) 1 ACHS SLIDING SCALE SQ Last administered on 01/19/17 12:45; Start 01/19/17 at 11:00 Potassium Chloride (KCl) 30 meq ONCE ONCE PO Last administered on 01/19/17 09: 38; Start 01/19/17 at 09:00; Stop 01/19/17 at 09:06; Status DC Bupropion HCl (Wellbutrin Sr) 150 mg BID PO Last administered on 01/19/17 09:37 ; Start 01/19/17 at 09:30 A/P Assessment and Plan A/P - CAD s/p cardiac cath with three vessel disease continue aspirin, BB, losartan and statin- CT surgery consulted for CABG; however due to poor lung function, CABG was cancelled; awaiting cardiology follow-up for further recommendations. -hypertension; continue losartan and metoprolol- will monitor and adjust the regimen as needed -diabetes mellitus; diet-controlled- accu-check with SSI -COPD with chronic respiratory failure- oxygen dependent; continue Breo Ellipta and neb treatment -right lung nodule; f/u as outpatient. -DVT prophylaxis- pending cardiology follow-up Discharge Planning awaiting cardiology recommendations. Bogdan Pedro MD Jan 20, 2017 07:45
[2017-01-20] MEDS: ACETAMINOPHEN/HYDROcodone 325 MG/5 MG TAB PO PRN ×2 (08:01→13:48)
[2017-01-20] MEDS: FLUTICASONE 100 MCG/VILANTEROL 25 MCG INHALER INH SCH (08:02)
[2017-01-20] MEDS: SODIUM CHLORIDE 0.9% FLUSH 5 ML FLUSH IV FLUSH SCH ×2 (08:03→21:17)
[2017-01-20] MEDS: GABAPENTIN 100 MG CAP PO SCH ×2 (08:21→21:13)
[2017-01-20] MEDS: LOSARTAN 50 MG TAB PO SCH (08:22)
[2017-01-20] MEDS: buPROPion HCL 150 MG SUSTAINED RELEASE TAB PO SCH ×2 (08:22→21:00)
[2017-01-20] MEDS ORDERED: SODIUM CHLOR 0.9% 1000 ML INJ 1,000 ML IV SCH (08:23)
--- NOTE | 2017-01-20 08:29 | PD.CARD.PN ---
Subjective Subjective Remarks still on/off CP. worse with walking to bathroom. sitting up in chair now. Objective Medications Active Medications Aspirin (Ecotrin Ec) 81 mg DAILY PO; Start 01/20/17 at 09:00; Status UNV Bupropion HCl (Wellbutrin Sr) 150 mg BID PO Last administered on 01/19/17 09:37 ; Admin Dose 150 MG; Start 01/19/17 at 09:30 Clopidogrel Bisulfate (Plavix) 75 mg DAILY PO; Start 01/20/17 at 09:00; Status UNV Clopidogrel Bisulfate (Plavix) 600 mg ONCE ONCE PO; Start 01/20/17 at 08:30; Stop 01/20/17 at 08:31; Status UNV Dextrose (D50w (Vial) Inj) 25 ml UNSCH PRN IV PUSH; Start 01/19/17 at 09:00 Glucagon (Glucagon Inj) 1 mg UNSCH PRN OTHER; Start 01/19/17 at 09:00 Isosorbide Mononitrate (Imdur) 60 mg DAILY@07 PO; Start 01/20/17 at 08:30; Status UNV Morphine Sulfate (Morphine Inj) 2 mg Q4HR PRN IV PUSH; Start 01/20/17 at 07:45 Potassium Chloride (KCl) 30 meq ONCE ONCE PO Last administered on 01/19/17 09: 38; Admin Dose 30 MEQ; Start 01/19/17 at 09:00; Stop 01/19/17 at 09:06; Status DC Vital Signs / I&O Vital Signs Date Time Temp Pulse Resp B/P Pulse Ox O2 Delivery O2 Flow Rate FiO2 01/20/17 08:17 68 01/20/17 07:30 97.6 67 18 112/73 95 01/20/17 07:30 78 01/20/17 06:00 60 01/20/17 05:00 57 01/20/17 04:00 60 01/20/17 03:00 97.9 92 19 136/52 100 01/20/17 03:00 71 01/20/17 02:00 54 01/20/17 01:00 66 01/20/17 00:00 66 01/19/17 23:00 98.0 68 20 113/69 96 01/19/17 23:00 68 01/19/17 22:00 76 01/19/17 21:00 72 01/19/17 20:00 70 01/19/17 19:00 73 01/19/17 19:00 98.1 70 19 156/75 96 01/19/17 17:23 97 Nasal Cannula 3.00 01/19/17 16:00 98.4 78 18 100/51 95 01/19/17 11:25 98.6 66 18 112/86 99 01/19/17 09:10 97 Nasal Cannula 3.00 01/19/17 08:30 98.4 68 18 149/84 96 01/19/17 08:30 66 I/O 01/19/17 01/19/17 01/19/17 01/20/17 01/20/17 01/20/17 07:00 15:00 23:00 07:00 15:00 23:00 Intake Total 1240 ml 960 ml 540 ml Output Total 720 ml Balance 1240 ml 960 ml -180 ml Intake Oral 240 ml 960 ml 540 ml IV Total 1000 ml Output Urine Total 720 ml # Voids 3 4 # Bowel Movements 0 Physical Exam GENERAL: SKIN: Warm and dry. HEAD: Normocephalic. EYES: No scleral icterus. No injection or drainage. NECK: Supple, trachea midline. No JVD or lymphadenopathy. CARDIOVASCULAR: Regular rate and rhythm without murmurs, gallops, or rubs. RESPIRATORY: Breath sounds equal bilaterally. No accessory muscle use. GASTROINTESTINAL: Abdomen soft, non-tender, nondistended. MUSCULOSKELETAL: No cyanosis, or edema. BACK: Nontender without obvious deformity. No CVA tenderness. Laboratory Laboratory Tests Test 01/19/17 09:13 Blood Type B NEGATIVE Imaging Last Impressions Lower Extremity Ultrasound 01/18/17 0000 Signed Impressions: Service Date/Time: Wednesday, January 18, 2017 19:28 - CONCLUSION: No evidence of DVT. Superficial venous system is patent with measurements given above. Herbert Pope MD Chest CT 01/18/17 0000 Signed Impressions: Service Date/Time: Thursday, January 19, 2017 11:25 - CONCLUSION: 1. Small nodule right lower lobe laterally measuring 5-[address] chest in 6 months recommended for stability. 2. No consolidation or mass. 3. Coronary artery disease with calcifications and stents. Jayce Biswas MD Carotid Artery Ultrasound 01/18/17 0000 Signed Impressions: Service Date/Time: Wednesday, January 18, 2017 18:47 - CONCLUSION: Bilateral calcified and non-calcified carotid plaques without sonographic or Doppler evidence of significant stenosis. Antegrade flow both vertebral arteries. Herbert Pope MD Chest X-Ray 01/17/17 1648 Signed Impressions: Service Date/Time: Tuesday, January 17, 2017 17:12 - CONCLUSION: Mild increased density right base suggesting early airspace disease. Shon Konwles MD FACR Assessment and Plan Problem List: (1) Coronary artery disease (2) Unstable angina (3) Hypoxemic respiratory failure, chronic (4) COPD, severe Assessment and Plan unstable angina - severe [place] 3 Vz CAD. Not good surgical candidate due to poor resp function. FEV1 0.5 discussed options, given progressive and continued symptoms, she is agreeable to high risk PCI. EF normal. plavix load. long acting nitrate. BB. medical regimen optimized. NPO p MN gentle hydration for anticipated contrast dye load. Problem Qualifiers (1) Coronary artery disease: Qualified Code: I25.110 - Coronary artery disease with unstable angina pectoris , unspecified vessel or lesion type, unspecified whether [place] or transplanted heart Osmin De La Cruz MD Jan 20, 2017 08:29
[2017-01-20] MEDS ORDERED: CLOPIDOGREL 300 MG TAB PO ONE (08:30)
[2017-01-20] MEDS ORDERED: CLOPIDOGREL 75 MG TAB PO SCH (09:00)
[2017-01-20] MEDS: ISOSORBIDE MONONITRATE 60 MG TAB PO SCH (09:51)
[2017-01-20] MEDS: CARVEDILOL 3.125 MG TAB PO SCH ×2 (09:52→21:00)
[2017-01-20] MEDS: ASPIRIN EC 81 MG TABEC PO SCH (09:52)
[2017-01-20] MEDS: ATORVASTATIN 40 MG TAB PO SCH (21:15)
[2017-01-20] MEDS: ACETAMINOPHEN/HYDROcodone 325 MG/7.5 MG TAB PO PRN (21:16)
[2017-01-21] VITALS (19 sets, daily range): BP systolic 110–149; BP diastolic 50–91; PULSE 54–98; RESP 16–20; TEMP 97.8–98.1; O2SAT 95–97
[2017-01-21] MEDS: ISOSORBIDE MONONITRATE 60 MG TAB PO SCH (05:37)
[2017-01-21] MEDS: INSULIN ASPART SUPPLEMENTAL SCALE SQ SCH ×4 (05:37→20:34)
--- NOTE | 2017-01-21 08:04 | PD.CARD.PN ---
Subjective Subjective Remarks continue with chest pain Objective Vital Signs / I&O Vital Signs Date Time Temp Pulse Resp B/P Pulse Ox O2 Delivery O2 Flow Rate FiO2 01/21/17 06:00 58 01/21/17 05:00 54 01/21/17 04:00 98.0 62 16 113/50 96 01/21/17 04:00 63 01/21/17 03:00 56 01/21/17 02:00 66 01/21/17 01:00 62 01/21/17 00:00 75 01/21/17 00:00 97.8 67 16 115/73 96 01/20/17 23:00 68 01/20/17 22:00 68 01/20/17 21:00 76 01/20/17 20:00 97.5 75 16 110/71 94 01/20/17 20:00 69 01/20/17 19:59 97 Nasal Cannula 2.00 01/20/17 18:07 72 01/20/17 17:07 69 01/20/17 16:54 74 01/20/17 15:27 18 01/20/17 15:23 88 01/20/17 15:23 74 01/20/17 15:23 97.4 74 18 92/58 98 01/20/17 14:09 77 01/20/17 13:44 68 01/20/17 12:00 64 01/20/17 11:28 97.9 77 18 117/54 94 01/20/17 11:28 76 01/20/17 10:23 74 01/20/17 09:00 67 01/20/17 08:17 68 I/O 01/20/17 01/20/17 01/20/17 01/21/17 01/21/17 01/21/17 07:00 15:00 23:00 07:00 15:00 23:00 Intake Total 540 ml 640 ml 980 ml Output Total 720 ml Balance -180 ml 640 ml 980 ml Intake Oral 540 ml 640 ml 480 ml IV Total 500 ml Output Urine Total 720 ml # Voids 4 # Bowel Movements 0 0 Physical Exam GENERAL: Well-nourished, well-developed patient in no apparent distress. NECK: No JVD. No carotid bruit. CARDIOVASCULAR: Regular rate and rhythm. S1/S2 no murmur, rub, or gallop. RESPIRATORY: No accessory muscle use. Clear to auscultation. Breath sounds equal bilaterally. GASTROINTESTINAL: Abdomen soft, non-tender, nondistended. MUSCULOSKELETAL: Extremities without clubbing, cyanosis, or edema.right radial pulse 2+ Assessment and Plan Problem List: (1) Coronary artery disease (2) Unstable angina (3) Hypoxemic respiratory failure, chronic (4) COPD, severe Assessment and Plan [facility] today high risk PCI further recommendations will depend on that outcome. P2Y12 pending Problem Qualifiers (1) Coronary artery disease: Qualified Code: I25.110 - Coronary artery disease with unstable angina pectoris , unspecified vessel or lesion type, unspecified whether cheesh-na or transplanted heart Jefferson Gordon Jan 21, 2017 08:04
[2017-01-21 08:08] LABS: P2Y12 REACTION UNITS (PRU) 228 PRU (194-418)
--- NOTE | 2017-01-21 08:34 | HHI.PR ---
Subjective Remarks resting comfortably with no distress. denies chest pain at this time. awaiting cardiac cath. Objective Vitals Vital Signs Date Time Temp Pulse Resp B/P Pulse Ox O2 Delivery O2 Flow Rate FiO2 01/21/17 06:00 58 01/21/17 05:00 54 01/21/17 04:00 98.0 62 16 113/50 96 01/21/17 04:00 63 01/21/17 03:00 56 01/21/17 02:00 66 01/21/17 01:00 62 01/21/17 00:00 75 01/21/17 00:00 97.8 67 16 115/73 96 01/20/17 23:00 68 01/20/17 22:00 68 01/20/17 21:00 76 01/20/17 20:00 97.5 75 16 110/71 94 01/20/17 20:00 69 01/20/17 19:59 97 Nasal Cannula 2.00 01/20/17 18:07 72 01/20/17 17:07 69 01/20/17 16:54 74 01/20/17 15:27 18 01/20/17 15:23 88 01/20/17 15:23 74 01/20/17 15:23 97.4 74 18 92/58 98 01/20/17 14:09 77 01/20/17 13:44 68 01/20/17 12:00 64 01/20/17 11:28 97.9 77 18 117/54 94 01/20/17 11:28 76 01/20/17 10:23 74 01/20/17 09:00 67 I/O 01/20/17 01/20/17 01/20/17 01/21/17 01/21/17 01/21/17 07:00 15:00 23:00 07:00 15:00 23:00 Intake Total 540 ml 640 ml 980 ml Output Total 720 ml Balance -180 ml 640 ml 980 ml Intake Oral 540 ml 640 ml 480 ml IV Total 500 ml Output Urine Total 720 ml # Voids 4 # Bowel Movements 0 0 Result Diagram: 01/19/17 0557 01/19/17 0557 Imaging Last Impressions Lower Extremity Ultrasound 01/18/17 0000 Signed Impressions: Service Date/Time: Wednesday, January 18, 2017 19:28 - CONCLUSION: No evidence of DVT. Superficial venous system is patent with measurements given above. Herbert Pope MD Chest CT 01/18/17 0000 Signed Impressions: Service Date/Time: Thursday, January 19, 2017 11:25 - CONCLUSION: 1. Small nodule right lower lobe laterally measuring 5-[address] chest in 6 months recommended for stability. 2. No consolidation or mass. 3. Coronary artery disease with calcifications and stents. Jayce Biswas MD Carotid Artery Ultrasound 01/18/17 0000 Signed Impressions: Service Date/Time: Wednesday, January 18, 2017 18:47 - CONCLUSION: Bilateral calcified and non-calcified carotid plaques without sonographic or Doppler evidence of significant stenosis. Antegrade flow both vertebral arteries. Herbert Pope MD Chest X-Ray 01/17/17 1648 Signed Impressions: Service Date/Time: Tuesday, January 17, 2017 17:12 - CONCLUSION: Mild increased density right base suggesting early airspace disease. Shon Knowles MD FACR Objective Remarks GENERAL: This is a well-nourished, well-developed patient, in no apparent distress. CARDIOVASCULAR: Regular rate and regular rhythm without murmurs, gallops, or rubs. RESPIRATORY: Clear to auscultation. Breath sounds equal bilaterally. No wheezes , rales, or rhonchi. GASTROINTESTINAL: Abdomen soft, non-tender, nondistended. Normal, active bowel sounds MUSCULOSKELETAL: Extremities without clubbing, cyanosis, or edema. NEURO: Alert & Oriented x4 to person, place, time, situation. Moves all ext x4 Procedures cardiac cath. Medications and IVs Current Medications Morphine Sulfate (Morphine Inj) 4 mg ONCE ONCE IV PUSH Last administered on 17:30; Start 01/17/17 at 17:00; Stop 01/17/17 at 17:01; Status DC Nitroglycerin (Nitroglycerin 2% Oint) 1 inch ONCE ONCE TOP Last administered on 01/17/17 17:28; Start 01/17/17 at 17:00; Stop 01/17/17 at 17:01; Status DC IV Flush (NS Flush) 2 ml UNSCH PRN IVF FLUSH AFTER USING IV ACCESS; Start 01/17 at 17:00; Stop 01/17/17 at 18:18; Status DC Ondansetron HCl (Zofran Inj) 4 mg ONCE ONCE IV PUSH Last administered on 17:28; Start 01/17/17 at 17:00; Stop 01/17/17 at 17:01; Status DC IV Flush (NS Flush) 2 ml UNSCH PRN IVF FLUSH AFTER USING IV ACCESS Last administered on 01/18/17 00:13; Start 01/17/17 at 18:15; Stop 01/18/17 at 17:35 ; Status DC IV Flush (NS Flush) 2 ml BID IVF Last administered on 01/18/17 10:21; Start at 21:00; Stop 01/18/17 at 17:35; Status DC Ondansetron HCl (Zofran Inj) 4 mg Q6H PRN IV NAUSEA Last administered on 21:44; Start 01/17/17 at 18:15 Nitroglycerin (Nitroglycerin 2% Oint) 1 inch Q6HR TOP Last administered on 01/18 05:37; Start 01/18/17 at 00:00; Stop 01/18/17 at 08:11; Status DC Nitroglycerin (Nitrostat Sl) 0.4 mg Q5M PRN SL X 3 doses for chest pain Last administered on 01/19/17 21:55; Start 01/17/17 at 21:30 Acetaminophen (Tylenol) 650 mg Q6H PRN PO PAIN SCALE 1 TO 2; Start 01/17/17 at 21:30 Acetaminophen/ Hydrocodone Bitart ([place] 5-325 Mg) 1 tab Q4H PRN PO PAIN SCALE 3 TO 5 Last administered on 01/20/17 13:48; Start 01/17/17 at 21:30 Acetaminophen/ Hydrocodone Bitart ([place] 7.5-325 Mg) 1 tab Q4H PRN PO PAIN SCALE 6 TO 10 Last administered on 01/20/17 21:16; Start 01/17/17 at 21:30 Morphine Sulfate (Morphine Inj) 2 mg Q3H PRN IV BREAKTHROUGH PAIN; Start at 21:30; Stop 01/18/17 at 08:13; Status DC Naloxone HCl (Narcan Inj) 0.4 mg UNSCH PRN IV SEE LABEL COMMENTS; Start at 21:30 Atorvastatin Calcium (Lipitor) 40 mg HS PO Last administered on 01/20/17 21:15 ; Start 01/18/17 at 21:00 Bupropion HCl (Wellbutrin Xl 24 Hr) 300 mg DAILY PO ; Start 01/18/17 at 09:00; Stop 01/19/17 at 09:26; Status DC Fluticasone/ Vilanterol (Breo Ellipta 100-25 Inh) 1 puff DAILY INH Last administered on 01/20/17 08:02; Start 01/18/17 at 10:00 Gabapentin (Neurontin) 100 mg BID PO Last administered on 01/20/17 21:13; Start 01/18/17 at 09:00 Metoprolol Succinate (Toprol Xl) 25 mg DAILY PO Last administered on 01/19/17 08:55; Start 01/18/17 at 09:00; Stop 01/20/17 at 08:23; Status DC Non-Formulary Medication 1 tab DAILY PO BPM; Start 01/18/17 at 09:00; Status UNV Nitroglycerin (Nitroglycerin 2% Oint) 0.5 inch Q6HR TOP Last administered on 06:00; Start 01/18/17 at 12:00; Stop 01/20/17 at 08:22; Status DC Aspirin (Ecotrin Ec) 325 mg DAILY PO Last administered on 01/19/17 08:55; Start 01/18/17 at 09:00; Stop 01/20/17 at 08:22; Status DC Losartan Potassium (Cozaar) 50 mg DAILY PO Last administered on 01/20/17 08:22 ; Start 01/18/17 at 09:00 Hydrochlorothiazide (Microzide) 12.5 mg DAILY PO Last administered on 10:21; Start 01/18/17 at 09:00; Stop 01/18/17 at 10:40; Status DC Hydrocortisone Sodium Succinate (SoluCORTEF INJ) 200 mg ONCE ONCE IV Last administered on 01/18/17 11:00; Start 01/18/17 at 11:00; Stop 01/18/17 at 11:01 ; Status DC Albuterol/ Ipratropium (Duoneb Neb) 1 ampule Q6HR NEB PRN NEB SHORTNESS OF BREATH; Start 01/18/17 at 12:00 Midazolam HCl (Versed Inj) 2 mg STK-MED ONCE .ROUTE Last administered on 12:10; Start 01/18/17 at 12:10; Stop 01/18/17 at 12:11; Status DC Fentanyl Citrate (fentaNYL INJ) 100 mcg STK-MED ONCE .ROUTE Last administered on 01/18/17 12:10; Start 01/18/17 at 12:10; Stop 01/18/17 at 12:11; Status DC Hydrocortisone Sodium Succinate (SoluCORTEF INJ) 200 mg STK-MED ONCE .ROUTE ; Start 01/18/17 at 12:10; Stop 01/18/17 at 12:11; Status DC Heparin Sodium (Porcine) 00886 units 10,000 units STK-MED ONCE .ROUTE Last administered on 01/18/17 12:10; Start 01/18/17 at 12:10; Stop 01/18/17 at 12:11 ; Status DC Heparin Sodium/ Sodium Chloride (Heparin-NS/Pf Inj) 500 ml @ As Directed STK- MED ONCE .ROUTE Last administered on 01/18/17 12:11; Start 01/18/17 at 12:11; Stop 01/18/17 at 12:12; Status DC Diphenhydramine HCl (Benadryl Inj) 50 mg STK-MED ONCE .ROUTE Last administered on 01/18/17 12:14; Start 01/18/17 at 12:14; Stop 01/18/17 at 12:15; Status DC Miscellaneous Information 1 1 ONCE ONCE XX ; Start 01/18/17 at 12:45; Stop at 13:01; Status DC Sodium Chloride (NS 1000 ml Inj) 1,000 ml @ 100 mls/hr Q10H IV Last administered on 01/18/17 22:38; Start 01/18/17 at 12:38; Stop 01/19/17 at 00:37 ; Status DC Bacitracin (Bacitracin Oint Packet) 0.9 gm ONCE ONCE TOP ; Start 01/18/17 at 12 :45; Stop 01/18/17 at 13:01; Status DC Iohexol (OMNIPAQUE 350 INJ (Director Clinical Operations)) 50 ml STK-MED ONCE OTHER ; Start at 13:54; Stop 01/18/17 at 13:55; Status DC IV Flush (NS Flush) 2 ml BID IV FLUSH Last administered on 01/20/17 21:17; Start 01/18/17 at 21:00 IV Flush 2 ml 2 ml UNSCH PRN IV FLUSH FLUSH AFTER USING IV ACCESS; Start at 17:15 Papaverine HCl 60 mg/Nitroglycerin 100 mcg/Diltiazem HCl 100 mg/Sodium Chloride 100.0 ml @ 0 mls/hr [employer]ATION ; Start 01/18/17 at 17:15; Stop at 17:14 Cefazolin Sodium 500 mg/Sodium Chloride 505 ml @ 0 mls/hr [employer] ; Start 01/18/17 at 17:15; Stop 01/25/17 at 17:14 Cefazolin Sodium/ Dextrose (Ancef 2 Gm Premix) 50 ml @ 150 mls/hr [employer] IV ; Start 01/18/17 at 17:15; Stop 01/25/17 at 17:14 Metoprolol Tartrate (Lopressor) 12.5 mg [employer] PO ; Start 01/18/17 at 17:15; Stop 01/25/17 at 17:14 Chlorhexidine Gluconate 1 applic 1 applic [employer] TOPICAL ; Start 01/18/17 at 17:15; Stop 01/25/17 at 17:14 Insulin Human Regular/Sodium Chloride (NovoLIN R (IV INFUSION)/NS Inj) 101 ml @ 0 mls/hr [employer] IV ; Start 01/18/17 at 17:15; Stop 01/25/17 at 17:14 Dextrose (D50w (Vial) Inj) 25 ml UNSCH PRN IV PUSH HYPOGLYCEMIA-SEE COMMENTS; Start 01/19/17 at 09:00 Glucagon (Glucagon Inj) 1 mg UNSCH PRN OTHER HYPOGLYCEMIA-SEE COMMENTS; Start 01/19/17 at 09:00 Insulin Aspart (NovoLOG SUPPLEMENTAL SCALE) 1 ACHS SLIDING SCALE SQ Last administered on 01/20/17 21:17; Start 01/19/17 at 11:00 Potassium Chloride (KCl) 30 meq ONCE ONCE PO Last administered on 01/19/17 09: 38; Start 01/19/17 at 09:00; Stop 01/19/17 at 09:06; Status DC Bupropion HCl (Wellbutrin Sr) 150 mg BID PO Last administered on 01/20/17 08:22 ; Start 01/19/17 at 09:30 Morphine Sulfate (Morphine Inj) 2 mg Q4HR PRN IV PUSH CHEST PAIN-NOT RELEIVED BY ORAL MEDS; Start 01/20/17 at 07:45 Aspirin (Ecotrin Ec) 81 mg DAILY PO Last administered on 01/20/17 09:52; Start 01/20/17 at 09:00 Isosorbide Mononitrate (Imdur) 60 mg DAILY@07 PO Last administered on 01/21/17 05:37; Start 01/20/17 at 08:30 Clopidogrel Bisulfate (Plavix) 600 mg ONCE ONCE PO Last administered on 09:53; Start 01/20/17 at 08:30; Stop 01/20/17 at 08:38; Status DC Clopidogrel Bisulfate (Plavix) 75 mg DAILY PO ; Start 01/20/17 at 09:00; Stop 01/20/17 at 09:00; Status DC Carvedilol 3.125 mg 3.125 mg Q12HR PO Last administered on 01/20/17 09:52; Start 01/20/17 at 09:00 Sodium Chloride (NS 1000 ml Inj) 1,000 ml @ 83 mls/hr Q12H3M IV Last administered on 01/20/17 08:23; Start 01/20/17 at 08:23; Stop 01/20/17 at 20:22; Status DC Clopidogrel Bisulfate (Plavix) 75 mg DAILY PO ; Start 01/21/17 at 09:00 A/P Assessment and Plan A/P - CAD s/p cardiac cath with three vessel disease continue aspirin, plavix,imdur, BB, losartan and statin- CT surgery consulted for CABG; however due to poor lung function, CABG was cancelled- awaiting cardiac cath and high-risk PCI- cardiology following- -hypertension; continue losartan , imdur and metoprolol- will monitor and adjust the regimen as needed -diabetes mellitus; diet-controlled- accu-check with SSI -COPD with chronic respiratory failure- oxygen dependent; continue Breo Ellipta and neb treatment -right lung nodule; f/u as outpatient. -DVT prophylaxis- pending cardiac cath. Discharge Planning awaiting cardiac cath, cardiology follow-up and recommendations. Bogdan Pedro MD Jan 21, 2017 08:34
--- NOTE | 2017-01-21 08:40 | RSPPFT ---
DATE OF PROCEDURE: 01/19/17 COMMENTS: Spirometry with FVC of 1.2 predicted 2.6, FEV1 of 0.5 predicted 2.1, FEV1/FVC ratio at 40% predicted 80%. IMPRESSION: On the basis of the above, patient has a severe obstructive lung defect and bronchodilator values have not been measured.
[2017-01-21] MEDS: FLUTICASONE 100 MCG/VILANTEROL 25 MCG INHALER INH SCH (09:00)
[2017-01-21] MEDS ORDERED: CLOPIDOGREL 75 MG TAB PO SCH (09:00)
[2017-01-21] MEDS: SODIUM CHLORIDE 0.9% FLUSH 5 ML FLUSH IV FLUSH SCH ×2 (09:00→20:37)
[2017-01-21] MEDS: LOSARTAN 50 MG TAB PO SCH (09:00)
[2017-01-21] MEDS: buPROPion HCL 150 MG SUSTAINED RELEASE TAB PO SCH ×2 (09:10→20:18)
[2017-01-21] MEDS: GABAPENTIN 100 MG CAP PO SCH ×2 (09:10→20:18)
[2017-01-21] MEDS: CARVEDILOL 3.125 MG TAB PO SCH ×2 (09:11→20:18)
[2017-01-21] MEDS: ASPIRIN EC 81 MG TABEC PO SCH (09:11)
[2017-01-21] MEDS: ACETAMINOPHEN/HYDROcodone 325 MG/7.5 MG TAB PO PRN ×2 (09:12→20:17)
[2017-01-21] MEDS: ONDANSETRON HCL 4 MG/2 ML VIAL IV PRN (10:03)
[2017-01-21] MEDS ORDERED: PRASUGREL 10 MG TAB PO ONE (11:30)
[2017-01-21] MEDS ORDERED: HEPARIN-NS/PF INJ 500 ML ONE (11:31)
[2017-01-21] MEDS ORDERED: methylPREDNISolone SOD SUCC 125 MG/2 ML VIAL ONE (11:39)
[2017-01-21] MEDS ORDERED: MIDAZOLAM HCL 2 MG/2 ML VIAL ONE ×2 (11:39→13:38)
[2017-01-21] MEDS ORDERED: diphenhydrAMINE HCL 50 MG/ML VIAL ONE (11:39)
[2017-01-21] MEDS ORDERED: LIDOCAINE 2%/EPINEPHrine 1:100,000 50ML MDV ONE (11:56)
[2017-01-21] MEDS ORDERED: HEPARIN SODIUM - IV 10,000 UNITS/10 ML VIAL ONE (11:56)
[2017-01-21] MEDS ORDERED: LIDOCAINE HCL 1% PF 30 ML VIAL ONE (11:57)
[2017-01-21] MEDS: SODIUM CHLOR 0.9% 1000 ML INJ 1,000 ML IV SCH (14:43)
[2017-01-21] MEDS ORDERED: METOCLOPRAMIDE HCL 10 MG/2 ML VIAL IV PRN (14:45)
[2017-01-21] MEDS ORDERED: LORazepam 2 MG/ML VIAL IV PRN (14:45)
[2017-01-21] MEDS ORDERED: LIDOCAINE HCL 1% 50 ML VIAL INFIL PRN (14:45)
[2017-01-21] MEDS ORDERED: MISC INFORMATION XX ONE (14:45)
[2017-01-21] MEDS ORDERED: BACITRACIN OINT 0.9 GM PKT TOP ONE (14:45)
[2017-01-21] MEDS ORDERED: SODIUM CHLOR 0.9% 250 ML INJ 250 ML IV PRN (14:45)
[2017-01-21] MEDS ORDERED: LIDOCAINE 2% JELLY 30 ML TUBE TOP PRN (14:45)
[2017-01-21] MEDS ORDERED: PRASUGREL 10 MG TAB ONE (15:09)
[2017-01-21] MEDS ORDERED: IOHEXOL 350 MG/ML 50 ML BTL (for Cath Lab) OTHER ONE (15:44)
[2017-01-21] MEDS ORDERED: IOHEXOL 350 MG/ML 100 ML BTL (for Cath Lab) OTHER ONE (15:44)
[2017-01-21] MEDS ORDERED: cloNIDine HCL 0.1 MG TAB PO PRN (15:45)
[2017-01-21] MEDS: ATORVASTATIN 40 MG TAB PO SCH (20:17)
[2017-01-22] VITALS (19 sets, daily range): BP systolic 108–135; BP diastolic 50–85; PULSE 70–98; RESP 16–20; TEMP 97.6–98.6; O2SAT 91–96
[2017-01-22] MEDS: SODIUM CHLOR 0.9% 1000 ML INJ 1,000 ML IV SCH (00:43)
[2017-01-22 04:07] LABS: AUTOMATED NEUTROPHIL # 9.3 TH/MM3 (1.8-7.7); BASOPHIL % 0.3 % (0.0-2.0); EOSINOPHIL % 0.1 % (0.0-4.0); HEMATOCRIT 36.4 % (35.0-46.0); HEMO FLAGS DIFF FINAL; LYMPH % 4.4 % (9.0-44.0); LYMPHOCYTE # 0.5 TH/MM3 (1.0-4.8); MEAN CORPUSCULAR HEMOGLOBIN 30.9 PG (27.0-34.0); MEAN CORPUSCULAR HGB CONC 33.3 % (32.0-36.0); MONO % 5.7 % (0.0-8.0); NEUT % 89.5 % (16.0-70.0); PLATELET COUNT 166 TH/MM3 (150-450); RED BLOOD COUNT 3.91 MIL/MM3 (4.00-5.30); RED CELL DISTRIBUTION WIDTH 13.1 % (11.6-17.2); WHITE BLOOD COUNT 10.4 TH/MM3 (4.0-11.0)
[2017-01-22 04:29] LABS: BICARBONATE 30.7 MEQ/L (21.0-32.0); POTASSIUM 3.9 MEQ/L (3.5-5.1)
[2017-01-22 04:30] LABS: HDL CHOLESTEROL 82.9 MG/DL (40.0-60.0)
[2017-01-22] MEDS: ISOSORBIDE MONONITRATE 60 MG TAB PO SCH (05:49)
[2017-01-22] MEDS: INSULIN ASPART SUPPLEMENTAL SCALE SQ SCH ×4 (05:50→20:45)
--- NOTE | 2017-01-22 08:08 | HHI.PR ---
Subjective Remarks resting comfortably with no distress. denies chest pain or sob. says that had a good night. d/w the RN and no acute issues over night. Objective Vitals Vital Signs Date Time Temp Pulse Resp B/P Pulse Ox O2 Delivery O2 Flow Rate FiO2 01/22/17 06:00 70 01/22/17 05:00 79 01/22/17 04:00 97.6 76 20 110/53 93 01/22/17 04:00 76 01/22/17 03:00 78 01/22/17 02:00 84 01/22/17 01:00 86 01/22/17 00:00 90 01/22/17 00:00 98.2 98 20 135/85 91 01/21/17 23:00 90 01/21/17 22:00 98 01/21/17 21:00 81 01/21/17 20:00 96 Nasal Cannula 3.00 01/21/17 20:00 85 01/21/17 20:00 98.1 80 20 141/71 95 01/21/17 19:00 85 01/21/17 18:00 76 01/21/17 17:00 78 01/21/17 16:00 77 01/21/17 16:00 97.8 77 18 149/91 95 01/21/17 11:29 85 01/21/17 11:29 97.9 85 18 116/60 97 01/21/17 10:36 18 01/21/17 10:09 66 01/21/17 09:58 66 I/O 01/21/17 01/21/17 01/21/17 01/22/17 01/22/17 01/22/17 07:00 15:00 23:00 07:00 15:00 23:00 Intake Total 980 ml 240 ml 1419 ml Output Total 975 ml 1275 ml Balance 980 ml -735 ml 144 ml Intake Oral 480 ml 240 ml 480 ml IV Total 500 ml 0 ml 939 ml Output Urine Total 975 ml 1275 ml # Bowel Movements 0 0 Result Diagram: 01/22/17 0315 01/22/17 0315 Imaging Last Impressions Lower Extremity Ultrasound 01/18/17 0000 Signed Impressions: Service Date/Time: Wednesday, January 18, 2017 19:28 - CONCLUSION: No evidence of DVT. Superficial venous system is patent with measurements given above. Herbert Pope MD Chest CT 01/18/17 0000 Signed Impressions: Service Date/Time: Thursday, January 19, 2017 11:25 - CONCLUSION: 1. Small nodule right lower lobe laterally measuring 5-[address] chest in 6 months recommended for stability. 2. No consolidation or mass. 3. Coronary artery disease with calcifications and stents. Jayce Biswas MD Carotid Artery Ultrasound 01/18/17 0000 Signed Impressions: Service Date/Time: Wednesday, January 18, 2017 18:47 - CONCLUSION: Bilateral calcified and non-calcified carotid plaques without sonographic or Doppler evidence of significant stenosis. Antegrade flow both vertebral arteries. Herbert Pope MD Chest X-Ray 01/17/17 1648 Signed Impressions: Service Date/Time: Tuesday, January 17, 2017 17:12 - CONCLUSION: Mild increased density right base suggesting early airspace disease. Shon Knowlse MD FACR Objective Remarks GENERAL: This is a well-nourished, well-developed patient, in no apparent distress. CARDIOVASCULAR: Regular rate and regular rhythm without murmurs, gallops, or rubs. RESPIRATORY: Clear to auscultation. Breath sounds equal bilaterally. No wheezes , rales, or rhonchi. GASTROINTESTINAL: Abdomen soft, non-tender, nondistended. Normal, active bowel sounds MUSCULOSKELETAL: Extremities without clubbing, cyanosis, or edema. NEURO: Alert & Oriented x4 to person, place, time, situation. Moves all ext x4 Procedures cardiac cath. Medications and IVs Current Medications Morphine Sulfate (Morphine Inj) 4 mg ONCE ONCE IV PUSH Last administered on 17:30; Start 01/17/17 at 17:00; Stop 01/17/17 at 17:01; Status DC Nitroglycerin (Nitroglycerin 2% Oint) 1 inch ONCE ONCE TOP Last administered on 01/17/17 17:28; Start 01/17/17 at 17:00; Stop 01/17/17 at 17:01; Status DC IV Flush (NS Flush) 2 ml UNSCH PRN IVF FLUSH AFTER USING IV ACCESS; Start 01/17 at 17:00; Stop 01/17/17 at 18:18; Status DC Ondansetron HCl (Zofran Inj) 4 mg ONCE ONCE IV PUSH Last administered on 17:28; Start 01/17/17 at 17:00; Stop 01/17/17 at 17:01; Status DC IV Flush (NS Flush) 2 ml UNSCH PRN IVF FLUSH AFTER USING IV ACCESS Last administered on 01/18/17 00:13; Start 01/17/17 at 18:15; Stop 01/18/17 at 17:35 ; Status DC IV Flush (NS Flush) 2 ml BID IVF Last administered on 01/18/17 10:21; Start at 21:00; Stop 01/18/17 at 17:35; Status DC Ondansetron HCl (Zofran Inj) 4 mg Q6H PRN IV NAUSEA Last administered on 10:03; Start 01/17/17 at 18:15 Nitroglycerin (Nitroglycerin 2% Oint) 1 inch Q6HR TOP Last administered on 01/18 05:37; Start 01/18/17 at 00:00; Stop 01/18/17 at 08:11; Status DC Nitroglycerin (Nitrostat Sl) 0.4 mg Q5M PRN SL X 3 doses for chest pain Last administered on 01/19/17 21:55; Start 01/17/17 at 21:30 Acetaminophen (Tylenol) 650 mg Q6H PRN PO PAIN SCALE 1 TO 2; Start 01/17/17 at 21:30 Acetaminophen/ Hydrocodone Bitart (Myton 5-325 Mg) 1 tab Q4H PRN PO PAIN SCALE 3 TO 5 Last administered on 01/20/17 13:48; Start 01/17/17 at 21:30 Acetaminophen/ Hydrocodone Bitart (Myton 7.5-325 Mg) 1 tab Q4H PRN PO PAIN SCALE 6 TO 10 Last administered on 01/21/17 20:17; Start 01/17/17 at 21:30 Morphine Sulfate (Morphine Inj) 2 mg Q3H PRN IV BREAKTHROUGH PAIN; Start at 21:30; Stop 01/18/17 at 08:13; Status DC Naloxone HCl (Narcan Inj) 0.4 mg UNSCH PRN IV SEE LABEL COMMENTS; Start at 21:30 Atorvastatin Calcium (Lipitor) 40 mg HS PO Last administered on 01/21/17 20:17 ; Start 01/18/17 at 21:00 Bupropion HCl (Wellbutrin Xl 24 Hr) 300 mg DAILY PO ; Start 01/18/17 at 09:00; Stop 01/19/17 at 09:26; Status DC Fluticasone/ Vilanterol (Breo Ellipta 100-25 Inh) 1 puff DAILY INH Last administered on 01/21/17 09:00; Start 01/18/17 at 10:00 Gabapentin (Neurontin) 100 mg BID PO Last administered on 01/21/17 20:18; Start 01/18/17 at 09:00 Metoprolol Succinate (Toprol Xl) 25 mg DAILY PO Last administered on 01/19/17 08:55; Start 01/18/17 at 09:00; Stop 01/20/17 at 08:23; Status DC Non-Formulary Medication 1 tab DAILY PO BPM; Start 01/18/17 at 09:00; Status UNV Nitroglycerin (Nitroglycerin 2% Oint) 0.5 inch Q6HR TOP Last administered on 06:00; Start 01/18/17 at 12:00; Stop 01/20/17 at 08:22; Status DC Aspirin (Ecotrin Ec) 325 mg DAILY PO Last administered on 01/19/17 08:55; Start 01/18/17 at 09:00; Stop 01/20/17 at 08:22; Status DC Losartan Potassium (Cozaar) 50 mg DAILY PO Last administered on 01/21/17 09:00 ; Start 01/18/17 at 09:00 Hydrochlorothiazide (Microzide) 12.5 mg DAILY PO Last administered on 10:21; Start 01/18/17 at 09:00; Stop 01/18/17 at 10:40; Status DC Hydrocortisone Sodium Succinate (SoluCORTEF INJ) 200 mg ONCE ONCE IV Last administered on 01/18/17 11:00; Start 01/18/17 at 11:00; Stop 01/18/17 at 11:01 ; Status DC Albuterol/ Ipratropium (Duoneb Neb) 1 ampule Q6HR NEB PRN NEB SHORTNESS OF BREATH; Start 01/18/17 at 12:00 Midazolam HCl (Versed Inj) 2 mg STK-MED ONCE .ROUTE Last administered on 12:10; Start 01/18/17 at 12:10; Stop 01/18/17 at 12:11; Status DC Fentanyl Citrate (fentaNYL INJ) 100 mcg STK-MED ONCE .ROUTE Last administered on 01/18/17 12:10; Start 01/18/17 at 12:10; Stop 01/18/17 at 12:11; Status DC Hydrocortisone Sodium Succinate (SoluCORTEF INJ) 200 mg STK-MED ONCE .ROUTE ; Start 01/18/17 at 12:10; Stop 01/18/17 at 12:11; Status DC Heparin Sodium (Porcine) 38227 units 10,000 units STK-MED ONCE .ROUTE Last administered on 01/18/17 12:10; Start 01/18/17 at 12:10; Stop 01/18/17 at 12:11 ; Status DC Heparin Sodium/ Sodium Chloride (Heparin-NS/Pf Inj) 500 ml @ As Directed STK- MED ONCE .ROUTE Last administered on 01/18/17 12:11; Start 01/18/17 at 12:11; Stop 01/18/17 at 12:12; Status DC Diphenhydramine HCl (Benadryl Inj) 50 mg STK-MED ONCE .ROUTE Last administered on 01/18/17 12:14; Start 01/18/17 at 12:14; Stop 01/18/17 at 12:15; Status DC Miscellaneous Information 1 1 ONCE ONCE XX ; Start 01/18/17 at 12:45; Stop at 13:01; Status DC Sodium Chloride (NS 1000 ml Inj) 1,000 ml @ 100 mls/hr Q10H IV Last administered on 01/18/17 22:38; Start 01/18/17 at 12:38; Stop 01/19/17 at 00:37 ; Status DC Bacitracin (Bacitracin Oint Packet) 0.9 gm ONCE ONCE TOP ; Start 01/18/17 at 12 :45; Stop 01/18/17 at 13:01; Status DC Iohexol (OMNIPAQUE 350 INJ (Cardiac Cath Lab Manager)) 50 ml STK-MED ONCE OTHER ; Start at 13:54; Stop 01/18/17 at 13:55; Status DC IV Flush (NS Flush) 2 ml BID IV FLUSH Last administered on 01/21/17 09:00; Start 01/18/17 at 21:00 IV Flush 2 ml 2 ml UNSCH PRN IV FLUSH FLUSH AFTER USING IV ACCESS; Start at 17:15 Papaverine HCl 60 mg/Nitroglycerin 100 mcg/Diltiazem HCl 100 mg/Sodium Chloride 100.0 ml @ 0 mls/hr [employer] IRRIGATION ; Start 01/18/17 at 17:15; Stop at 17:14 Cefazolin Sodium 500 mg/Sodium Chloride 505 ml @ 0 mls/hr [employer] IRRIGATION ; Start 01/18/17 at 17:15; Stop 01/25/17 at 17:14 Cefazolin Sodium/ Dextrose (Ancef 2 Gm Premix) 50 ml @ 150 mls/hr [employer] IV ; Start 01/18/17 at 17:15; Stop 01/25/17 at 17:14 Metoprolol Tartrate (Lopressor) 12.5 mg [employer] PO ; Start 01/18/17 at 17:15; Stop 01/25/17 at 17:14 Chlorhexidine Gluconate 1 applic 1 applic [employer] TOPICAL ; Start 01/18/17 at 17:15; Stop 01/25/17 at 17:14 Insulin Human Regular/Sodium Chloride (NovoLIN R (IV INFUSION)/NS Inj) 101 ml @ 0 mls/hr [employer] IV ; Start 01/18/17 at 17:15; Stop 01/25/17 at 17:14 Dextrose (D50w (Vial) Inj) 25 ml UNSCH PRN IV PUSH HYPOGLYCEMIA-SEE COMMENTS; Start 01/19/17 at 09:00 Glucagon (Glucagon Inj) 1 mg UNSCH PRN OTHER HYPOGLYCEMIA-SEE COMMENTS; Start 01/19/17 at 09:00 Insulin Aspart (NovoLOG SUPPLEMENTAL SCALE) 1 ACHS SLIDING SCALE SQ Last administered on 01/22/17 05:50; Start 01/19/17 at 11:00 Potassium Chloride (KCl) 30 meq ONCE ONCE PO Last administered on 01/19/17 09: 38; Start 01/19/17 at 09:00; Stop 01/19/17 at 09:06; Status DC Bupropion HCl (Wellbutrin Sr) 150 mg BID PO Last administered on 01/21/17 09:10 ; Start 01/19/17 at 09:30 Morphine Sulfate (Morphine Inj) 2 mg Q4HR PRN IV PUSH CHEST PAIN-NOT RELEIVED BY ORAL MEDS; Start 01/20/17 at 07:45 Aspirin (Ecotrin Ec) 81 mg DAILY PO Last administered on 01/21/17 09:11; Start 01/20/17 at 09:00 Isosorbide Mononitrate (Imdur) 60 mg DAILY@07 PO Last administered on 01/22/17 05:49; Start 01/20/17 at 08:30 Clopidogrel Bisulfate (Plavix) 600 mg ONCE ONCE PO Last administered on 09:53; Start 01/20/17 at 08:30; Stop 01/20/17 at 08:38; Status DC Clopidogrel Bisulfate (Plavix) 75 mg DAILY PO ; Start 01/20/17 at 09:00; Stop 01/20/17 at 09:00; Status DC Carvedilol 3.125 mg 3.125 mg Q12HR PO Last administered on 01/21/17 20:18; Start 01/20/17 at 09:00 Sodium Chloride (NS 1000 ml Inj) 1,000 ml @ 83 mls/hr Q12H3M IV Last administered on 01/20/17 08:23; Start 01/20/17 at 08:23; Stop 01/20/17 at 20:22; Status DC Clopidogrel Bisulfate (Plavix) 75 mg DAILY PO Last administered on 01/21/17 09: 12; Start 01/21/17 at 09:00; Stop 01/21/17 at 10:58; Status DC Prasugrel (Effient) 60 mg ONCE ONCE PO ; Start 01/21/17 at 11:30; Stop 01/21/17 at 11:31; Status DC Prasugrel 10 mg 10 mg DAILY PO ; Start 01/22/17 at 09:00 Heparin Sodium/ Sodium Chloride (Heparin-NS/Pf Inj) 500 ml @ As Directed STK- MED ONCE .ROUTE ; Start 01/21/17 at 11:31; Stop 01/21/17 at 11:32; Status DC Diphenhydramine HCl (Benadryl Inj) 50 mg STK-MED ONCE .ROUTE Last administered on 01/21/17 11:39; Start 01/21/17 at 11:39; Stop 01/21/17 at 11:40; Status DC Methylprednisolone Sodium Succinate (SoluMEDROL INJ) 125 mg STK-MED ONCE .ROUTE Last administered on 01/21/17 11:39; Start 01/21/17 at 11:39; Stop 01/21/17 at 11:40; Status DC Midazolam HCl (Versed Inj) 2 mg STK-MED ONCE .ROUTE Last administered on 11:39; Start 01/21/17 at 11:39; Stop 01/21/17 at 11:40; Status DC Fentanyl Citrate (fentaNYL INJ) 100 mcg STK-MED ONCE .ROUTE Last administered on 01/21/17 11:51; Start 01/21/17 at 11:39; Stop 01/21/17 at 11:40; Status DC Heparin Sodium (Porcine) (Heparin Inj) 10,000 units STK-MED ONCE .ROUTE ; Start 01/21/17 at 11:56; Stop 01/21/17 at 11:57; Status DC Lidocaine HCl (Xylocaine-Mpf 1% Inj) 30 ml STK-MED ONCE .ROUTE ; Start 01/21/17 at 11:57; Stop 01/21/17 at 11:58; Status DC Midazolam HCl (Versed Inj) 2 mg STK-MED ONCE .ROUTE Last administered on 13:38; Start 01/21/17 at 13:38; Stop 01/21/17 at 13:39; Status DC Fentanyl Citrate (fentaNYL INJ) 100 mcg STK-MED ONCE .ROUTE Last administered on 01/21/17 13:38; Start 01/21/17 at 13:38; Stop 01/21/17 at 13:39; Status DC Lidocaine HCl 1 applic 1 applic UNSCH PRN TOP CATHETER INSERTION; Start at 14:45 Sodium Chloride (NS 1000 ml Inj) 1,000 ml @ 100 mls/hr Q10H IV Last administered on 01/21/17 14:43; Start 01/21/17 at 14:43; Stop 01/22/17 at 02:42; Status DC Miscellaneous Information 1 ONCE ONCE XX ; Start 01/21/17 at 14:45; Stop at 15:09; Status DC Lorazepam 0.5 mg 0.5 mg UNSCH PRN IV ANXIETY Last administered on 01/22/17 00: 17; Start 01/21/17 at 14:45; Stop 01/22/17 at 14:44 Sodium Chloride (NS 250 ml Inj) 250 ml @ 500 mls/hr ONCE PRN IV VAGAL REPONSE ; Start 01/21/17 at 14:45; Stop 01/22/17 at 14:44 Metoclopramide HCl (Reglan Inj) 10 mg Q4H PRN IV NAUSEA; Start 01/21/17 at 14:45 Lidocaine HCl (Xylocaine 1% Inj (50 ml)) 10 ml UNSCH PRN INFIL SHEATH REMOVAL; Start 01/21/17 at 14:45; Stop 01/22/17 at 14:44 Bacitracin (Bacitracin Oint Packet) 0.9 gm ONCE ONCE TOP ; Start 01/21/17 at 14: 45; Stop 01/21/17 at 15:01; Status DC Prasugrel (Effient) 60 mg STK-MED ONCE .ROUTE Last administered on 01/21/17 15: 09; Start 01/21/17 at 15:09; Stop 01/21/17 at 15:10; Status DC Clonidine (Catapres) 0.2 mg Q6H PRN PO SBP>160, DBP>90; Start 01/21/17 at 15:45 Ferrous Sulfate (Ferrous Sulfate) 325 mg DAILY PO ; Start 01/22/17 at 09:00 Iohexol (OMNIPAQUE 350 INJ (Cardiac Cath Lab Manager)) 100 ml STK-MED ONCE OTHER ; Start at 15:44; Stop 01/21/17 at 15:45; Status DC Iohexol (OMNIPAQUE 350 INJ (Cardiac Cath Lab Manager)) 50 ml STK-MED ONCE OTHER ; Start 01/21/17 at 15:44; Stop 01/21/17 at 15:45; Status DC A/P Assessment and Plan A/P - CAD s/p cardiac cath with three vessel disease continue aspirin, plavix,imdur, BB, losartan and statin- CT surgery consulted for CABG; however due to poor lung function, CABG was cancelled- had repeated cardiac cath and PCI- awaiting cardiology follow-up. -hypertension; continue losartan , imdur and metoprolol- will monitor and adjust the regimen as needed -diabetes mellitus; diet-controlled- accu-check with SSI -COPD with chronic respiratory failure- oxygen dependent; continue Breo Ellipta and neb treatment -right lung nodule; f/u as outpatient; this was d/w the RN. Discharge Planning when cleared by cardiology. Bogdan Pedro MD Jan 22, 2017 08:08
[2017-01-22] MEDS ORDERED: PRAS10TA PO (08:13)
[2017-01-22] MEDS ORDERED: COZA50TA PO (08:13)
[2017-01-22] MEDS ORDERED: ASPI81TA11 PO (08:13)
[2017-01-22] MEDS ORDERED: CARV3.125 PO (08:13)
[2017-01-22] MEDS ORDERED: ISOS60TA PO (08:13)
--- NOTE | 2017-01-22 08:14 | HHI.DCPOC ---
Discharge Care Plan Diagnosis: (1) Coronary artery disease Your Health Problems Are: Chest Pain Goals to Promote Your Health * To prevent worsening of your condition and complications * To maintain your health at the optimal level Directions to Meet Your Goals Take your medications as prescribed Follow your dietary instruction Follow activity as directed Keep your appointments as scheduled Take your immunizations and boosters as scheduled If your symptoms worsen call your PCP, if no PCP go to Urgent Care Center or Emergency Room Smoking is Dangerous to Your Health. Avoid second hand smoke Call the 24-hour hour crisis hotline for domestic abuse at Bogdan Pedro MD Jan 22, 2017 08:14
[2017-01-22] MEDS: ASPIRIN EC 81 MG TABEC PO SCH (08:39)
[2017-01-22] MEDS: FERROUS SULFATE 325 MG (65 MG ELEMENTAL IRON) TAB PO SCH (08:39)
[2017-01-22] MEDS: CARVEDILOL 3.125 MG TAB PO SCH (08:39)
[2017-01-22] MEDS: PRASUGREL 10 MG TAB PO SCH (08:39)
[2017-01-22] MEDS: ACETAMINOPHEN/HYDROcodone 325 MG/7.5 MG TAB PO PRN ×3 (08:40→23:05)
[2017-01-22] MEDS: buPROPion HCL 150 MG SUSTAINED RELEASE TAB PO SCH ×2 (08:40→20:45)
[2017-01-22] MEDS: GABAPENTIN 100 MG CAP PO SCH ×2 (08:40→20:44)
[2017-01-22] MEDS: SODIUM CHLORIDE 0.9% FLUSH 5 ML FLUSH IV FLUSH SCH ×2 (08:43→20:44)
[2017-01-22] MEDS: FLUTICASONE 100 MCG/VILANTEROL 25 MCG INHALER INH SCH (08:43)
[2017-01-22] MEDS: LOSARTAN 50 MG TAB PO SCH (08:46)
[2017-01-22] MEDS ORDERED: NITROGLYCERIN 2% OINT 1 GM PACKET ONE (15:16)
--- NOTE | 2017-01-22 15:27 | PD.CARD.PN ---
Subjective Subjective Remarks Resting comfortably now, but c/o intermittant CP when up and about - "NTG was helping before- no longer on" Objective Medications Current Medications Medications (Trade) Dose Ordered Sig/Bhakti Route Start Time Stop Time Status Last Admin (Zofran Inj) 4 mg Q6H PRN IV 01/17/17 18:15 01/21/17 10:03 (Nitrostat Sl) 0.4 mg Q5M PRN SL 01/17/17 21:30 01/19/17 21:55 (Tylenol) 650 mg Q6H PRN PO 01/17/17 21:30 ([place] 5-325 Mg) 1 tab Q4H PRN PO 01/17/17 21:30 01/20/17 13:48 ([place] 7.5-325 Mg) 1 tab Q4H PRN PO 01/17/17 21:30 01/22/17 15:02 (Narcan Inj) 0.4 mg UNSCH PRN IV 01/17/17 21:30 (Lipitor) 40 mg HS PO 01/18/17 21:00 01/21/17 20:17 (Breo Ellipta 100-25 Inh) 1 puff DAILY INH 01/18/17 10:00 01/22/17 08:43 (Neurontin) 100 mg BID PO 01/18/17 09:00 01/22/17 08:40 (NS Flush) 2 ml BID IV FLUSH 01/18/17 21:00 01/22/17 08:43 (NS Flush) 2 ml UNSCH PRN IV FLUSH 01/18/17 17:15 (D50w (Vial) Inj) 25 ml UNSCH PRN IV PUSH 01/19/17 09:00 (Glucagon Inj) 1 mg UNSCH PRN OTHER 01/19/17 09:00 (Wellbutrin Sr) 150 mg BID PO 01/19/17 09:30 01/22/17 08:40 (Morphine Inj) 2 mg Q4HR PRN IV PUSH 01/20/17 07:45 (Ecotrin Ec) 81 mg DAILY PO 01/20/17 09:00 01/22/17 08:39 (Imdur) 60 mg DAILY@07 PO 01/20/17 08:30 01/22/17 05:49 (Coreg) 3.125 mg Q12HR PO 01/20/17 09:00 01/22/17 08:39 (Effient) 10 mg DAILY PO 01/22/17 09:00 01/22/17 08:39 (Xylocaine 2% Jelly) 1 applic UNSCH PRN TOP 01/21/17 14:45 (Reglan Inj) 10 mg Q4H PRN IV 01/21/17 14:45 (Catapres) 0.2 mg Q6H PRN PO 01/21/17 15:45 (Ferrous Sulfate) 325 mg DAILY PO 01/22/17 09:00 01/22/17 08:39 (Cozaar) 25 mg DAILY PO 01/22/17 09:00 01/22/17 08:46 Vital Signs / I&O Vital Signs Date Time Temp Pulse Resp B/P Pulse Ox O2 Delivery O2 Flow Rate FiO2 01/22/17 12:00 90 01/22/17 11:00 84 01/22/17 11:00 98.1 80 18 108/59 96 01/22/17 10:00 92 01/22/17 09:00 92 01/22/17 08:17 96 Nasal Cannula 3.00 01/22/17 08:00 82 01/22/17 07:00 83 01/22/17 07:00 97.8 83 18 110/50 96 01/22/17 06:00 70 01/22/17 05:00 79 01/22/17 04:00 97.6 76 20 110/53 93 01/22/17 04:00 76 01/22/17 03:00 78 01/22/17 02:00 84 01/22/17 01:00 86 01/22/17 00:00 90 01/22/17 00:00 98.2 98 20 135/85 91 01/21/17 23:00 90 01/21/17 22:00 98 01/21/17 21:00 81 01/21/17 20:00 96 Nasal Cannula 3.00 01/21/17 20:00 85 01/21/17 20:00 98.1 80 20 141/71 95 01/21/17 19:00 85 01/21/17 18:00 76 01/21/17 17:00 78 01/21/17 16:00 77 01/21/17 16:00 97.8 77 18 149/91 95 I/O 01/21/17 01/21/17 01/21/17 01/22/17 01/22/17 01/22/17 07:00 15:00 23:00 07:00 15:00 23:00 Intake Total 980 ml 240 ml 1419 ml Output Total 975 ml 1275 ml Balance 980 ml -735 ml 144 ml Intake Oral 480 ml 240 ml 480 ml IV Total 500 ml 0 ml 939 ml Output Urine Total 975 ml 1275 ml # Bowel Movements 0 0 Physical Exam HEENT/neck: - JVD Lungs: CTA BL CV: RRR Ext: -CCE Laboratory Laboratory Tests Test 01/22/17 03:15 White Blood Count 10.4 TH/MM3 Red Blood Count 3.91 MIL/MM3 Hemoglobin 12.1 GM/DL Hematocrit 36.4 % Mean Corpuscular Volume 93.0 FL Mean Corpuscular Hemoglobin 30.9 PG Mean Corpuscular Hemoglobin 33.3 % Concent Red Cell Distribution Width 13.1 % Platelet Count 166 TH/MM3 Mean Platelet Volume 9.1 FL Neutrophils (%) (Auto) 89.5 % Lymphocytes (%) (Auto) 4.4 % Monocytes (%) (Auto) 5.7 % Eosinophils (%) (Auto) 0.1 % Basophils (%) (Auto) 0.3 % Neutrophils # (Auto) 9.3 TH/MM3 Lymphocytes # (Auto) 0.5 TH/MM3 Monocytes # (Auto) 0.6 TH/MM3 Eosinophils # (Auto) 0.0 TH/MM3 Basophils # (Auto) 0.0 TH/MM3 CBC Comment DIFF FINAL Differential Comment Sodium Level 139 MEQ/L Potassium Level 3.9 MEQ/L Chloride Level 100 MEQ/L Carbon Dioxide Level 30.7 MEQ/L Anion Gap 8 MEQ/L Blood Urea Nitrogen 15 MG/DL Creatinine 0.82 MG/DL Estimat Glomerular Filtration 70 ML/MIN Rate Random Glucose 196 MG/DL Calcium Level 8.3 MG/DL Total Creatine Kinase 70 U/L Triglycerides Level 92 MG/DL Cholesterol Level 174 MG/DL LDL Cholesterol 73 MG/DL HDL Cholesterol 82.9 MG/DL Cholesterol/HDL Ratio 2.09 RATIO Imaging Last Impressions Lower Extremity Ultrasound 01/18/17 0000 Signed Impressions: Service Date/Time: Wednesday, January 18, 2017 19:28 - CONCLUSION: No evidence of DVT. Superficial venous system is patent with measurements given above. Herbert Pope MD Chest CT 01/18/17 0000 Signed Impressions: Service Date/Time: Thursday, January 19, 2017 11:25 - CONCLUSION: 1. Small nodule right lower lobe laterally measuring 5-[address] chest in 6 months recommended for stability. 2. No consolidation or mass. 3. Coronary artery disease with calcifications and stents. Jayce Biswas MD Carotid Artery Ultrasound 01/18/17 0000 Signed Impressions: Service Date/Time: Wednesday, January 18, 2017 18:47 - CONCLUSION: Bilateral calcified and non-calcified carotid plaques without sonographic or Doppler evidence of significant stenosis. Antegrade flow both vertebral arteries. Herbert Pope MD Chest X-Ray 01/17/17 1648 Signed Impressions: Service Date/Time: Tuesday, January 17, 2017 17:12 - CONCLUSION: Mild increased density right base suggesting early airspace disease. Shon Knowles MD FACR Assessment and Plan Problem List: (1) Coronary artery disease (2) Unstable angina (3) Hypoxemic respiratory failure, chronic (4) COPD, severe Assessment and Plan 1) ACS- s/p multiple stent placements yesterday. Not an operative candidate. Would ideally like to add more BB. Discussed with Dr. Alonso and will switch her coreg to 5mg Bystolic which is more pulmonary friendly. Discussed Condition With Dr Alonso Problem Qualifiers (1) Coronary artery disease: Qualified Code: I25.110 - Coronary artery disease with unstable angina pectoris , unspecified vessel or lesion type, unspecified whether [place] or transplanted heart Dayanna Cowan Jan 22, 2017 15:27
[2017-01-22] MEDS: NITROGLYCERIN 2% OINT 1 GM PACKET TOPICAL SCH (17:06)
--- NOTE | 2017-01-22 19:28 | EKG ---
Date Performed: 01/21/2017 Time Performed: 16:42:28 PTAGE: 66 years EKG: Sinus rhythm Indeterminate axis Possible inferior infarct - age undetermined Since previous tracing, no significa nt change noted Abnormal ECG PREVIOUS TRACING : 01/18/2017 08.21 DOCTOR: Devon Pratt Interpretating Date/Time 01/22/2017 19:27:24
--- NOTE | 2017-01-22 19:29 | EKG ---
Date Performed: 01/22/2017 Time Performed: 06:46:08 PTAGE: 66 years EKG: Sinus rhythm Since previous tracing, no significant change noted Normal ECG PREVIOUS TRACING : 01/21/2017 16.42 DOCTOR: Devon Pratt Interpretating Date/Time 01/22/2017 19:27:33
[2017-01-22] MEDS: ATORVASTATIN 40 MG TAB PO SCH (20:45)
[2017-01-23] VITALS (9 sets, daily range): BP systolic 104–128; BP diastolic 51–68; PULSE 72–83; RESP 15–18; TEMP 98.2–98.6; O2SAT 95–98
[2017-01-23] MEDS: ISOSORBIDE MONONITRATE 60 MG TAB PO SCH ×2 (06:09→20:55)
[2017-01-23] MEDS: NITROGLYCERIN 2% OINT 1 GM PACKET TOPICAL SCH ×4 (06:10→23:55)
[2017-01-23] MEDS: INSULIN ASPART SUPPLEMENTAL SCALE SQ SCH ×4 (06:10→21:28)
--- NOTE | 2017-01-23 08:17 | HHI.PR ---
Subjective Remarks sitting on the chair with no acute distress. has on and off chest pain; however no chest pain now. d/w the RN and no other acute issues over night. Objective Vitals Vital Signs Date Time Temp Pulse Resp B/P Pulse Ox O2 Delivery O2 Flow Rate FiO2 01/23/17 07:30 96 Nasal Cannula 3.00 01/23/17 07:10 98.3 78 15 122/66 96 01/23/17 07:10 78 01/23/17 03:21 98.2 72 15 128/68 95 01/23/17 03:21 74 01/22/17 23:17 72 01/22/17 23:17 98.0 72 16 126/75 95 01/22/17 19:34 96 Nasal Cannula 3.00 01/22/17 19:15 97.9 84 16 121/67 96 01/22/17 19:00 84 01/22/17 15:00 77 01/22/17 15:00 98.6 75 18 129/67 96 01/22/17 12:00 90 01/22/17 11:00 84 01/22/17 11:00 98.1 80 18 108/59 96 01/22/17 10:00 92 01/22/17 09:00 92 01/22/17 08:17 96 Nasal Cannula 3.00 I/O 01/22/17 01/22/17 01/22/17 01/23/17 01/23/17 01/23/17 07:00 15:00 23:00 07:00 15:00 23:00 Intake Total 1419 ml 1200 ml 480 ml Output Total 1275 ml 750 ml 1150 ml Balance 144 ml 450 ml -670 ml Intake Oral 480 ml 900 ml 480 ml IV Total 939 ml 300 ml Output Urine Total 1275 ml 750 ml 1150 ml # Bowel Movements 0 0 0 Result Diagram: 01/22/175 01/22/175 Imaging Last Impressions Lower Extremity Ultrasound 01/18/17 0000 Signed Impressions: Service Date/Time: Wednesday, January 18, 2017 19:28 - CONCLUSION: No evidence of DVT. Superficial venous system is patent with measurements given above. Herbert Pope MD Chest CT 01/18/17 0000 Signed Impressions: Service Date/Time: Thursday, January 19, 2017 11:25 - CONCLUSION: 1. Small nodule right lower lobe laterally measuring 5-[address] chest in 6 months recommended for stability. 2. No consolidation or mass. 3. Coronary artery disease with calcifications and stents. Jayce Biswas MD Carotid Artery Ultrasound 01/18/17 0000 Signed Impressions: Service Date/Time: Wednesday, January 18, 2017 18:47 - CONCLUSION: Bilateral calcified and non-calcified carotid plaques without sonographic or Doppler evidence of significant stenosis. Antegrade flow both vertebral arteries. Herbert Pope MD Chest X-Ray 01/17/17 1648 Signed Impressions: Service Date/Time: Tuesday, January 17, 2017 17:12 - CONCLUSION: Mild increased density right base suggesting early airspace disease. Shon Knowles MD FACR Objective Remarks GENERAL: This is a well-nourished, well-developed patient, in no apparent distress. CARDIOVASCULAR: Regular rate and regular rhythm without murmurs, gallops, or rubs. RESPIRATORY: Clear to auscultation. Breath sounds equal bilaterally. No wheezes , rales, or rhonchi. GASTROINTESTINAL: Abdomen soft, non-tender, nondistended. Normal, active bowel sounds MUSCULOSKELETAL: Extremities without clubbing, cyanosis, or edema. NEURO: Alert & Oriented x4 to person, place, time, situation. Moves all ext x4 Procedures cardiac cath. Medications and IVs Current Medications Morphine Sulfate (Morphine Inj) 4 mg ONCE ONCE IV PUSH Last administered on 17:30; Start 01/17/17 at 17:00; Stop 01/17/17 at 17:01; Status DC Nitroglycerin (Nitroglycerin 2% Oint) 1 inch ONCE ONCE TOP Last administered on 01/17/17 17:28; Start 01/17/17 at 17:00; Stop 01/17/17 at 17:01; Status DC IV Flush (NS Flush) 2 ml UNSCH PRN IVF FLUSH AFTER USING IV ACCESS; Start 01/17 at 17:00; Stop 01/17/17 at 18:18; Status DC Ondansetron HCl (Zofran Inj) 4 mg ONCE ONCE IV PUSH Last administered on 17:28; Start 01/17/17 at 17:00; Stop 01/17/17 at 17:01; Status DC IV Flush (NS Flush) 2 ml UNSCH PRN IVF FLUSH AFTER USING IV ACCESS Last administered on 01/18/17 00:13; Start 01/17/17 at 18:15; Stop 01/18/17 at 17:35 ; Status DC IV Flush (NS Flush) 2 ml BID IVF Last administered on 01/18/17 10:21; Start at 21:00; Stop 01/18/17 at 17:35; Status DC Ondansetron HCl (Zofran Inj) 4 mg Q6H PRN IV NAUSEA Last administered on 10:03; Start 01/17/17 at 18:15 Nitroglycerin (Nitroglycerin 2% Oint) 1 inch Q6HR TOP Last administered on 01/18 05:37; Start 01/18/17 at 00:00; Stop 01/18/17 at 08:11; Status DC Nitroglycerin (Nitrostat Sl) 0.4 mg Q5M PRN SL X 3 doses for chest pain Last administered on 01/19/17 21:55; Start 01/17/17 at 21:30 Acetaminophen (Tylenol) 650 mg Q6H PRN PO PAIN SCALE 1 TO 2; Start 01/17/17 at 21:30 Acetaminophen/ Hydrocodone Bitart ([place] 5-325 Mg) 1 tab Q4H PRN PO PAIN SCALE 3 TO 5 Last administered on 01/20/17 13:48; Start 01/17/17 at 21:30 Acetaminophen/ Hydrocodone Bitart ([place] 7.5-325 Mg) 1 tab Q4H PRN PO PAIN SCALE 6 TO 10 Last administered on 01/22/17 23:05; Start 01/17/17 at 21:30 Morphine Sulfate (Morphine Inj) 2 mg Q3H PRN IV BREAKTHROUGH PAIN; Start at 21:30; Stop 01/18/17 at 08:13; Status DC Naloxone HCl (Narcan Inj) 0.4 mg UNSCH PRN IV SEE LABEL COMMENTS; Start at 21:30 Atorvastatin Calcium (Lipitor) 40 mg HS PO Last administered on 01/22/17 20:45 ; Start 01/18/17 at 21:00 Bupropion HCl (Wellbutrin Xl 24 Hr) 300 mg DAILY PO ; Start 01/18/17 at 09:00; Stop 01/19/17 at 09:26; Status DC Fluticasone/ Vilanterol (Breo Ellipta 100-25 Inh) 1 puff DAILY INH Last administered on 01/22/17 08:43; Start 01/18/17 at 10:00 Gabapentin (Neurontin) 100 mg BID PO Last administered on 01/22/17 20:44; Start 01/18/17 at 09:00 Metoprolol Succinate (Toprol Xl) 25 mg DAILY PO Last administered on 01/19/17 08:55; Start 01/18/17 at 09:00; Stop 01/20/17 at 08:23; Status DC Non-Formulary Medication 1 tab DAILY PO BPM; Start 01/18/17 at 09:00; Status UNV Nitroglycerin (Nitroglycerin 2% Oint) 0.5 inch Q6HR TOP Last administered on 06:00; Start 01/18/17 at 12:00; Stop 01/20/17 at 08:22; Status DC Aspirin (Ecotrin Ec) 325 mg DAILY PO Last administered on 01/19/17 08:55; Start 01/18/17 at 09:00; Stop 01/20/17 at 08:22; Status DC Losartan Potassium (Cozaar) 50 mg DAILY PO Last administered on 01/21/17 09:00 ; Start 01/18/17 at 09:00; Stop 01/22/17 at 08:42; Status DC Hydrochlorothiazide (Microzide) 12.5 mg DAILY PO Last administered on 10:21; Start 01/18/17 at 09:00; Stop 01/18/17 at 10:40; Status DC Hydrocortisone Sodium Succinate (SoluCORTEF INJ) 200 mg ONCE ONCE IV Last administered on 01/18/17 11:00; Start 01/18/17 at 11:00; Stop 01/18/17 at 11:01 ; Status DC Albuterol/ Ipratropium (Duoneb Neb) 1 ampule Q6HR NEB PRN NEB SHORTNESS OF BREATH; Start 01/18/17 at 12:00 Midazolam HCl (Versed Inj) 2 mg STK-MED ONCE .ROUTE Last administered on 12:10; Start 01/18/17 at 12:10; Stop 01/18/17 at 12:11; Status DC Fentanyl Citrate (fentaNYL INJ) 100 mcg STK-MED ONCE .ROUTE Last administered on 01/18/17 12:10; Start 01/18/17 at 12:10; Stop 01/18/17 at 12:11; Status DC Hydrocortisone Sodium Succinate (SoluCORTEF INJ) 200 mg STK-MED ONCE .ROUTE ; Start 01/18/17 at 12:10; Stop 01/18/17 at 12:11; Status DC Heparin Sodium (Porcine) 02819 units 10,000 units STK-MED ONCE .ROUTE Last administered on 01/18/17 12:10; Start 01/18/17 at 12:10; Stop 01/18/17 at 12:11 ; Status DC Heparin Sodium/ Sodium Chloride (Heparin-NS/Pf Inj) 500 ml @ As Directed STK- MED ONCE .ROUTE Last administered on 01/18/17 12:11; Start 01/18/17 at 12:11; Stop 01/18/17 at 12:12; Status DC Diphenhydramine HCl (Benadryl Inj) 50 mg STK-MED ONCE .ROUTE Last administered on 01/18/17 12:14; Start 01/18/17 at 12:14; Stop 01/18/17 at 12:15; Status DC Miscellaneous Information 1 1 ONCE ONCE XX ; Start 01/18/17 at 12:45; Stop at 13:01; Status DC Sodium Chloride (NS 1000 ml Inj) 1,000 ml @ 100 mls/hr Q10H IV Last administered on 01/18/17 22:38; Start 01/18/17 at 12:38; Stop 01/19/17 at 00:37 ; Status DC Bacitracin (Bacitracin Oint Packet) 0.9 gm ONCE ONCE TOP ; Start 01/18/17 at 12 :45; Stop 01/18/17 at 13:01; Status DC Iohexol (OMNIPAQUE 350 INJ (Disability Insurance Hearing Officer)) 50 ml STK-MED ONCE OTHER ; Start at 13:54; Stop 01/18/17 at 13:55; Status DC IV Flush (NS Flush) 2 ml BID IV FLUSH Last administered on 01/22/17 20:44; Start 01/18/17 at 21:00 IV Flush 2 ml 2 ml UNSCH PRN IV FLUSH FLUSH AFTER USING IV ACCESS; Start at 17:15 Papaverine HCl 60 mg/Nitroglycerin 100 mcg/Diltiazem HCl 100 mg/Sodium Chloride 100.0 ml @ 0 mls/hr RESOURCE CONSERVATION MANAGER IRRIGATION ; Start 01/18/17 at 17:15; Stop at 17:14 Cefazolin Sodium 500 mg/Sodium Chloride 505 ml @ 0 mls/hr RESOURCE CONSERVATION MANAGER IRRIGATION ; Start 01/18/17 at 17:15; Stop 01/25/17 at 17:14 Cefazolin Sodium/ Dextrose (Ancef 2 Gm Premix) 50 ml @ 150 mls/hr RESOURCE CONSERVATION MANAGER IV ; Start 01/18/17 at 17:15; Stop 01/25/17 at 17:14 Metoprolol Tartrate (Lopressor) 12.5 mg RESOURCE CONSERVATION MANAGER PO ; Start 01/18/17 at 17:15; Stop 01/25/17 at 17:14 Chlorhexidine Gluconate 1 applic 1 applic RESOURCE CONSERVATION MANAGER TOPICAL ; Start 01/18/17 at 17:15; Stop 01/25/17 at 17:14 Insulin Human Regular/Sodium Chloride (NovoLIN R (IV INFUSION)/NS Inj) 101 ml @ 0 mls/hr RESOURCE CONSERVATION MANAGER IV ; Start 01/18/17 at 17:15; Stop 01/25/17 at 17:14 Dextrose (D50w (Vial) Inj) 25 ml UNSCH PRN IV PUSH HYPOGLYCEMIA-SEE COMMENTS; Start 01/19/17 at 09:00 Glucagon (Glucagon Inj) 1 mg UNSCH PRN OTHER HYPOGLYCEMIA-SEE COMMENTS; Start 01/19/17 at 09:00 Insulin Aspart (NovoLOG SUPPLEMENTAL SCALE) 1 ACHS SLIDING SCALE SQ Last administered on 01/22/17 20:45; Start 01/19/17 at 11:00 Potassium Chloride (KCl) 30 meq ONCE ONCE PO Last administered on 01/19/17 09: 38; Start 01/19/17 at 09:00; Stop 01/19/17 at 09:06; Status DC Bupropion HCl (Wellbutrin Sr) 150 mg BID PO Last administered on 01/22/17 08:40 ; Start 01/19/17 at 09:30 Morphine Sulfate (Morphine Inj) 2 mg Q4HR PRN IV PUSH CHEST PAIN-NOT RELEIVED BY ORAL MEDS; Start 01/20/17 at 07:45 Aspirin (Ecotrin Ec) 81 mg DAILY PO Last administered on 01/22/17 08:39; Start 01/20/17 at 09:00 Isosorbide Mononitrate (Imdur) 60 mg DAILY@07 PO Last administered on 01/23/17 06:09; Start 01/20/17 at 08:30 Clopidogrel Bisulfate (Plavix) 600 mg ONCE ONCE PO Last administered on 09:53; Start 01/20/17 at 08:30; Stop 01/20/17 at 08:38; Status DC Clopidogrel Bisulfate (Plavix) 75 mg DAILY PO ; Start 01/20/17 at 09:00; Stop 01/20/17 at 09:00; Status DC Carvedilol 3.125 mg 3.125 mg Q12HR PO Last administered on 01/22/17 08:39; Start 01/20/17 at 09:00; Stop 01/22/17 at 15:32; Status DC Sodium Chloride (NS 1000 ml Inj) 1,000 ml @ 83 mls/hr Q12H3M IV Last administered on 01/20/17 08:23; Start 01/20/17 at 08:23; Stop 01/20/17 at 20:22; Status DC Clopidogrel Bisulfate (Plavix) 75 mg DAILY PO Last administered on 01/21/17 09: 12; Start 01/21/17 at 09:00; Stop 01/21/17 at 10:58; Status DC Prasugrel (Effient) 60 mg ONCE ONCE PO ; Start 01/21/17 at 11:30; Stop 01/21/17 at 11:31; Status DC Prasugrel 10 mg 10 mg DAILY PO Last administered on 01/22/17 08:39; Start at 09:00 Heparin Sodium/ Sodium Chloride (Heparin-NS/Pf Inj) 500 ml @ As Directed STK- MED ONCE .ROUTE ; Start 01/21/17 at 11:31; Stop 01/21/17 at 11:32; Status DC Diphenhydramine HCl (Benadryl Inj) 50 mg STK-MED ONCE .ROUTE Last administered on 01/21/17 11:39; Start 01/21/17 at 11:39; Stop 01/21/17 at 11:40; Status DC Methylprednisolone Sodium Succinate (SoluMEDROL INJ) 125 mg STK-MED ONCE .ROUTE Last administered on 01/21/17 11:39; Start 01/21/17 at 11:39; Stop 01/21/17 at 11:40; Status DC Midazolam HCl (Versed Inj) 2 mg STK-MED ONCE .ROUTE Last administered on 11:39; Start 01/21/17 at 11:39; Stop 01/21/17 at 11:40; Status DC Fentanyl Citrate (fentaNYL INJ) 100 mcg STK-MED ONCE .ROUTE Last administered on 01/21/17 11:51; Start 01/21/17 at 11:39; Stop 01/21/17 at 11:40; Status DC Heparin Sodium (Porcine) (Heparin Inj) 10,000 units STK-MED ONCE .ROUTE ; Start 01/21/17 at 11:56; Stop 01/21/17 at 11:57; Status DC Lidocaine HCl (Xylocaine-Mpf 1% Inj) 30 ml STK-MED ONCE .ROUTE ; Start 01/21/17 at 11:57; Stop 01/21/17 at 11:58; Status DC Midazolam HCl (Versed Inj) 2 mg STK-MED ONCE .ROUTE Last administered on 13:38; Start 01/21/17 at 13:38; Stop 01/21/17 at 13:39; Status DC Fentanyl Citrate (fentaNYL INJ) 100 mcg STK-MED ONCE .ROUTE Last administered on 01/21/17 13:38; Start 01/21/17 at 13:38; Stop 01/21/17 at 13:39; Status DC Lidocaine HCl 1 applic 1 applic UNSCH PRN TOP CATHETER INSERTION; Start at 14:45 Sodium Chloride (NS 1000 ml Inj) 1,000 ml @ 100 mls/hr Q10H IV Last administered on 01/21/17 14:43; Start 01/21/17 at 14:43; Stop 01/22/17 at 02:42; Status DC Miscellaneous Information 1 ONCE ONCE XX ; Start 01/21/17 at 14:45; Stop at 15:09; Status DC Lorazepam 0.5 mg 0.5 mg UNSCH PRN IV ANXIETY Last administered on 01/22/17 00: 17; Start 01/21/17 at 14:45; Stop 01/22/17 at 14:44; Status DC Sodium Chloride (NS 250 ml Inj) 250 ml @ 500 mls/hr ONCE PRN IV VAGAL REPONSE ; Start 01/21/17 at 14:45; Stop 01/22/17 at 14:44; Status DC Metoclopramide HCl (Reglan Inj) 10 mg Q4H PRN IV NAUSEA; Start 01/21/17 at 14:45 Lidocaine HCl (Xylocaine 1% Inj (50 ml)) 10 ml UNSCH PRN INFIL SHEATH REMOVAL; Start 01/21/17 at 14:45; Stop 01/22/17 at 14:44; Status DC Bacitracin (Bacitracin Oint Packet) 0.9 gm ONCE ONCE TOP ; Start 01/21/17 at 14: 45; Stop 01/21/17 at 15:01; Status DC Prasugrel (Effient) 60 mg STK-MED ONCE .ROUTE Last administered on 01/21/17 15: 09; Start 01/21/17 at 15:09; Stop 01/21/17 at 15:10; Status DC Clonidine (Catapres) 0.2 mg Q6H PRN PO SBP>160, DBP>90; Start 01/21/17 at 15:45 Ferrous Sulfate (Ferrous Sulfate) 325 mg DAILY PO Last administered on 08:39; Start 01/22/17 at 09:00 Iohexol (OMNIPAQUE 350 INJ (Disability Insurance Hearing Officer)) 100 ml STK-MED ONCE OTHER ; Start at 15:44; Stop 01/21/17 at 15:45; Status DC Iohexol (OMNIPAQUE 350 INJ (Disability Insurance Hearing Officer)) 50 ml STK-MED ONCE OTHER ; Start 01/21/17 at 15:44; Stop 01/21/17 at 15:45; Status DC Losartan Potassium (Cozaar) 25 mg DAILY PO Last administered on 01/22/17 08:46 ; Start 01/22/17 at 09:00 Nitroglycerin (Nitroglycerin 2% Oint) 1 inch STK-MED ONCE .ROUTE Last administered on 01/22/17 15:19; Start 01/22/17 at 15:16; Stop 01/22/17 at 15:17; Status DC Nitroglycerin (Nitroglycerin 2% Oint) 1 inch Q6HR TOPICAL Last administered on 01/23/17 06:10; Start 01/22/17 at 18:00 Nebivolol (Bystolic) 5 mg DAILY PO ; Start 01/23/17 at 09:00 A/P Assessment and Plan A/P - CAD initial cardiac cath with three vessel disease; CT surgery consulted for CABG ; however due to poor lung function, CABG was cancelled- had repeated cardiac cath and PCI- awaiting cardiology follow-up. continue aspirin, effient,imdur, BB, losartan and statin- -hypertension; continue losartan , imdur and Bystolic will monitor and adjust the regimen as needed -diabetes mellitus; diet-controlled- accu-check with SSI -COPD with chronic respiratory failure- oxygen dependent; continue Breo Ellipta and neb treatment -right lung nodule; f/u as outpatient; this was d/w the RN. -DVT prophylaxis with SCD's transfer to [facility] if ok with cardiology. d/w the RN. Discharge Planning when cleared by cardiology. Bogdan Pedro MD Jan 23, 2017 08:17
[2017-01-23] MEDS ORDERED: BYST5TAB2 PO (08:19)
[2017-01-23] MEDS: ASPIRIN EC 81 MG TABEC PO SCH (08:47)
[2017-01-23] MEDS: GABAPENTIN 100 MG CAP PO SCH ×2 (08:47→20:56)
[2017-01-23] MEDS: PRASUGREL 10 MG TAB PO SCH (08:48)
[2017-01-23] MEDS: NEBIVOLOL 5 MG TAB PO SCH (08:48)
[2017-01-23] MEDS: LOSARTAN 50 MG TAB PO SCH (08:48)
[2017-01-23] MEDS: FERROUS SULFATE 325 MG (65 MG ELEMENTAL IRON) TAB PO SCH (08:48)
[2017-01-23] MEDS: FLUTICASONE 100 MCG/VILANTEROL 25 MCG INHALER INH SCH (08:49)
[2017-01-23] MEDS: SODIUM CHLORIDE 0.9% FLUSH 5 ML FLUSH IV FLUSH SCH ×2 (08:49→21:01)
[2017-01-23] MEDS: buPROPion HCL 150 MG SUSTAINED RELEASE TAB PO SCH ×2 (08:49→21:00)
--- NOTE | 2017-01-23 13:38 | PD.CARD.PN ---
Subjective Subjective Remarks Feels much better; sitting up in chair and reports much less CP- nurse reports only "1/10" occasionally with activity Objective Medications Current Medications Medications (Trade) Dose Ordered Sig/Bhakti Route Start Time Stop Time Status Last Admin (Zofran Inj) 4 mg Q6H PRN IV 01/17/17 18:15 01/21/17 10:03 (Nitrostat Sl) 0.4 mg Q5M PRN SL 01/17/17 21:30 01/19/17 21:55 (Tylenol) 650 mg Q6H PRN PO 01/17/17 21:30 ([place] 5-325 Mg) 1 tab Q4H PRN PO 01/17/17 21:30 01/20/17 13:48 ([place] 7.5-325 Mg) 1 tab Q4H PRN PO 01/17/17 21:30 01/22/17 23:05 (Narcan Inj) 0.4 mg UNSCH PRN IV 01/17/17 21:30 (Lipitor) 40 mg HS PO 01/18/17 21:00 01/22/17 20:45 (Breo Ellipta 100-25 Inh) 1 puff DAILY INH 01/18/17 10:00 01/23/17 08:49 (Neurontin) 100 mg BID PO 01/18/17 09:00 01/23/17 08:47 (NS Flush) 2 ml BID IV FLUSH 01/18/17 21:00 01/23/17 08:49 (NS Flush) 2 ml UNSCH PRN IV FLUSH 01/18/17 17:15 (D50w (Vial) Inj) 25 ml UNSCH PRN IV PUSH 01/19/17 09:00 (Glucagon Inj) 1 mg UNSCH PRN OTHER 01/19/17 09:00 (Wellbutrin Sr) 150 mg BID PO 01/19/17 09:30 01/23/17 08:49 (Morphine Inj) 2 mg Q4HR PRN IV PUSH 01/20/17 07:45 (Ecotrin Ec) 81 mg DAILY PO 01/20/17 09:00 01/23/17 08:47 (Effient) 10 mg DAILY PO 01/22/17 09:00 01/23/17 08:48 (Xylocaine 2% Jelly) 1 applic UNSCH PRN TOP 01/21/17 14:45 (Reglan Inj) 10 mg Q4H PRN IV 01/21/17 14:45 (Catapres) 0.2 mg Q6H PRN PO 01/21/17 15:45 (Ferrous Sulfate) 325 mg DAILY PO 01/22/17 09:00 01/23/17 08:48 (Cozaar) 25 mg DAILY PO 01/22/17 09:00 01/23/17 08:48 (Nitroglycerin 2% Oint) 1 inch Q6HR TOPICAL 01/22/17 18:00 01/23/17 12:00 (Bystolic) 5 mg DAILY PO 01/23/17 09:00 01/23/17 08:48 (Imdur) 60 mg BID PO 01/23/17 21:00 Vital Signs / I&O Vital Signs Date Time Temp Pulse Resp B/P Pulse Ox O2 Delivery O2 Flow Rate FiO2 01/23/17 11:00 82 01/23/17 11:00 98.5 83 15 104/58 96 01/23/17 07:30 96 Nasal Cannula 3.00 01/23/17 07:10 98.3 78 15 122/66 96 01/23/17 07:10 78 01/23/17 03:21 98.2 72 15 128/68 95 01/23/17 03:21 74 01/22/17 23:17 72 01/22/17 23:17 98.0 72 16 126/75 95 01/22/17 19:34 96 Nasal Cannula 3.00 01/22/17 19:15 97.9 84 16 121/67 96 01/22/17 19:00 84 01/22/17 15:00 77 01/22/17 15:00 98.6 75 18 129/67 96 I/O 01/22/17 01/22/17 01/22/17 01/23/17 01/23/17 01/23/17 07:00 15:00 23:00 07:00 15:00 23:00 Intake Total 1419 ml 1200 ml 480 ml Output Total 1275 ml 750 ml 1150 ml Balance 144 ml 450 ml -670 ml Intake Oral 480 ml 900 ml 480 ml IV Total 939 ml 300 ml Output Urine Total 1275 ml 750 ml 1150 ml # Bowel Movements 0 0 0 Physical Exam HEENT/neck: - JVD Lungs: CTA BL CV: RRR Ext: -CCE Laboratory Laboratory Tests Test 01/22/17 01/23/17 17:47 05:25 Troponin I 1.68 NG/ML 1.41 NG/ML Imaging Last Impressions Lower Extremity Ultrasound 01/18/17 0000 Signed Impressions: Service Date/Time: Wednesday, January 18, 2017 19:28 - CONCLUSION: No evidence of DVT. Superficial venous system is patent with measurements given above. Herbert Pope MD Chest CT 01/18/17 0000 Signed Impressions: Service Date/Time: Thursday, January 19, 2017 11:25 - CONCLUSION: 1. Small nodule right lower lobe laterally measuring 5-[address] chest in 6 months recommended for stability. 2. No consolidation or mass. 3. Coronary artery disease with calcifications and stents. Jayce Biswas MD Carotid Artery Ultrasound 01/18/17 0000 Signed Impressions: Service Date/Time: Wednesday, January 18, 2017 18:47 - CONCLUSION: Bilateral calcified and non-calcified carotid plaques without sonographic or Doppler evidence of significant stenosis. Antegrade flow both vertebral arteries. Herbert Pope MD Chest X-Ray 01/17/17 1648 Signed Impressions: Service Date/Time: Tuesday, January 17, 2017 17:12 - CONCLUSION: Mild increased density right base suggesting early airspace disease. Shon Knowles MD FACR Assessment and Plan Problem List: (1) Coronary artery disease (2) Unstable angina (3) Hypoxemic respiratory failure, chronic (4) COPD, severe Assessment and Plan 1) ACS- s/p multiple stent placements on Tuesday. Not an operative candidate. EKGs stable, Elevated Troponin post stents- trending down 2) Would ideally like to increase BB. Consider titrating upward if BP allows. Coreg switched to Bystolic yesterday which is more pulmonary friendly- tolerating well. 3) COPD stable. Dr. De La Cruz to resume further cardiac management on Tuesday. Discussed Condition With Dr. Alonso Problem Qualifiers (1) Coronary artery disease: Qualified Code: I25.110 - Coronary artery disease with unstable angina pectoris , unspecified vessel or lesion type, unspecified whether [place] or transplanted heart Dayanna Cowan Jan 23, 2017 13:38
--- NOTE | 2017-01-23 14:27 | EKG ---
Date Performed: 01/22/2017 Time Performed: 18:23:24 PTAGE: 66 years EKG: Sinus rhythm Possible inferior infarct - age undetermined Compared to prior tracing no significant change Abnorma l ECG PREVIOUS TRACING : 01/22/2017 06.46 DOCTOR: Devon Pratt Interpretating Date/Time 01/23/2017 14:25:46
--- NOTE | 2017-01-23 14:28 | EKG ---
Date Performed: 01/23/2017 Time Performed: 03:41:04 PTAGE: 66 years EKG: Sinus rhythm Possible inferior infarct - age undetermined Compared to prior tracing no significant change Abnorma l ECG PREVIOUS TRACING : 01/22/2017 18.23 DOCTOR: Devon Pratt Interpretating Date/Time 01/23/2017 14:25:55
[2017-01-23] MEDS: ATORVASTATIN 40 MG TAB PO SCH (20:56)
[2017-01-24] VITALS (10 sets, daily range): BP systolic 109–147; BP diastolic 55–72; PULSE 70–86; RESP 18–20; TEMP 98–98.5; O2SAT 96–98
[2017-01-24] MEDS: NITROGLYCERIN 2% OINT 1 GM PACKET TOPICAL SCH (06:46)
[2017-01-24] MEDS: INSULIN ASPART SUPPLEMENTAL SCALE SQ SCH (06:46)
[2017-01-24] MEDS: SODIUM CHLORIDE 0.9% FLUSH 5 ML FLUSH IV FLUSH SCH (08:00)
--- NOTE | 2017-01-24 08:04 | PD.CARD.PN ---
Subjective Subjective Remarks c/o left UE pain (Jefferson Gordon) Objective Vital Signs / I&O Vital Signs Date Time Temp Pulse Resp B/P Pulse Ox O2 Delivery O2 Flow Rate FiO2 01/24/17 04:00 98.0 74 20 147/72 98 01/24/17 03:23 73 01/24/17 00:00 98.0 73 20 112/71 98 01/24/17 00:00 73 01/23/17 20:00 98.6 74 18 119/68 98 01/23/17 20:00 74 01/23/17 15:00 78 01/23/17 15:00 98.6 76 15 116/51 96 01/23/17 11:00 82 01/23/17 11:00 98.5 83 15 104/58 96 I/O 01/23/17 01/23/17 01/23/17 01/24/17 01/24/17 01/24/17 07:00 15:00 23:00 07:00 15:00 23:00 Intake Total 480 ml 850 ml 480 ml Output Total 1150 ml 1250 ml 1000 ml Balance -670 ml -400 ml -520 ml Intake Oral 480 ml 850 ml 480 ml Output Urine Total 1150 ml 1250 ml 1000 ml # Bowel Movements 0 1 1 Physical Exam GENERAL: Well-nourished, well-developed patient in no apparent distress. NECK: No JVD. No carotid bruit. CARDIOVASCULAR: Regular rate and rhythm. S1/S2 no murmur, rub, or gallop. RESPIRATORY: No accessory muscle use. Clear to auscultation. Breath sounds equal bilaterally. GASTROINTESTINAL: Abdomen soft, non-tender, nondistended. MUSCULOSKELETAL: Extremities without clubbing, cyanosis, or edema.right radial pulse 2+ (Jefferson Gordon) Assessment and Plan Problem List: (1) Coronary artery disease (2) Unstable angina (3) Hypoxemic respiratory failure, chronic (4) COPD, severe Assessment and Plan CAD s/p multiple PCI with presumed continued angina, consider adding Ranexa. Plavix nonresponder continue Effient HTN - controlled when looking at trends (Jefferson Gordon) Assessment and Plan clinically improved. minimal symptoms no further plans for invasive strategy. optimize medical regimen. add ranexa. DC today FU in [facility] in 2 weeks (Osmin De La Cruz MD) Problem Qualifiers (1) Coronary artery disease: Qualified Code: I25.110 - Coronary artery disease with unstable angina pectoris , unspecified vessel or lesion type, unspecified whether [place] or transplanted heart Jefferson Gordon Jan 24, 2017 08:04 Osmin De La Cruz MD Jan 24, 2017 08:45
[2017-01-24] MEDS: ISOSORBIDE MONONITRATE 60 MG TAB PO SCH (08:59)
[2017-01-24] MEDS: FERROUS SULFATE 325 MG (65 MG ELEMENTAL IRON) TAB PO SCH (08:59)
[2017-01-24] MEDS: NEBIVOLOL 5 MG TAB PO SCH (09:00)
[2017-01-24] MEDS ORDERED: RANOLAZINE 500 MG EXTENDED RELEASE TAB PO SCH (09:00)
[2017-01-24] MEDS: LOSARTAN 50 MG TAB PO SCH (09:01)
[2017-01-24] MEDS: GABAPENTIN 100 MG CAP PO SCH (09:01)
[2017-01-24] MEDS: PRASUGREL 10 MG TAB PO SCH (09:01)
[2017-01-24] MEDS: ASPIRIN EC 81 MG TABEC PO SCH (09:02)
[2017-01-24] MEDS: buPROPion HCL 150 MG SUSTAINED RELEASE TAB PO SCH (09:04)
[2017-01-24] MEDS: FLUTICASONE 100 MCG/VILANTEROL 25 MCG INHALER INH SCH (09:05)
--- NOTE | 2017-01-24 09:18 | HHI.PR ---
Subjective Remarks sitting on the chair comfortably with no distress. no chest pain this morning. no other complaints. Objective Vitals Vital Signs Date Time Temp Pulse Resp B/P Pulse Ox O2 Delivery O2 Flow Rate FiO2 01/24/17 08:19 98.5 82 18 109/55 96 01/24/17 07:00 86 01/24/17 06:00 75 01/24/17 05:00 73 01/24/17 04:00 78 01/24/17 04:00 98.0 74 20 147/72 98 01/24/17 03:23 73 01/24/17 02:00 70 01/24/17 01:00 73 01/24/17 00:00 98.0 73 20 112/71 98 01/24/17 00:00 73 01/23/17 23:00 74 01/23/17 22:00 73 01/23/17 20:00 98.6 74 18 119/68 98 01/23/17 20:00 74 01/23/17 19:00 74 01/23/17 15:00 78 01/23/17 15:00 98.6 76 15 116/51 96 01/23/17 11:00 82 01/23/17 11:00 98.5 83 15 104/58 96 I/O 01/23/17 01/23/17 01/23/17 01/24/17 01/24/17 01/24/17 07:00 15:00 23:00 07:00 15:00 23:00 Intake Total 480 ml 850 ml 480 ml Output Total 1150 ml 1250 ml 1000 ml Balance -670 ml -400 ml -520 ml Intake Oral 480 ml 850 ml 480 ml Output Urine Total 1150 ml 1250 ml 1000 ml # Bowel Movements 0 1 1 Result Diagram: 01/22/175 01/22/175 Imaging Last Impressions Lower Extremity Ultrasound 01/18/17 0000 Signed Impressions: Service Date/Time: Wednesday, January 18, 2017 19:28 - CONCLUSION: No evidence of DVT. Superficial venous system is patent with measurements given above. Herbert Pope MD Chest CT 01/18/17 0000 Signed Impressions: Service Date/Time: Thursday, January 19, 2017 11:25 - CONCLUSION: 1. Small nodule right lower lobe laterally measuring 5-[address] chest in 6 months recommended for stability. 2. No consolidation or mass. 3. Coronary artery disease with calcifications and stents. Jayce Biswas MD Carotid Artery Ultrasound 01/18/17 0000 Signed Impressions: Service Date/Time: Wednesday, January 18, 2017 18:47 - CONCLUSION: Bilateral calcified and non-calcified carotid plaques without sonographic or Doppler evidence of significant stenosis. Antegrade flow both vertebral arteries. Herbert Pope MD Chest X-Ray 01/17/17 1648 Signed Impressions: Service Date/Time: Tuesday, January 17, 2017 17:12 - CONCLUSION: Mild increased density right base suggesting early airspace disease. Shon Knowles MD FACR Objective Remarks GENERAL: This is a well-nourished, well-developed patient, in no apparent distress. CARDIOVASCULAR: Regular rate and regular rhythm without murmurs, gallops, or rubs. RESPIRATORY: Clear to auscultation. Breath sounds equal bilaterally. No wheezes , rales, or rhonchi. GASTROINTESTINAL: Abdomen soft, non-tender, nondistended. Normal, active bowel sounds MUSCULOSKELETAL: Extremities without clubbing, cyanosis, or edema. NEURO: Alert & Oriented x4 to person, place, time, situation. Moves all ext x4 Procedures cardiac cath. Medications and IVs Current Medications Morphine Sulfate (Morphine Inj) 4 mg ONCE ONCE IV PUSH Last administered on 17:30; Start 01/17/17 at 17:00; Stop 01/17/17 at 17:01; Status DC Nitroglycerin (Nitroglycerin 2% Oint) 1 inch ONCE ONCE TOP Last administered on 01/17/17 17:28; Start 01/17/17 at 17:00; Stop 01/17/17 at 17:01; Status DC IV Flush (NS Flush) 2 ml UNSCH PRN IVF FLUSH AFTER USING IV ACCESS; Start 01/17 at 17:00; Stop 01/17/17 at 18:18; Status DC Ondansetron HCl (Zofran Inj) 4 mg ONCE ONCE IV PUSH Last administered on 17:28; Start 01/17/17 at 17:00; Stop 01/17/17 at 17:01; Status DC IV Flush (NS Flush) 2 ml UNSCH PRN IVF FLUSH AFTER USING IV ACCESS Last administered on 01/18/17 00:13; Start 01/17/17 at 18:15; Stop 01/18/17 at 17:35 ; Status DC IV Flush (NS Flush) 2 ml BID IVF Last administered on 01/18/17 10:21; Start at 21:00; Stop 01/18/17 at 17:35; Status DC Ondansetron HCl (Zofran Inj) 4 mg Q6H PRN IV NAUSEA Last administered on 10:03; Start 01/17/17 at 18:15 Nitroglycerin (Nitroglycerin 2% Oint) 1 inch Q6HR TOP Last administered on 01/18 05:37; Start 01/18/17 at 00:00; Stop 01/18/17 at 08:11; Status DC Nitroglycerin (Nitrostat Sl) 0.4 mg Q5M PRN SL X 3 doses for chest pain Last administered on 01/19/17 21:55; Start 01/17/17 at 21:30 Acetaminophen (Tylenol) 650 mg Q6H PRN PO PAIN SCALE 1 TO 2; Start 01/17/17 at 21:30 Acetaminophen/ Hydrocodone Bitart ([place] 5-325 Mg) 1 tab Q4H PRN PO PAIN SCALE 3 TO 5 Last administered on 01/20/17 13:48; Start 01/17/17 at 21:30 Acetaminophen/ Hydrocodone Bitart ([place] 7.5-325 Mg) 1 tab Q4H PRN PO PAIN SCALE 6 TO 10 Last administered on 01/22/17 23:05; Start 01/17/17 at 21:30 Morphine Sulfate (Morphine Inj) 2 mg Q3H PRN IV BREAKTHROUGH PAIN; Start at 21:30; Stop 01/18/17 at 08:13; Status DC Naloxone HCl (Narcan Inj) 0.4 mg UNSCH PRN IV SEE LABEL COMMENTS; Start at 21:30 Atorvastatin Calcium (Lipitor) 40 mg HS PO Last administered on 01/23/17 20:56 ; Start 01/18/17 at 21:00 Bupropion HCl (Wellbutrin Xl 24 Hr) 300 mg DAILY PO ; Start 01/18/17 at 09:00; Stop 01/19/17 at 09:26; Status DC Fluticasone/ Vilanterol (Breo Ellipta 100-25 Inh) 1 puff DAILY INH Last administered on 01/24/17 09:05; Start 01/18/17 at 10:00 Gabapentin (Neurontin) 100 mg BID PO Last administered on 01/24/17 09:01; Start 01/18/17 at 09:00 Metoprolol Succinate (Toprol Xl) 25 mg DAILY PO Last administered on 01/19/17 08:55; Start 01/18/17 at 09:00; Stop 01/20/17 at 08:23; Status DC Non-Formulary Medication 1 tab DAILY PO BPM; Start 01/18/17 at 09:00; Status UNV Nitroglycerin (Nitroglycerin 2% Oint) 0.5 inch Q6HR TOP Last administered on 06:00; Start 01/18/17 at 12:00; Stop 01/20/17 at 08:22; Status DC Aspirin (Ecotrin Ec) 325 mg DAILY PO Last administered on 01/19/17 08:55; Start 01/18/17 at 09:00; Stop 01/20/17 at 08:22; Status DC Losartan Potassium (Cozaar) 50 mg DAILY PO Last administered on 01/21/17 09:00 ; Start 01/18/17 at 09:00; Stop 01/22/17 at 08:42; Status DC Hydrochlorothiazide (Microzide) 12.5 mg DAILY PO Last administered on 10:21; Start 01/18/17 at 09:00; Stop 01/18/17 at 10:40; Status DC Hydrocortisone Sodium Succinate (SoluCORTEF INJ) 200 mg ONCE ONCE IV Last administered on 01/18/17 11:00; Start 01/18/17 at 11:00; Stop 01/18/17 at 11:01 ; Status DC Albuterol/ Ipratropium (Duoneb Neb) 1 ampule Q6HR NEB PRN NEB SHORTNESS OF BREATH; Start 01/18/17 at 12:00 Midazolam HCl (Versed Inj) 2 mg STK-MED ONCE .ROUTE Last administered on 12:10; Start 01/18/17 at 12:10; Stop 01/18/17 at 12:11; Status DC Fentanyl Citrate (fentaNYL INJ) 100 mcg STK-MED ONCE .ROUTE Last administered on 01/18/17 12:10; Start 01/18/17 at 12:10; Stop 01/18/17 at 12:11; Status DC Hydrocortisone Sodium Succinate (SoluCORTEF INJ) 200 mg STK-MED ONCE .ROUTE ; Start 01/18/17 at 12:10; Stop 01/18/17 at 12:11; Status DC Heparin Sodium (Porcine) 50578 units 10,000 units STK-MED ONCE .ROUTE Last administered on 01/18/17 12:10; Start 01/18/17 at 12:10; Stop 01/18/17 at 12:11 ; Status DC Heparin Sodium/ Sodium Chloride (Heparin-NS/Pf Inj) 500 ml @ As Directed STK- MED ONCE .ROUTE Last administered on 01/18/17 12:11; Start 01/18/17 at 12:11; Stop 01/18/17 at 12:12; Status DC Diphenhydramine HCl (Benadryl Inj) 50 mg STK-MED ONCE .ROUTE Last administered on 01/18/17 12:14; Start 01/18/17 at 12:14; Stop 01/18/17 at 12:15; Status DC Miscellaneous Information 1 1 ONCE ONCE XX ; Start 01/18/17 at 12:45; Stop at 13:01; Status DC Sodium Chloride (NS 1000 ml Inj) 1,000 ml @ 100 mls/hr Q10H IV Last administered on 01/18/17 22:38; Start 01/18/17 at 12:38; Stop 01/19/17 at 00:37 ; Status DC Bacitracin (Bacitracin Oint Packet) 0.9 gm ONCE ONCE TOP ; Start 01/18/17 at 12 :45; Stop 01/18/17 at 13:01; Status DC Iohexol (OMNIPAQUE 350 INJ (Demand Generation Manager)) 50 ml STK-MED ONCE OTHER ; Start at 13:54; Stop 01/18/17 at 13:55; Status DC IV Flush (NS Flush) 2 ml BID IV FLUSH Last administered on 01/23/17 21:01; Start 01/18/17 at 21:00 IV Flush 2 ml 2 ml UNSCH PRN IV FLUSH FLUSH AFTER USING IV ACCESS; Start at 17:15 Papaverine HCl 60 mg/Nitroglycerin 100 mcg/Diltiazem HCl 100 mg/Sodium Chloride 100.0 ml @ 0 mls/hr [employer] ; Start 01/18/17 at 17:15; Stop at 17:14 Cefazolin Sodium 500 mg/Sodium Chloride 505 ml @ 0 mls/hr [employer] ; Start 01/18/17 at 17:15; Stop 01/25/17 at 17:14 Cefazolin Sodium/ Dextrose (Ancef 2 Gm Premix) 50 ml @ 150 mls/hr [place] [employer] IV ; Start 01/18/17 at 17:15; Stop 01/25/17 at 17:14 Metoprolol Tartrate (Lopressor) 12.5 mg [place] [employer] PO ; Start 01/18/17 at 17:15; Stop 01/25/17 at 17:14 Chlorhexidine Gluconate 1 applic 1 applic [employer] TOPICAL ; Start 01/18/17 at 17:15; Stop 01/25/17 at 17:14 Insulin Human Regular/Sodium Chloride (NovoLIN R (IV INFUSION)/NS Inj) 101 ml @ 0 mls/hr [place] [employer] IV ; Start 01/18/17 at 17:15; Stop 01/25/17 at 17:14 Dextrose (D50w (Vial) Inj) 25 ml UNSCH PRN IV PUSH HYPOGLYCEMIA-SEE COMMENTS; Start 01/19/17 at 09:00 Glucagon (Glucagon Inj) 1 mg UNSCH PRN OTHER HYPOGLYCEMIA-SEE COMMENTS; Start 01/19/17 at 09:00 Insulin Aspart (NovoLOG SUPPLEMENTAL SCALE) 1 ACHS SLIDING SCALE SQ Last administered on 01/24/17 06:46; Start 01/19/17 at 11:00 Potassium Chloride (KCl) 30 meq ONCE ONCE PO Last administered on 01/19/17 09: 38; Start 01/19/17 at 09:00; Stop 01/19/17 at 09:06; Status DC Bupropion HCl (Wellbutrin Sr) 150 mg BID PO Last administered on 01/23/17 08:49 ; Start 01/19/17 at 09:30 Morphine Sulfate (Morphine Inj) 2 mg Q4HR PRN IV PUSH CHEST PAIN-NOT RELEIVED BY ORAL MEDS; Start 01/20/17 at 07:45 Aspirin (Ecotrin Ec) 81 mg DAILY PO Last administered on 01/24/17 09:02; Start 01/20/17 at 09:00 Isosorbide Mononitrate (Imdur) 60 mg DAILY@07 PO Last administered on 01/23/17 06:09; Start 01/20/17 at 08:30; Stop 01/23/17 at 12:09; Status DC Clopidogrel Bisulfate (Plavix) 600 mg ONCE ONCE PO Last administered on 09:53; Start 01/20/17 at 08:30; Stop 01/20/17 at 08:38; Status DC Clopidogrel Bisulfate (Plavix) 75 mg DAILY PO ; Start 01/20/17 at 09:00; Stop 01/20/17 at 09:00; Status DC Carvedilol 3.125 mg 3.125 mg Q12HR PO Last administered on 01/22/17 08:39; Start 01/20/17 at 09:00; Stop 01/22/17 at 15:32; Status DC Sodium Chloride (NS 1000 ml Inj) 1,000 ml @ 83 mls/hr Q12H3M IV Last administered on 01/20/17 08:23; Start 01/20/17 at 08:23; Stop 01/20/17 at 20:22; Status DC Clopidogrel Bisulfate (Plavix) 75 mg DAILY PO Last administered on 01/21/17 09: 12; Start 01/21/17 at 09:00; Stop 01/21/17 at 10:58; Status DC Prasugrel (Effient) 60 mg ONCE ONCE PO ; Start 01/21/17 at 11:30; Stop 01/21/17 at 11:31; Status DC Prasugrel 10 mg 10 mg DAILY PO Last administered on 01/24/17 09:01; Start at 09:00 Heparin Sodium/ Sodium Chloride (Heparin-NS/Pf Inj) 500 ml @ As Directed STK- MED ONCE .ROUTE ; Start 01/21/17 at 11:31; Stop 01/21/17 at 11:32; Status DC Diphenhydramine HCl (Benadryl Inj) 50 mg STK-MED ONCE .ROUTE Last administered on 01/21/17 11:39; Start 01/21/17 at 11:39; Stop 01/21/17 at 11:40; Status DC Methylprednisolone Sodium Succinate (SoluMEDROL INJ) 125 mg STK-MED ONCE .ROUTE Last administered on 01/21/17 11:39; Start 01/21/17 at 11:39; Stop 01/21/17 at 11:40; Status DC Midazolam HCl (Versed Inj) 2 mg STK-MED ONCE .ROUTE Last administered on 11:39; Start 01/21/17 at 11:39; Stop 01/21/17 at 11:40; Status DC Fentanyl Citrate (fentaNYL INJ) 100 mcg STK-MED ONCE .ROUTE Last administered on 01/21/17 11:51; Start 01/21/17 at 11:39; Stop 01/21/17 at 11:40; Status DC Heparin Sodium (Porcine) (Heparin Inj) 10,000 units STK-MED ONCE .ROUTE ; Start 01/21/17 at 11:56; Stop 01/21/17 at 11:57; Status DC Lidocaine HCl (Xylocaine-Mpf 1% Inj) 30 ml STK-MED ONCE .ROUTE ; Start 01/21/17 at 11:57; Stop 01/21/17 at 11:58; Status DC Midazolam HCl (Versed Inj) 2 mg STK-MED ONCE .ROUTE Last administered on 13:38; Start 01/21/17 at 13:38; Stop 01/21/17 at 13:39; Status DC Fentanyl Citrate (fentaNYL INJ) 100 mcg STK-MED ONCE .ROUTE Last administered on 01/21/17 13:38; Start 01/21/17 at 13:38; Stop 01/21/17 at 13:39; Status DC Lidocaine HCl 1 applic 1 applic UNSCH PRN TOP CATHETER INSERTION; Start at 14:45 Sodium Chloride (NS 1000 ml Inj) 1,000 ml @ 100 mls/hr Q10H IV Last administered on 01/21/17 14:43; Start 01/21/17 at 14:43; Stop 01/22/17 at 02:42; Status DC Miscellaneous Information 1 ONCE ONCE XX ; Start 01/21/17 at 14:45; Stop at 15:09; Status DC Lorazepam 0.5 mg 0.5 mg UNSCH PRN IV ANXIETY Last administered on 01/22/17 00: 17; Start 01/21/17 at 14:45; Stop 01/22/17 at 14:44; Status DC Sodium Chloride (NS 250 ml Inj) 250 ml @ 500 mls/hr ONCE PRN IV VAGAL REPONSE ; Start 01/21/17 at 14:45; Stop 01/22/17 at 14:44; Status DC Metoclopramide HCl (Reglan Inj) 10 mg Q4H PRN IV NAUSEA; Start 01/21/17 at 14:45 Lidocaine HCl (Xylocaine 1% Inj (50 ml)) 10 ml UNSCH PRN INFIL SHEATH REMOVAL; Start 01/21/17 at 14:45; Stop 01/22/17 at 14:44; Status DC Bacitracin (Bacitracin Oint Packet) 0.9 gm ONCE ONCE TOP ; Start 01/21/17 at 14: 45; Stop 01/21/17 at 15:01; Status DC Prasugrel (Effient) 60 mg STK-MED ONCE .ROUTE Last administered on 01/21/17 15: 09; Start 01/21/17 at 15:09; Stop 01/21/17 at 15:10; Status DC Clonidine (Catapres) 0.2 mg Q6H PRN PO SBP>160, DBP>90; Start 01/21/17 at 15:45 Ferrous Sulfate (Ferrous Sulfate) 325 mg DAILY PO Last administered on 08:59; Start 01/22/17 at 09:00 Iohexol (OMNIPAQUE 350 INJ (Demand Generation Manager)) 100 ml STK-MED ONCE OTHER ; Start at 15:44; Stop 01/21/17 at 15:45; Status DC Iohexol (OMNIPAQUE 350 INJ (Demand Generation Manager)) 50 ml STK-MED ONCE OTHER ; Start 01/21/17 at 15:44; Stop 01/21/17 at 15:45; Status DC Losartan Potassium (Cozaar) 25 mg DAILY PO Last administered on 01/24/17 09:01 ; Start 01/22/17 at 09:00 Nitroglycerin (Nitroglycerin 2% Oint) 1 inch STK-MED ONCE .ROUTE Last administered on 01/22/17 15:19; Start 01/22/17 at 15:16; Stop 01/22/17 at 15:17; Status DC Nitroglycerin (Nitroglycerin 2% Oint) 1 inch Q6HR TOPICAL Last administered on 01/24/17 06:46; Start 01/22/17 at 18:00; Stop 01/24/17 at 08:33; Status DC Nebivolol (Bystolic) 5 mg DAILY PO Last administered on 01/24/17 09:00; Start 01/23/17 at 09:00 Isosorbide Mononitrate (Imdur) 60 mg BID PO Last administered on 01/24/17 08:59 ; Start 01/23/17 at 21:00 Ranolazine (Ranexa) 500 mg Q12HR PO ; Start 01/24/17 at 09:00 A/P Assessment and Plan A/P - CAD initial cardiac cath with three vessel disease; CT surgery consulted for CABG ; however due to poor lung function, CABG was cancelled- had repeated cardiac cath and PCI- continue aspirin, effient,imdur, BB, losartan and statin- ranexa was added. cleared by cardiology for discharge. -hypertension; continue losartan , imdur and Bystolic will monitor and adjust the regimen as needed -diabetes mellitus; diet-controlled- accu-check with SSI -COPD with chronic respiratory failure- oxygen dependent; continue Breo Ellipta and neb treatment -right lung nodule; f/u as outpatient; this was d/w the RN. -DVT prophylaxis with SCD's d/w . Discharge Planning dc home with f/u by pcp and cardiology. consult case management for HHC. see med list. d/w the patient and . time spent 31 min. Bogdan Pedro MD Jan 24, 2017 09:18
--- NOTE | 2017-01-24 09:19 | HHI.FF ---
Face to Face Verification Diagnosis: (1) Coronary artery disease (2) Unstable angina Home Health Nursing Order: Medical education Signs/symptoms of disease process Medication education-adverse effect Nursing assessment with vital signs I have seen patient Elizabeth Raines on 01/24/17. My clinical findings support the need for the requested home health care services because: Ltd mobility - disease progression I certify that my clinical findings support that this patient is homebound because: Poor cardiac reserve Bogdan Pedro MD Jan 24, 2017 09:19
[2017-01-24] MEDS ORDERED: COZA50TA PO (09:23)
[2017-01-24] MEDS ORDERED: RANO500 PO (09:23)
[2017-01-24] MEDS ORDERED: ISOS60TA PO (09:23)
--- NOTE | 2017-01-24 09:23 | HHI.DS ---
Discharge Summary Admission Date Jan 19, 2017 at 13:28 Discharge Date: Jan 24, 2017 Admitting Diagnosis CHEST PAIN (1) Chest pain ICD Code: R07.9 Diagnosis: Principal (2) Unstable angina ICD Code: I20.0 Diagnosis: Principal (3) Coronary artery disease ICD Code: I25.10 Diagnosis: Secondary (4) Hypertension ICD Code: I10 Diagnosis: Secondary (5) Hyperlipidemia ICD Code: E78.5 Diagnosis: Secondary (6) Diabetes ICD Code: E11.9 Diagnosis: Secondary Procedures cardiac cath. Brief History - From Admission 66-year-old female with known history of hypertension, hyperlipidemia , coronary disease, cardiac stent placement, diabetes, chronic respiratory failure with oxygen dependency, chronic affective pulmonary disease, history of tobacco use who presented to hospital because 2 day history of chest pain. Patient states that she started developing pain 2 days ago which developed in her left scapular region and radiated into her left anterior chest initially, then started developing left anterior chest pain radiating into the left arm. She denied any nausea, vomiting with the chest discomfort. She did state that she had episodes of feeling hot flash. She did have shortness of breath and dyspnea. She states that the pain can happen at all times. Management happening at rest when she is sitting down relaxing. The pain lasts for approximately 5 minutes in a crescendo type pain with worsening pain 8/10 on a pain scale at its peak. She did not take any medication at home. She does have history coronary artery disease with 2 stent placement. 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 She is not on any aspirin at this time she is on statin for hyperlipidemia. Patient states that the pain did not improve so she came to emergency department for evaluation patient was started on nitroglycerin with minimal relief. She does have nitro paste on at this time and still having active chest pain. Patient did have chest discomfort while evaluating her this morning. Patient did appear to be distressed with her chest discomfort. She was having shortness of breath and dyspnea. Patient was given sublingual with improvement of her chest discomfort. CBC/BMP: 01/22/17 0315 01/22/17 0315 Significant Findings Laboratory Tests Test 01/22/17 01/22/17 01/23/17 03:15 17:47 05:25 Red Blood Count 3.91 MIL/MM3 (4.00-5.30) Neutrophils (%) (Auto) 89.5 % (16.0-70.0) Lymphocytes (%) (Auto) 4.4 % (9.0-44.0) Neutrophils # (Auto) 9.3 TH/MM3 (1.8-7.7) Lymphocytes # (Auto) 0.5 TH/MM3 (1.0-4.8) Estimat Glomerular Filtration 70 ML/MIN (>89) Rate Random Glucose 196 MG/DL (74-106) Calcium Level 8.3 MG/DL (8.5-10.1) HDL Cholesterol 82.9 MG/DL (40.0-60.0) Troponin I 1.68 NG/ML 1.41 NG/ML (0.02-0.05) (0.02-0.05) Imaging Last Impressions Lower Extremity Ultrasound 01/18/17 0000 Signed Impressions: Service Date/Time: Wednesday, January 18, 2017 19:28 - CONCLUSION: No evidence of DVT. Superficial venous system is patent with measurements given above. Herbert Pope MD Chest CT 01/18/17 0000 Signed Impressions: Service Date/Time: Thursday, January 19, 2017 11:25 - CONCLUSION: 1. Small nodule right lower lobe laterally measuring 5-[address] chest in 6 months recommended for stability. 2. No consolidation or mass. 3. Coronary artery disease with calcifications and stents. Jayce Biswas MD Carotid Artery Ultrasound 01/18/17 0000 Signed Impressions: Service Date/Time: Wednesday, January 18, 2017 18:47 - CONCLUSION: Bilateral calcified and non-calcified carotid plaques without sonographic or Doppler evidence of significant stenosis. Antegrade flow both vertebral arteries. Herbert Pope MD Chest X-Ray 01/17/17 1648 Signed Impressions: Service Date/Time: Tuesday, January 17, 2017 17:12 - CONCLUSION: Mild increased density right base suggesting early airspace disease. Shon Knowles MD FACR PE at Discharge GENERAL: This is a well-nourished, well-developed patient, in no apparent distress. CARDIOVASCULAR: Regular rate and regular rhythm without murmurs, gallops, or rubs. RESPIRATORY: Clear to auscultation. Breath sounds equal bilaterally. No wheezes , rales, or rhonchi. GASTROINTESTINAL: Abdomen soft, non-tender, nondistended. Normal, active bowel sounds MUSCULOSKELETAL: Extremities without clubbing, cyanosis, or edema. NEURO: Alert & Oriented x4 to person, place, time, situation. Moves all ext x4 Hospital Course - CAD initial cardiac cath with three vessel disease; CT surgery consulted for CABG ; however due to poor lung function, CABG was cancelled- had repeated cardiac cath and PCI- continue aspirin, effient,imdur, BB, losartan and statin- ranexa was added. cleared by cardiology for discharge. -hypertension; continue losartan , imdur and Bystolic will monitor and adjust the regimen as needed -diabetes mellitus; diet-controlled- accu-check with SSI -COPD with chronic respiratory failure- oxygen dependent; continue Breo Ellipta and neb treatment -right lung nodule; f/u as outpatient; this was d/w the RN. -DVT prophylaxis with SCD's Pt Condition on Discharge: Good Discharge Disposition: Disch w/ Home Health Serv Discharge Time: > 30 minutes Discharge Instructions DIET: Follow Instructions for: Heart Healthy Diet, Diabetic Diet Activities you can perform: Regular-No Restrictions Follow up Referrals: Cardiology PCP Follow-up New Medications: Aspirin DR (Aspirin EC) 81 Mg Tabdr 81 MG PO DAILY cad Days 30 Ref 0 TAB Isosorbide Mononitrate ER (Isosorbide Mononitrate ER) 60 Mg Tab 60 MG PO BID cad Days 30 Ref 0 TAB Losartan (Cozaar) 50 Mg Tab 25 MG PO DAILY cad Days 30 Ref 0 TAB Nebivolol (Bystolic) 5 Mg Tab 5 MG PO DAILY cad Days 30 Ref 0 TAB Prasugrel (Effient) 10 Mg Tab 10 MG PO DAILY cad Days 30 Ref 0 TAB Ranolazine ER 12 HR (Ranexa ER 12 HR) 500 Mg Tab 500 MG PO Q12HR cad Days 30 Ref 0 TAB Continued Medications: Albuterol 18 GM Inh (Ventolin Hfa 18 GM Inh) 90 Mcg/Act Aer 1 PUFF INH Q4H PRN SHORTNESS OF BREATH #1 Ref 0 INHALER Atorvastatin (Atorvastatin) 40 Mg Tab 40 MG PO HS Cholesterol Management #30 Ref 0 TAB Bupropion HCl ER 24 HR (Bupropion HCl ER 24 HR) 300 Mg Tab 300 MG PO DAILY Control Depression Ref 0 TAB Fluticasone-Vilanterol Inh (Breo Ellipta Inh) 100-25 Mcg/Act Inh 1 PUFF INH DAILY Use daily at the same time. #1 Ref 0 INHALER Gabapentin (Gabapentin) 100 Mg Cap 100 MG PO BID #60 Ref 0 CAP Melatonin (Melatonin) 10 Mg Tab 10 MG PO HS PRN SLEEP Ref 0 TAB Nitroglycerin Lingual [place] (Nitroglycerin Lingual [place]) 400 Mcg/Act [place] 1 SPRAY SL DIRECTED ONE SPRAY NEEDED FOR CHEST PAIN, MAY REPEAT EVERY FIVE MINUTES FOR A TOTAL OF 3 DOSES OR CALL 911 IF NO RELIEF PRN CHEST PAIN #1 Ref 0 CONTAINER Tiotropium Inh (Spiriva Handihaler) 18 Mcg Cap 18 MCG INH DAILY 1 capsule = 18 mcg COPD #30 Ref 0 CAP Discontinued Medications: Losartan-Hydrochlorothiazide (Losartan-Hydrochlorothiazide) 50-12.5 Mg Tab 1 TAB PO DAILY Blood Pressure Management #30 Ref 0 TAB Metoprolol Succinate ER 24 HR (Metoprolol Succinate ER 24 HR) 25 Mg Tab 25 MG PO DAILY #30 Ref 0 TAB Bogdan Pedro MD Jan 24, 2017 09:23
--- NOTE | 2017-01-24 10:01 | EKG ---
Date Performed: 01/17/2017 Time Performed: 16:45:06 PTAGE: 66 years EKG: Sinus rhythm Normal ECG NO PREVIOUS TRACING DOCTOR: Valerie Mcclain Interpretating Date/Time 01/24/2017 09:59:58
[2017-01-24] MEDS: ACETAMINOPHEN/HYDROcodone 325 MG/5 MG TAB PO PRN (11:14)
--- NOTE | 2017-01-24 14:53 | MA ---
cc: JAYESHOSMIN DATE: 01/21/2017 PRIMARY CARE PHYSICIAN Osmin zhao MD, [facility] INDICATION The patient has severe three-vessel apache coronary disease. She was referred for coronary bypass surgery but ultimately was not felt to be a good surgical candidate given her poor pulmonary function. Therefore after a lengthy discussion with the patient all risks, benefits, alternatives, she was agreeable to attempt at high risk percutaneous intervention given her ongoing & progressive symptoms. Given her heavy calcium present and need for multivessel atherectomy, we decided it was necessary to implant the Abiomed Impella left ventricular assist device for hemodynamic support. PROCEDURE PERFORMED 1. Fluoroscopy interpretation 2. Coronary angiography 3. Left lower extremity angiography with first, second order visualization. 4. Percutaneous temporary transvenous pacemaker placement. 5. An insertion of external heart assist device using Impella 6. Assistance with cardiac output using Impella on a pump, continuous. 7. Orbital rotational atherectomy with CSI atherectomy catheter of the proximal left anterior descending coronary artery. 8. Orbital rotational atherectomy of the mid right coronary artery. 9. Percutaneous endovascular stenting with drug-eluting stents to the proximal left anterior descending coronary artery, mid left circumflex coronary artery, and mid to distal right coronary artery. METHOD: Risks and alternatives us with the patient. The patient stood to the procedure. The patient brought the catheterization lab placed on the catheterization table. Bilateral groins were prepped and draped in sterile fashion. Right groin was anesthetized 2% lidocaine per right common femoral artery is cannulated 6-Palestinian 11 cm sheath was placed without difficulty. Right femoral vein was also accessed and a 6-Palestinian 11 cm sheath was placed. Left lower extremity angiography; A 5-Palestinian rim catheter selectively engage the left common iliac artery, angiography was performed to the rim catheter. There did appear to be a moderate-sized aneurysm in the proximal iliac common iliac artery although it was not very well visualized. The left external and internal iliac arteries have luminal irregularities, the common femoral artery is good caliber size with minor luminal irregularities. Coronary angiography; please see detailed diagnostic cardiac catheterization performed on 01/18/2017. CORONARY ANATOMY: 1. Left main coronary has distal 30% stenosis. 2. Left anterior descending coronary has heavy calcium present through its proximal mid course, with 90% tubular stenosis. The diagonal branch has moderate disease and is small caliber size. 3. Left circumflex gives rise to a large first obtuse marginal branch of 75% stenosis at the bifurcation remainder of the AV groove circumflex has smaller caliber size. 4. Right coronary dominant vessel and heavily calcified 95% subtotally occluded through its entire mid to distal course posterior descending branch has minor luminal irregularities. Temporary transvenous pacemaker placement: A 5-Palestinian balloon-tipped temporary transvenous pacemaker was then advanced into the right ventricular apex under fluoroscopic guidance transcutaneous pacing was confirmed utilized through the procedure. Abiomed left ventricular assist device, Impella insertion: the left common femoral artery was accessed, a 6-Palestinian sheath was placed. Two Perclose sutures were placed and held in position with a hemostat to be utilized at the end of procedure. A 9-Palestinian sheath was then used to dilate left common femoral artery and the 13-Palestinian Abiomed sheath was then advanced into the left common femoral artery without difficulty. A 6-Palestinian JR-4 catheter was then advanced ascending aorta. The J wire was advanced across the aortic valve and the JR-4 catheter advanced in the left ventricle. The wire was then removed. The 0.018 inch Abiomed wire was then advanced into the left ventricle through the JR-4 catheter and the JR-4 catheter removed. The Impella left ventricular assisted device was then prepped and advanced over the wire and across the aortic valve. The device was initiated. Appropriate placement was confirmed by fluoroscopy. Cardiac output assistance was preformed continuously throughout the entire procedure. At the completion of the procedure the device was removed in the catheterization lab. Percutaneous intervention; left coronary circulation was selectively engages 6-Palestinian XB LAD 3.5 guide catheter 0.014 inch 300 cm Terumo run-through wire was navigated down to the distal left anterior descending coronary artery. A 1.5 x 6 mm over the wire balloon was then advanced down to the distal left anterior descending coronary artery and the wire removed. A 0.014 inch 335 cm viper wire was then navigated down the distal left anterior descending coronary through the over the wire balloon. The wire and the balloon removed 1.25 mm CSI atherectomy catheter was then advanced into the proximal left anterior descending coronary and three sequential passes were performed at 80, 80 and 120,000 revolutions per minute. A 3.0 x 15 mm Medtronic balloon was then deployed on two sequential inflations in the left anterior descending coronary prox to mid segment. Repeat angiography still showed severe residual stenosis with JESS III flow. A 3.0 x 30 mm Resolute drug-eluting stent was advanced to the proximal left anterior descending coronary extending into the mid segment and deployed. The distal stent was post dilated using a 3.25 x 12 mm NC balloon to 20 atmospheres. Repeat angiography showed no residual stenosis. Attention was then directed towards the left circumflex coronary artery. A 0.014 Terumo run-through wire was navigated to the distal first obtuse marginal branch. The 3.0 x 15 mm balloon was then deployed at the origin of the obtuse marginal branch. A 3.0 x 18 mm Medtronic Resolute drug-eluting stent was advanced to the mid left circumflex extending into the first obtuse marginal branch and deployed. The AV circumflex did have plaque shifting within the proximal segment but there was still JESS III flow. The wire was then removed. Attention was then directed towards the right coronary artery. Right coronary was selectively engaged with a 6-Palestinian XB RCA guide catheter. A 0.014 inch 300 cm Terumo run-through wire navigated down the distal segment of the posterior descending branch. The 1.25 x 6 mm Medtronic over the wire balloon was advanced down the distal posterior descending branch. The wire was removed and replaced with a Viper wire. A 1.25 mm CSI atherectomy catheter was then advanced into the mid-right coronary artery and three sequential passes at 80,000 revolutions per minute were performed to the mid to distal segment of the right coronary artery. A 2.5 x 30 mm Medtronic balloon was then deployed on three sequential inflations to the mid to distal right coronary artery. Repeat angiography still shows severe residual stenosis. A 2.5 by a 30 mm Medtronic Resolute drug-eluting stent was deployed in the mid to distal right coronary artery. 2.75 x 30 mm Resolute drug-eluting stent was advanced to the mid-right coronary artery and deployed. The proximal segment of the stent was then postdilated using a 3.5 x 15 mm Medtronic noncompliant balloon to 16 atmospheres. A 4.0 x 8 mm Resolute drug-eluting stent was deployed in the ostium of the right coronary artery due to continued significant dampening with catheter engagement. Repeat angiography showed no significant residual stenosis, JESS III flow wire was removed. Catheter removed. Right common femoral artery sheath was then removed and Angio-Seal device deployed with good hemostasis. The left 13-Palestinian common femoral sheath was then removed and two Perclose devices were utilized for good hemostasis. CONCLUSION 1. Severe three-vessel apache coronary disease. 2. Successful orbital rotational atherectomy, endovascular stenting with drug-eluting stents to the proximal left anterior descending coronary artery and mid to distal right coronary artery. 3. Successful endovascular stenting of the mid left circumflex coronary artery. 4. Successful utilization of temporary transvenous pacemaker placement. 5. Insertion of external heart therapeutic assistant was system percutaneously with Impella device. 6. Continuous cardiac output therapeutic assistant with Impella device. PLAN Hopefully this will translate to symptomatic improvement. She has had a fairly full revascularization. We will gently hydrate her given the contrast load administered. Hopefully anticipate discharge in the near future. She will need outpatient followup and once she fully recovers, I would anticipate a CT scan of the abdomen to better assess the descending aorta and common iliac arteries. She may need surgical endovascular repair iliac aneurysm. She will be initiated Effient given her Plavix resistance documented by her [id number] assay. MD JOHNATHAN Wynne/mallorie /2:53 PM /12:59 PM HODAN
== END 2017-01-24 11:20 | disposition home health service (06) | DRG 215 ==
LOC: PHED 16:39 → PHEDA 18:13 → PH3A 22:18 → HCIS 01-18 11:57 → OBSVTOIN 01-19 13:28 → HCVR 01-21 09:49 → HCIN 01-23 17:30
PROVIDERS: ADMIT Internal Medicine; ATTEND Internal Medicine
PROC: 5A0221D Assistance with Cardiac Output using Impeller Pump, Continuous (ICD-10-PCS; 2017-01-21)
PROC: X2C1361 Extirpation of Matter from Coronary Artery, Two Arteries using Orbital Atherectomy Technology, Percutaneous Approach, New Technology Group 1 (ICD-10-PCS; 2017-01-21)
PROC: 027237Z Dilation of Coronary Artery, Three Arteries with Four or More Drug-eluting Intraluminal Devices, Percutaneous Approach (ICD-10-PCS; 2017-01-21)
PROC: 4A023N7 Measurement of Cardiac Sampling and Pressure, Left Heart, Percutaneous Approach (ICD-10-PCS; 2017-01-21)
PROC: B2111ZZ Fluoroscopy of Multiple Coronary Arteries using Low Osmolar Contrast (ICD-10-PCS; 2017-01-21)
PROC: B2111ZZ Fluoroscopy of Multiple Coronary Arteries using Low Osmolar Contrast (ICD-10-PCS; 2017-01-21)
PROC: B41G1ZZ Fluoroscopy of Left Lower Extremity Arteries using Low Osmolar Contrast (ICD-10-PCS; 2017-01-21)
PROC: 5A1223Z Performance of Cardiac Pacing, Continuous (ICD-10-PCS; 2017-01-21)
PROC: 02HA3RZ Insertion of Short-term External Heart Assist System into Heart, Percutaneous Approach (ICD-10-PCS; principal; 2017-01-21 11:00)
DX: I25.110 Atherosclerotic heart disease of native coronary artery with unstable angina pectoris (principal); J96.11 Chronic respiratory failure with hypoxia; E87.2 Acidosis; Z99.81 Dependence on supplemental oxygen; G62.9 Polyneuropathy, unspecified; J44.9 Chronic obstructive pulmonary disease, unspecified; I10 Essential (primary) hypertension; E78.5 Hyperlipidemia, unspecified; E11.9 Type 2 diabetes mellitus without complications; R91.1 Solitary pulmonary nodule; I25.2 Old myocardial infarction; F41.9 Anxiety disorder, unspecified; Z87.891 Personal history of nicotine dependence; Z91.041 Radiographic dye allergy status; Z95.5 Presence of coronary angioplasty implant and graft
CPT/HCPCS: 33210; 33990; 36600; 71010; 71250; 80048; 80061; 82550; 82805; 82948; 83036; 83735; 83880; 84484; 85002; 85025; 85347; 85576; 85610; 85730; 86850; 86900; 86901; 86920; 87641; 92928; 92933; 92934; 93005; 93306; 93454; 93880; 93970; 93998; 96374; 96375; C1725; C1751; C1760; C1769; C1874; C1887; C1893; G0269; G0378; J1200; J1644; J1720; J1815; J2060; J2250; J2270; J2405; J2930; J3010; J7030; Q9967

== ENCOUNTER → 2017-02-10 | Outpatient (CLI) | payer MEDICARE ==
[~2017-02-10] MED LIST changes: -ADVAI250I PO; -ASPI81CH3 PO; +ASPI81TA11 PO; +ATOR40TA16 PO; +BUPR300T PO; +BYST5TAB2 PO; +COZA50TA PO; +FLUT1INH INH; -GLUC10TA3 PO; +IOHEXOL 350 MG/ML 10 ML VIAL (for RAD DIAG) IV ONE; +ISOS60TA PO; -LOSA100T3 PO; +MELA1TAB18 PO; -METF500 PO; -METO25TA6 PO; +NITR400A5 SL; +PRAS10TA PO; -PREG100 PO; +RANO500 PO; +SPIRCAP INH; -TIOT18I INH; -WELLTAB39 PO
[2017-02-10 13:30] VITALS: BP 145/81; PULSE 81; RESP 18; TEMP 98.1; O2SAT 94
[2017-02-10 14:18] VITALS: BP 154/88; PULSE 78; RESP 18; O2SAT 97
--- NOTE | 2017-02-10 15:31 | RADRPT ---
EXAM DATE/TIME: 02/10/2017 13:05 [place] COMPARISON: CT THORAX W/O CONTRAST, January 19, 2017, 11:25. INDICATIONS : Iliac artery aneurysm. IV CONTRAST: 80 cc Omnipaque 350 (iohexol) IV RADIATION DOSE: 6.01 CTDIvol (mGy) MEDICAL HISTORY : Cardiovascular disease. SURGICAL HISTORY : Tubal ligation. Hysterectomy. ENCOUNTER: Initial ACUITY: 1 day PAIN SCALE: 0/10 LOCATION: lower quadrant Patient was premedicated for underlying contrast media allergy. TECHNIQUE: Volumetric scanning was performed using a multi-row detector CT scanner. The data was post processed with a variety of visualization algorithms including full volume maximum intensity projection, multi -planar sliding thin slab reformation, curved planar reformation, and surface rendering techniques. Using automated exposure control and adjustment of the mA and/or kV according to patient size, radiat ion dose was kept as low as reasonably achievable to obtain optimal diagnostic quality images. FINDINGS: Abdominal aorta: The celiac and SMA origins are widely patent. There are single renal arteries bilaterally. The renal arteries are widely patent. The infrarenal aorta is mildly aneurysmal measuring 3.5 cm. The ISAAK is pa tent. Pelvis: There is extensive atherosclerotic plaquing in the common iliac on the left. This results in only mil d stenosis. The right common iliac is adequate in caliber as well. 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 This is mostly occluded. The external iliac circ ulation on the right is widely patent. The hypogastric origin on the left is diseased but patent. The left external iliac is adequate in caliber bilaterally. Right leg: The right common femoral is diseased but adequate. The profunda femoral is patent. The superficial fe moral demonstrates sclerotic plaquing throughout its course with scattered areas of moderate stenosis . There is focal high grade stenosis at the adductor hiatus. The distal SFA and popliteal returns to a more normal caliber. Distally, all 3 trifurcation vessels are patent. Left leg: The left common femoral and profunda femoral disease but adequate in caliber. The superficial femoral demonstrates diffuse atherosclerotic plaquing throughout its course. There are scattered areas of mi ld to moderate stenosis with high grade stenosis at the adductor hiatus. The popliteal is adequate in caliber. All [address] trifurcation vessels are patent. CT source data: The solid organs of the abdomen are intact. The patient is post cholecystectomy. No free air or free fluid is present. The visualized bony structures are intact. CONCLUSION: 1. Mildly aneurysmal infrarenal aorta with a maximum dimension of 3.5 cm. 2. 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 This is predominantly thrombosed. 3. Diseased but adequate in flow down to the level of the groin bilaterally. 4. Right leg: Patchy disease throughout the superficial femoral with scattered areas of mild to moder ate stenosis. There is high grade stenosis/subtotal occlusion at the adductor hiatus. Distal runoff v essels are adequate. 5. Left leg: Scattered areas of disease throughout the superficial femoral with a high grade stenosis at the level of the adductor hiatus. Distal runoff vessels are adequate. Carlos Alberto Knowles MD on February 10, 2017 at 15:21 Board Certified Radiologist. This report was verified electronically.
== END ==
LOC: HRAD 12:23
PROVIDERS: ATTEND Internal Medicine
DX: I72.3 Aneurysm of iliac artery (principal)
CPT/HCPCS: 75635; Q9967